=== PATIENT | female | born 1960 | race Caucasian/White ===

== ENCOUNTER 2025-05-26 08:18 | Emergency (ER) | payer OTHER, SELFPAY ==
--- OUTSIDE RECORDS SUMMARY | 2019-12-12 20:00 | XMS_ITS | Continuity of Care Document ---
Author Organization [facility] Address [address] [place] [address] Phone Care Team Providers Care Spray I Painter Name Role Phone Pavlock DO, Max Unavailable [...] Diagnoses Date Provider Providers Copied on Encounter [facility], [address], [place], [id number] , [place] tel: [phone] [facility] Alcohol dependence with withdrawal, uncomplicatedCocaine dependence with withdrawal 0 Pavlock DO Max. [address], [place], [id number] , [place]. tel: [phone] [facility], [address], [place], [id number] , [place] tel: [phone] [facility] Alcohol dependence with withdrawal, uncomplicatedCocaine dependence with withdrawal 0 Pavlock DO Max. [address], [place], [id number] , [place]. tel: [phone] [facility], [address], [place], [id number] , [place] tel: [phone] [facility] Alcohol dependence with withdrawal, uncomplicatedCocaine dependence with withdrawal 0 Pavlock DO Max. [address], [place], [id number] , [place]. tel: [phone] [facility], [address] [place] [address], [id number] , [place] tel: [phone] [facility] Alcohol dependence with withdrawal, uncomplicatedCocaine dependence with withdrawal 0 Pavlock DO Max. [address], [place], [id number] , [place]. tel: [phone] [facility], [address], [place], [id number] , [place] tel: [phone] [facility] alcohol and cocaine dependence (chief complaint) Alcohol dependence with withdrawal, uncomplicatedCocaine dependence with withdrawal 0 Lawrence Lopez. [address], [place], [id number] , [place]. tel: [phone] [facility], [address], [place], [id number] , [place] tel: [phone] [facility] Alcohol dependence with withdrawal, uncomplicatedCocaine dependence with withdrawalEncounter for test, result negative 0 Pavlock DO Max. [address], [place], [id number] , [place]. tel: [phone] [facility], [address], [place], [id number] , [place] tel: [phone] [facility] Alcohol dependence with withdrawal, uncomplicatedCocaine dependence with withdrawalEncounter for test, result negative 0 Pavlock DO Max. [address], [place], [id number] , [place]. tel: [phone] [facility], [address], [place], [address] , [place] tel: [phone] [facility] Alcohol dependence with withdrawal, uncomplicated 0 Pavlock DO Max. [address], [place], [id number] , [place]. tel: [phone] [facility], [address], [place], [address] , [place] tel: [phone] [facility] Alcohol dependence with withdrawal, uncomplicated 0 Pavlock DO Max. [address], [place], [address] , [place]. tel: [phone] [facility], [address], [place], [address] , [place] tel: [phone] [facility] alcohol and cocaine dependence (chief complaint) Alcohol dependence with withdrawal, uncomplicatedCocaine dependence with withdrawal 0 Lawrence Lopez. [address], [place], [id number] , . tel: [phone] [facility], [address], [place], [id number] , [place] tel: [phone] [facility] Alcohol dependence with withdrawal, uncomplicated 0 Pavlock DO Max. [address], [place], [id number] , [place]. tel: [phone] [facility], [address] [place] [address], [id number] , tel: [phone] [facility] Alcohol dependence with withdrawal, uncomplicatedCocaine dependence with withdrawal 0 Pavlock DO Max. [address], [place], [address] , [place]. tel: [phone] Family History Family Member Type Diagnosis Age At Onset Father Problem (finding) malignant neoplasm of l alan Sister Problem (finding) seizure disorder Mother Problem (finding) malignant neoplasm of t hyroid Mother Problem (finding) malignant neoplasm of u terus Payers Payer name Insurance type Covered republican ID Authorkylaha tidavid(s) [employer] Medicaid [place] [id number] Social History Type Description Quantity Date Captured [...]
--- OUTSIDE RECORDS SUMMARY | 2025-04-14 06:00 | XMS_ITS ---
Author Organization [facility] Address [address] [place] [address] Care Team Providers Care [place] Redevelopment Site Manager Name Role Phone Reginaldo Hanley Primary Care Provider [phone] REASON FOR VISIT 1 month f/u chronic Encounters Encounter Location Date Provider Diagnosis [facility] [address] [place] [address] 04/14/2025 Reginaldo Hanley Plan Of Treatment Next Appt Details Provider Name:Reginaldo hinton, 06/07/2025 02:30:00 PM, [address], [place], [address], Progress Notes * ALIRIO CUNHA DDOB: [birth year] (64 yo F)Acc No.[id number]:04/14/2025 Progress Notes Patient: Nessa ALIRIO FOWLER Account Number:[id number] Appointment Provider: Amee Hanley DO :1960 A ge:64 Y S ex:Female Date:04/14/2025 Address:[address] [place], [place] [id number] Subjective: * Chief Complaints: * 1 . 1 month f/u chronic. * Medical History: Objective: * Vitals: Assessment: Plan: * Treatment: * Images: * Electronic signature of Pedro Hanley DO on 05/26/2025 at 08:29 AM EDT Sign off status: Pending * Appointment Provider: Amee Hanley DO Date: 0 04/14/2025 Generated for Printi ng/Faxing/eTransmitting on: 0 05/26/2025 08:29 AM EDT
--- OUTSIDE RECORDS SUMMARY | 2025-04-14 07:15 | XMS_ITS ---
Author Organization [facility] Address [address] [place] [address] Care Team Providers Care Molder Operator Name Role Phone Reginaldo Hanley Primary Care Provider [phone] Velasquez Fidelia Jones [phone] REASON FOR VISIT [facility] @ 10 Encounters Encounter Location Date Provider Diagnosis [facility] [address] [place] [address] 04/14/2025 Fidelia Jones Plan Of Treatment Next Appt Details Provider Name:Reginaldo hinton, 06/07/2025 02:30:00 PM, [address], [place], [address], Progress Notes * ALIRIO CUNHA DDOB: [birth year] (64 yo F)Acc No.[id number]:04/14/2025 Patient: Nessa ALIRIO FOWLER Account Number:[id number] Appointment Provider: Thelma Jones :1960 A ge:64 Y S ex:Female Date:04/14/2025 Address:[address] [place], [place] [id number] Pcp:Reginaldo Hanley Subjective: * Chief Complaints: * 1 . [facility] @ 10. * Medical History: Objective: * Vitals: Assessment: Plan: * Treatment: * Images: * Electronic signature of REY Hou FNP on 05/26/2025 at 08:28 AM EDT Sign off status: Pending * Appointment Provider: Thelma Jones Date: 0 04/14/2025 Generated for Tiffany ruffin/Julio/Ramez on: 0 05/26/2025 08:28 AM EDT
--- OUTSIDE RECORDS SUMMARY | 2025-05-11 13:48 | XMS_ITS | Encounter Summary ---
Author Organization [facility] Address [address] [place] [address] Care Team Providers Care Director Of Investigations Name Role Phone Argelia Bocanegra MD Primary Care Provider [phone] Reason for Referral * Other (Routine) - Not Required - RTA Specialty Diagnoses / Procedures Referred By Contac t Referred To Contact Diagnoses COPD with acute exacerbation (HCC) Hypoxemia Procedures 6 Minute Walk Test Alf Patterson APRN - CNP [address] [place] [address] Phone: tel: fax: Referral ID Status Reason Start Date Expiration Date V isits Requested Visits Authorized [id number] Not Required - RTA 05/09/2025 05/09/2026 1 1 Reason for Visit * Other (Routine) - Not Required - RTA Specialty Diagnoses / Procedures Referred By Contac corazon Referred To Contact Diagnoses COPD with acute exacerbation (HCC) Hypoxemia Procedures 6 Minute Walk Test Alf Patterson APRN - CNP [address] [place] [address] Phone: tel: fax: Referral ID Status Reason Start Date Expiration Date V isits Requested Visits Authorized [id number] Not Required - RTA 05/09/2025 05/09/2026 1 1 Encounter Details Date Type Department Care Team (Latest Contact Info) Description 05/11/2025 1:48 PM EDT - 05/11/2025 11:59 PM EDT Hospital Encounter [facility] [address] [phone] COPD with acute exacerbation (HCC); Hypoxemia Discharge Disposition: Home or Self Care Social History Tobacco Use Types Packs/Day Years Used Date Smoking Tobacco: Every Day Cigarettes 0.3 30 Smokeless Tobacco: Never Alcohol Use Standard Drinks/Week Comments Yes 0 (1 standard drink = 0.6 oz pur e alcohol) [facility] Utilities Answer Date Recorded In the past 12 months has th e electric, gas, oil, or water [employer] threatened to shut off services in your home? No 04/28/2025 AUDIT-C Answer Date Recorded Q1: How often do you have a drink containing alcohol? Never 04/28/2025 Q2: How many drinks containi ng alcohol do you have on a typical day when you are drinking? Patient does not drink Q3: How often do you have si x or more drinks on one occasion? Never 04/28/2025 Hunger Vital Sign Answer Date Recorded Within the past 12 months, y ou worried that your food would run out before you got the money to buy more. Never true 04/28/20 25 Within the past 12 months, t he food you bought just didn't last and you didn't have money to get more. Never true 04/28/2025 PRAPARE - Transportation Answer Date Re corded In the past 12 months, has l ack of transportation kept you from medical appointments or from getting medications? No 03/2025 In the past 12 months, has l ack of transportation kept you from meetings, work, or from getting things needed for daily living? No 04/28/2025 Housing Stability Vital Sign Answer Derrek e Recorded In the last 12 months, was t here a time when you were not able to pay the mortgage or rent on time? No 04/28/2025 In the past 12 months, how m any times have you moved where you were living? 0 04/28/2025 At any time in the past 12 m [facility], were you homeless or living in a long term (including now)? No 04/28/2025 Food Insecurity Answer Date Recorded Within the past 12 months, y ou worried that your food would run out before you got the money to buy more. 1 04/28/2025 Within the past 12 months, t he food you bought just didn't last and you didn't have money to get more. 1 04/28/2025 Interpersonal Safety Domain Source: IP Abuse Scr eening Answer Date Recorded Physical abuse Denies 04/28/2025 Verbal abuse Denies 04/28/2025 Emotional abuse Denies 04/28/2025 Financial abuse Denies 04/28/2025 Sexual abuse Denies 04/28/2025 Comments Unknown Sex and Gender Information Value Date Recorded Sex Assigned at Not on file Legal Sex Female 1:45 AM EST Gender Identity Not on file Sexual Orientation Not on file documented as of this encounter Medications at Time of Discharge levalbuterol (XOPENEX) 0.63 MG/3ML nebulizationIndica tions:COPD exacerbation (HCC) Take 3 mLs by nebulization 4 times daily 120 each 1 05/02/2025 diphenoxylate-atro pine (LOMOTIL) 2.5-0.025 MG per tablet Take 1 tablet by mouth 4 times daily as needed for Diarrhea. Max Daily Amount: 4 tablets guaiFENesin (MUCINEX) 600 MG extended release tablet Take 1 tablet by mouth 2 times daily promethazine (PHENERGAN) 12.5 MG tablet Take 1 tablet by mouth every 6 hours as needed for Nausea acetaminophen (TYLENOL) 325 MG tablet Take 2 tablets by mouth every 6 hours as needed for Pain amLODIPine (NORVASC) 10 MG tablet Take 1 tablet by mouth daily gabapentin (NEURONTIN) 600 MG tablet Take 1 tablet by mouth daily. atorvastatin (LIPITOR) 80 MG tablet Take 1 tablet by mouth daily losartan (COZAAR) 50 MG tablet Take 1 tablet by mouth daily metFORMIN (GLUCOPHAGE) 500 MG tablet Take 1 tablet by mouth 2 times daily (with meals) omeprazole (PRILOSEC) 20 MG delayed release capsule Take 2 capsules by mouth daily budesonide-formote rol (SYMBICORT) 80-4.5 MCG/ACT AERO Inhale 2 puffs into the lungs 2 times daily ipratropium (ATROVENT HFA) 17 MCG/ACT inhaler Inhale 2 puffs into the lungs 4 times daily as needed for Wheezing tiZANidine (ZANAFLEX) 4 MG tablet Take 1 tablet by mouth every 6 hours as needed (muscle spasms) hydrOXYzine pamoate (VISTARIL) 50 MG capsule Take 1 capsule by mouth 3 times daily as needed for Anxiety (Sleep) melatonin 3 MG TABS tablet Take 10 mg by mouth nightly as needed (sleep aid) naloxone 4 MG/0.1ML LIQD nasal spray 1 spray by Nasal route as needed for Opioid Reversal 1 each 03/19/2021 lidocaine (LMX) 4 % creamIndications:L umbar radiculopathy Apply a half dollar sized amount to intact skin topically up to twice daily as needed for pain 1 Tube 1 02/12/2021 propranolol (INDERAL LA) 120 MG extended release capsule Take 160 mg by mouth daily documented as of this encounter Progress Notes * Claudia Brito RCP - 05/11/2025 2:00 PM EDT [facility] Cardiopulmonary Services [address] [place] [address] Name: Casie Patrick : 1960 Diagnisis: <principal problem not specified> Home Oxygen? A home oxygen evaluation has been completed. []Patient is an inpatient. It is expected that the patient will be discharged within the next 48 hours. Qualified provider to write order for home prescription if patient qualifies. If patient is active, arrange for Home Medical supplier to assess for Oxygen Conserving Device per pulse oximetry. [x]Patient is an outpatient. Results will be faxed to the ordering provider. Qualified provider to write order for home prescription if patient qualifies and arranges for home oxygen. Patient arrived on room air. SpO2 was 95 % on room air at rest. Patient was walked for 6 minutes onroom air oxygen saturation between 91-97%. Patient did not qualify for oxygen at this time. documented in this encounter Plan of Treatment Not on file documented as of this encounter Procedures Procedure Name Priority Date/Time Associated Diagnosis Comments 6 MIN WALK TEST Routine 05/11/2025 COPD with acute exacerbation (HCC) Hypoxemia documented in this encounter Results * 6 Minute Walk Test (05/11/2025) SpO2 na % Distance Walked na ft Alf Patterson [employer] - [employer]WORK [employer] PFT ORDERABLES Final R esult documented in this encounter Visit Diagnoses Diagnosis COPD with acute exacerbation (HCC) Obstructive chronic bronchitis with exacerbation Hypoxemia documented in this encounter Care Teams Director Of Investigations Relationship Specialty Start Date End Date Argelia Bocanegra MD PCP - General 01/12/21 documented as of this encounter
--- OUTSIDE RECORDS SUMMARY | 2025-05-26 08:28 | XMS_ITS | Encounter Summary ---
Author [facility] Address [address] [place] [address] Care Team Providers Care Reservationist Name Role Phone Argelia Bocanegra MD Primary Care Provider [phone] Reason for Visit * Reason Comments Medication Refill Encounter Details Date Type Department Care Team (Late st Contact Info) Description 04/12/2021 Refill [facility] [address], [address] [place], [place] [id number] Liv Leong MD [address] [place] [address] [address] [place], [place] [id number] Medication Refill Social History Tobacco Use Types Packs/Day Years Used Date Smoking Tobacco: Every Day Cigarettes 0.3 30 Smokeless Tobacco: Never Alcohol Use Standard Drinks/Week Comments Yes 0 (1 standard drink = 0.6 oz pur e alcohol) Comments Unknown Sex and Gender Information Value Date Recorded Sex Assigned at Not on file Legal Sex Female 1:45 AM EST Gender Identity Not on file Sexual Orientation Not on file documented as of this encounter Plan of Treatment Not on file documented as of this encounter Visit Diagnoses Diagnosis Lumbar radiculopathy Thoracic or lumbosacral neuritis or radiculitis, unspecified Right leg weakness Other musculoskeletal symptoms referable to limbs Encounter for monitoring opioid maintenance therapy Encounter for therapeutic drug monitoring Chronic, continuous use of opioids Opioid type dependence, continuous History of lumbar spinal fusion Spinal stenosis of lumbar region with neurogenic claudication Spinal stenosis, lumbar region, with neurogenic claudication documented in this encounter Additional Health Concerns Infection Onset Date Last Indicated Resolved Time COVID-19 (Rule Out) 04/28/2025 04/28/2025 04/28/20 6:12 PM EDT COVID-19 (Rule Out) 04/28/2025 04/28/2025 04/29/20 5:50 PM EDT Parainfluenza 04/28/2025 04/28/2025 05/08/2025 9:2 7 PM EDT documented as of this encounter Care Teams Reservationist Relationship Specialty Start Date End Date Argelia Bocanegra MD PCP - General 01/12/21 documented as of this encounter
[2025-05-26 08:29] VITALS: BP 178/110; PULSE 69; TEMP 37.2; O2SAT 93; BMI 46.9
--- OUTSIDE RECORDS SUMMARY | 2025-05-26 08:29 | XMS_ITS | Clinical Summary ---
Author Organization [facility] 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 Name Role Phone Argelia Bocanegra MD Primary Care Provider [phone] Allergies Active Allergy Reactions Criticality Noted Date Comments Bee Venom Anaphylaxis High 04/28/2025 Coconut Fatty Acid Anaphylaxis High 04/28/2025 Corticosteroids Anaphylaxis High 04/28/2025 PATIENT REPORTS ALL STEROIDS Fish Allergy Anaphylaxis High 04/28/2025 Iodides Hives High 08/14/2018 Ibuprofen Hives High 08/14/2018 Penicillins Hives High 08/14/2018 Sulfa Antibiotics Hives High 08/14/2018 Tramadol Hcl Hives High 08/14/2018 Medications propranolol (INDERAL LA) 120 MG extended release capsule Take 160 mg by mouth daily Active lidocaine (LMX) 4 % creamIndications: Lumbar radiculopathy Apply a half dollar sized amount to intact skin topically up to twice daily as needed for pain 1 Tube 1 02/13/20 Active Additional Information Patient not taking.Reported on 04/28/2025 naloxone 4 MG/0.1ML LIQD nasal spray 1 spray by Nasal route as needed for Opioid Reversal 1 each 03/19/20 Active Additional Information Patient not taking.Reported on 04/28/2025 diphenoxylate-atr opine (LOMOTIL) 2.5-0.025 MG per tablet Take 1 tablet by mouth 4 times daily as needed for Diarrhea. Max Daily Amount: 4 tablets Active guaiFENesin (MUCINEX) 600 MG extended release tablet Take 1 tablet by mouth 2 times daily Active promethazine (PHENERGAN) 12.5 MG tablet Take 1 tablet by mouth every 6 hours as needed for Nausea Active acetaminophen (TYLENOL) 325 MG tablet Take 2 tablets by mouth every 6 hours as needed for Pain Active amLODIPine (NORVASC) 10 MG tablet Take 1 tablet by mouth daily Active gabapentin (NEURONTIN) 600 MG tablet Take 1 tablet by mouth daily. Active atorvastatin (LIPITOR) 80 MG tablet Take 1 tablet by mouth daily Active losartan (COZAAR) 50 MG tablet Take 1 tablet by mouth daily Active metFORMIN (GLUCOPHAGE) 500 MG tablet Take 1 tablet by mouth 2 times daily (with meals) Active omeprazole (PRILOSEC) 20 MG delayed release capsule Take 2 capsules by mouth daily Active budesonide-formot andi (SYMBICORT) 80-4.5 MCG/ACT AERO Inhale 2 puffs into the lungs 2 times daily Active ipratropium (ATROVENT HFA) 17 MCG/ACT inhaler Inhale 2 puffs into the lungs 4 times daily as needed for Wheezing Active tiZANidine (ZANAFLEX) 4 MG tablet Take 1 tablet by mouth every 6 hours as needed (muscle spasms) Active hydrOXYzine pamoate (VISTARIL) 50 MG capsule Take 1 capsule by mouth 3 times daily as needed for Anxiety (Sleep) Active melatonin 3 MG TABS tablet Take 10 mg by mouth nightly as needed (sleep aid) Active levalbuterol (XOPENEX) 0.63 MG/3ML nebulizationIndic ations:COPD exacerbation (HCC) Take 3 mLs by nebulization 4 times daily 120 each 1 05/02/20 25 Active cyclobenzaprine (FLEXERIL) 10 MG tablet Take 10 mg by mouth 3 times daily as needed for Muscle spasms 025 Discontin ued(LIST CLEANUP) pregabalin (LYRICA) 75 MG capsuleIndication s:Lumbar radiculopathy,Spi nal stenosis of lumbar region with neurogenic claudication Take 1 capsule by mouth nightly for 30 days. 30 capsule 04/16/20 21 025 Discontin ued(LIST CLEANUP) Active Problems Problem Noted Date Diagnosed Date COPD exacerbation 04/28/2025 Diabetes mellitus without complication Opioid dependence 04/28/2025 Post-laminectomy syndrome 04/28/2025 Primary hypertension 09/30/2022 Tobacco use 09/30/2022 Encounters Date Type Department Care Team Description 05/11/2025 1:48 PM EDT - 05/11/2025 11:59 PM EDT Hospital Encounter [facility] [address] [place], [place] [id number] COPD with acute exacerbation (HCC); Hypoxemia Discharge Disposition: Home or Self Care 05/09/2025 Transcribe Orders [facility] [address] [place], [place] [id number] Alf Patterson APRN - CNP COPD with acute exacerbation (HCC) (Primary Dx); Hypoxemia 04/28/2025 4:06 PM EDT - 05/02/2025 6:44 PM EDT Hospital Encounter [facility] [address] [place] [id number] Chioma Link MD Sears, Champ Benitez MD COPD exacerbation (HCC) (Primary Dx); Hypoxemia; Atrial fibrillation, unspecified type (HCC) Discharge Disposition: Inpatient Rehab Facility 04/28/2025 Travel 03/07/2025 1:09 AM EDT - 03/07/2025 11:59 PM EDT Hospital Encounter [facility] [address] [place] [id number] Discharge Disposition: Home or Self Care from Last 3 Months Family History Medical History Relation Name Comments Arthritis Father Cancer Father Diabetes Father Heart Disease Father High Blood Pressure Father Arthritis Mother Cancer Mother Heart Disease Mother Relation Name Status Comments Father Mother Social History Tobacco Use Types Packs/Day Years Used Date Smoking Tobacco: Every Day Cigarettes 0.3 30 Smokeless Tobacco: Never Tobacco Cessation:Ready to Q uit: Yes; Counseling Given: Yes Alcohol Use Standard Drinks/Week Comments Yes 0 (1 standard drink = 0.6 oz pur e alcohol) [facility] Utilities Answer Date Recorded In the past 12 months has e [employer], gas, oil, or water [employer] threatened to shut off services in your [...] any time in the past 12 [facility], were you homeless or living in a fci (including now)? No 04/28/2025 Food Insecurity Answer [...] on file Sexual Orientation Not on file Last Filed Vital Signs Vital Sign Reading Time Taken Comments Blood Pressure 144/84 05/02/2025 12:11 PM EDT Pulse 84 05/02/2025 3:42 PM EDT Temperature 36.8 C (98.3 F) 05/02/2025 7:18 AM EDT Respiratory Rate 20 05/02/2025 3:42 PM EDT Oxygen Saturation 97% 05/02/2025 3:42 PM EDT Inhaled Oxygen Concentration - - Weight 101.2 kg (223 lb) 05/02/2025 11:58 AM EDT Height 149.9 cm (4' 11.02 ) 05/02/2025 11:58 AM EDT Body Mass Index 45.02 05/02/2025 11:58 AM EDT Plan of Treatment Health Maintenance Due Date Last Done Comments Diabetic foot exam 1972 Lipids 1972 Depression Screen 1974 HIV screen 1977 Diabetic Alb to Cr ratio (uACR) test 1980 Diabetic retinal exam 1980 Hepatitis C screen 1980 Pap smear 1983 Cervical cancer screen 1992 HPV (without or with Pap) 1992 Breast cancer screen 2002 Colonoscopy 2007 Colorectal Cancer Screen 2007 FIT/FOBT: Average risk 2007 Fecal-DNA (Cologuard): Average risk 2007 Sigmoidoscopy/CT colonography 2007 Pneumococcal 50+ years Vaccine (2 of 2 - PCV) 07/10/2019 07/10/2018 Shingles vaccine (2 of 2) 09/20/2019 07/26/2019 Respiratory Syncytial Virus (RSV) or age 60 yrs+ (1 - Risk 60-74 years 1-dose series) 2022 COVID-19 Vaccine (3 - season) 2024 04/04/2021, 03/08/2021 Flu vaccine (#1) 06/24/2025 11/06/2022, , 08/30/2021, Additional history exists A1C test (Diabetic or Prediabetic) 03/07/2026 03/07/2025 GFR test (Diabetes, CKD 3-4, OR last GFR 15-59) 05/02/2026 05/02/2025, 05/01/2025, 04/30/2025, Additional history exists DTaP/Tdap/Td vaccine (2 - Td or Tdap) 01/25/2029 01/25/2019 Pneumococcal 0-49 years Vaccine Discontinued 07/10/2018 Diabetes screen Discontinued 03/07/2025 Hepatitis A vaccine Aged Out No longe r eligible based on patient's age to complete this topic Hepatitis B vaccine Aged Out No longe r eligible based on patient's age to complete this topic Hib vaccine Aged Out No longer eligi ble based on patient's age to complete this topic Meningococcal (ACWY) vaccine Aged Out No longer eligible based on patient's age to complete this topic Meningococcal B vaccine Aged Out No l onger eligible based on patient's age to complete this topic Polio vaccine Aged Out No longer elig ible based on patient's age to complete this topic Procedures Procedure Name Priority Date/Time Associated Diagnosis Comments 6 MIN WALK TEST Routine 05/11/2025 COPD with acute exacerbation (HCC) Hypoxemia EKG RHYTHM STRIP Routine 05/02/2025 3:00 PM EDT ECHO (TTE) COMPLETE Routine 05/02/2025 1 0:30 AM EDT Atrial fibrillation, unspecified type (HCC) EKG RHYTHM STRIP Routine 05/02/2025 8:35 AM EDT EKG RHYTHM STRIP Routine 05/02/2025 6:00 AM EDT C-REACTIVE PROTEIN Routine 05/02/2025 5: 30 AM EDT PROCALCITONIN Routine 05/02/2025 5:30 AM EDT CBC WITH AUTO DIFFERENTIAL Routine 05/02/2025 5:30 AM EDT BASIC METABOLIC PANEL W/ REFLEX TO MG FOR LOW K Routine 05/02/2025 5:30 AM EDT EKG RHYTHM STRIP Routine 05/01/2025 11:5 7 PM EDT EKG RHYTHM STRIP Routine 05/01/2025 11:0 0 AM EDT C-REACTIVE PROTEIN Routine 05/01/2025 5: 14 AM EDT PROCALCITONIN Routine 05/01/2025 5:14 AM EDT CBC WITH AUTO DIFFERENTIAL Routine 05/01/2025 5:14 AM EDT BASIC METABOLIC PANEL W/ REFLEX TO MG FOR LOW K Routine 05/01/2025 5:14 AM EDT EKG RHYTHM STRIP Routine 05/01/2025 1:49 AM EDT EKG 12-LEAD Routine 04/30/2025 6:11 PM EDT EKG RHYTHM STRIP Routine 04/30/2025 6:06 PM EDT BLOOD GAS, ARTERIAL Routine 04/30/2025 1 1:37 AM EDT MICROSCOPIC URINALYSIS Routine 04/30/2025 7:50 AM EDT DRUG SCREEN, PAIN Routine 04/30/2025 7:5 0 AM EDT URINALYSIS WITH REFLEX TO CULTURE [employer] Label Print 04/30/2025 7:50 AM EDT URINE DRUG SCREEN [employer] Label Print 04/30/2025 7:50 AM EDT BLOOD GAS, VENOUS Routine 04/30/2025 6:4 0 AM EDT XR CHEST PORTABLE STAT 04/30/2025 6:2 7 AM EDT EKG RHYTHM STRIP Routine 04/30/2025 6:00 AM EDT BRAIN NATRIURETIC PEPTIDE Add-On 04/30/2025 4:55 AM EDT C-REACTIVE PROTEIN Routine 04/30/2025 4: 55 AM EDT PROCALCITONIN Routine 04/30/2025 4:55 AM EDT CBC WITH AUTO DIFFERENTIAL Routine 04/30/2025 4:55 AM EDT BASIC METABOLIC PANEL W/ REFLEX TO MG FOR LOW K Routine 04/30/2025 4:55 AM EDT BLOOD GAS, VENOUS Routine 04/30/2025 4:3 9 AM EDT EKG RHYTHM STRIP Routine 04/30/2025 12:0 0 AM EDT BLOOD GAS, ARTERIAL Routine 04/29/2025 4 :40 PM EDT EKG RHYTHM STRIP Routine 04/29/2025 3:00 PM EDT BLOOD GAS, ARTERIAL Routine 04/29/2025 1 :11 PM EDT EKG RHYTHM STRIP Routine 04/29/2025 11:3 1 AM EDT BLOOD GAS, ARTERIAL Routine 04/29/2025 9 :54 AM EDT CBC WITH AUTO DIFFERENTIAL Routine 04/29/2025 6:05 AM EDT BASIC METABOLIC PANEL W/ REFLEX TO MG FOR LOW K Routine 04/29/2025 6:05 AM EDT EKG RHYTHM STRIP Routine 04/29/2025 6:00 AM EDT EKG RHYTHM STRIP Routine 04/29/2025 12:0 0 AM EDT EKG RHYTHM STRIP Routine 04/28/2025 8:54 PM EDT BLOOD GAS, VENOUS Routine 04/28/2025 5:5 6 PM EDT RESPIRATORY PANEL, MOLECULAR, WITH COVID-19 [employer] Label Print 04/28/2025 5:35 PM EDT RAPID INFLUENZA A/B ANTIGENS STAT 04/28/2025 5:35 PM EDT COVID-19, RAPID STAT 04/28/2025 5:35 PM EDT D-DIMER, QUANTITATIVE STAT 04/28/2025 5:25 PM EDT HEPATIC FUNCTION PANEL STAT 04/28/2025 5:17 PM EDT TROPONIN STAT 04/28/2025 5:15 PM EDT CBC WITH AUTO DIFFERENTIAL STAT 04/28/2025 5:15 PM EDT BRAIN NATRIURETIC PEPTIDE STAT 04/28/2025 5:15 PM EDT BASIC METABOLIC PANEL STAT 04/28/2025 5:15 PM EDT XR CHEST PORTABLE STAT 04/28/2025 4:4 0 PM EDT EKG 12-LEAD STAT 04/28/2025 4:07 PM EDT MICROSCOPIC URINALYSIS Routine 03/07/2025 7:50 AM EDT URINALYSIS Routine 03/07/2025 7:50 AM EDT APTT Routine 03/07/2025 7:50 AM EDT PROTIME-INR Routine 03/07/2025 7:50 AM EDT HEMOGLOBIN A1C Routine 03/07/2025 7:50 AM EDT FERRITIN Routine 03/07/2025 7:50 AM EDT IRON AND TIBC Routine 03/07/2025 7:50 AM EDT COMPREHENSIVE METABOLIC PANEL Routine 03/07/2025 7:50 AM EDT CBC Routine 03/07/2025 7:50 AM EDT from Last 3 Months Results * 6 Minute Walk Test (05/11/2025) SpO2 na % Distance Walked na ft us Alf Patterson 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 05/02/2025 3:00 PM EDT Narrative [facility] - 05/02/2025 4:22 PM EDT us Unknown Provider Result ECG ORDERABLES Final Re sult [facility] [address] [phone] * (ABNORMAL) ECHO (TTE) COMPLETE (05/02/2025 10:30 AM EDT) LV EDV A2C 74 mL [facility] CV CPACS LV EDV A4C 92 mL [facility] CV [facility]ACS LV ESV A2C 32 mL [facility] CV [facility]ACS LV ESV A4C 41 mL [facility] CV CPACS IVSd 1.2(A) 0.6 - 0.9 cm [facility] CV CPACS LVIDd 4.6 3.9 - 5.3 cm [facility] LVIDs 3.2 cm [facility] LVOT Diameter 2.0 cm [facility] LVOT Mean Gradient 5 mmHg [facility] LVOT VTI 27.7 cm [facility] LVOT Peak Velocity 1.5 m/s [facility] LVOT Peak Gradient 9 mmHg [facility] LVPWd 1.1(A) 0.6 - 0.9 cm BS CV CPACS LV E' Lateral Velocity 11.00 cm/s BS [facility] LV E' Septal Velocity 7.51 cm/s [facility] LV Ejection Fraction A2C 57 % BS CV [facility]ACS LV Ejection Fraction A4C 56 % BS CV [facility]ACS EF BP 58 55 - 100 % BS [facility] LVOT Area 3.1 cm2 BS CV [facility]ACS LVOT SV 87.0 ml BS CV CPACS LA Minor Lingle 5.2 cm BS CV CPACS LA Major Lingle 6.1 cm BS CV CPACS LA Area 2C 16.7 cm2 BS CV CPACS LA Area 4C 21.6 cm2 BS CV CPACS LA Volume MOD A2C 45 22 - 52 mL BS CV CPACS LA Volume MOD A4C 61(A) 22 - 52 mL BS CV CPACS LA Volume BP 57(A) 22 - 52 mL BS CV CPACS LA Diameter 4.3 cm BS CV CPACS RA Area 4C 9.9 cm2 BS CV CPACS RA Volume 18 ml BS CV [facility]ACS AV Cusp Mmode 1.7 cm BS CV CPACS AV Mean Gradient 8 mmHg BS CV [facility] AV VTI 34.9 cm BS CV CPACS AV Mean Velocity 1.3 m/s BS CV [facility]ACS AV Peak Velocity 1.9 m/s BS CV CPACS AV Peak Gradient 14 mmHg BS CV [facility] AV Area by VTI 2.5 cm2 BS CV [facility] AV Area by Peak Velocity 2.5 cm2 BS CV CPACS Aortic Root 2.9 cm BS CV CPACS IVC Proxmal 1.3 cm BS CV CPACS MV E Wave Deceleration Time 215.0 ms BS CV [facility] MV A Velocity 1.16 m/s BS [facility] MV E Velocity 1.15 m/s BS CV [facility]ACS MV Mean Gradient 4 mmHg BS CV [facility] MV VTI 41.7 cm BS CV CPACS MV Mean Velocity 0.9 m/s BS [facility]ACS MV Max Velocity 1.3 m/s BS CV [facility]ACS MV Peak Gradient 7 mmHg BS [facility] MV Area by VTI 2.1 cm2 BS CV CPACS RV Basal Dimension 2.9 cm BS CV CPACS TAPSE 2.0 >=1.7 cm BS CV CPACS TR Max Velocity 2.72 m/s [facility] CV CPACS TR Peak Gradient 30 mmHg [facility] CV CPACS Body Surface Area 2.05 m2 BS CV CPACS Fractional Shortening 2D 30 28 - 44 % BS [facility] LV ESV Index A4C 21 mL/m2 BS CV [facility]ACS LV EDV Index A4C 48 mL/m2 BS [facility] LV ESV Index A2C 17 mL/m2 [facility] LV EDV Index A2C 38 mL/m2 [facility]ACS LVIDd Index 2.38 cm/m2 [facility] LVIDs Index 1.66 cm/m2 [facility] LV RWT Ratio 0.48 [facility] LV Mass 2D 192.9(A) 67 - 162 g BS [facility] LV Mass 2D Index 100.0(A) 43 - 95 g/m2 [facility] CV CPACS MV E/A 0.99 [facility] CV CPACS E/E' Ratio (Averaged) 12.88 [facility] CV CPACS E/E' Lateral 10.45 [facility] CV [facility]ACS E/E' Septal 15.31 [facility] CV CPACS LA Volume Index BP 30 16 - 34 ml/m2 [facility] CV [facility]ACS LVOT Stroke Volume Index 45.1 mL/m2 [facility] CV CPACS LA Volume Index MOD A2C 23 16 - 34 ml/m2 [facility] CV CPACS LA Volume Index MOD A4C 32 16 - 34 ml/m2 [facility] CV CPACS LA Size Index 2.23 cm/m2 [facility] LA/AO Root Ratio 1.48 [facility] RA Volume Index A4C 9 mL/m2 [facility] CPACS Ao Root Index 1.50 cm/m2 [facility] AV Velocity Ratio 0.79 [facility] LVOT:AV VTI Index 0.79 [facility] CV CPACS RADHA/BSA VTI 1.3 cm2/m2 [facility] CV CPACS RADHA/BSA Peak Velocity 1.3 cm2/m2 [facility] CPACS MV:LVOT VTI Index 1.51 [facility] CV CPACS Est. RA Pressure 3 mmHg [facility] CV CPACS RVSP 33 mmHg [facility] CV CPACS EF Physician 60 % BS CV CPACS Anatomical Region Laterality Modality Echocardiography Narrative 05/02/2025 1:13 PM EDT Left Ventricle: Normal left ventricular systolic function with a visually estimated EF of 55 - 60%. EF by 2D Simpsons Biplane is 58%. Left ventricle size is normal. Mildly increased wall thickness. Normal wall motion. Grade I diastolic dysfunction with normal LAP. E/E' Ratio (Averaged) is 12.88. Right Ventricle: Right ventricle size is normal. RV Basal Dimension is 2.9 cm. Normal systolic function. TAPSE is normal. TAPSE is 2.0 cm. Mitral Valve: There is mild posterior annular calcification noted. Thickened leaflets. Mild regurgitation. No stenosis noted. MV Mean Gradient is 4 mmHg. Tricuspid Valve: Mild regurgitation. Mildly elevated RVSP, consistent with mild pulmonary hypertension. RVSP is 33 mmHg. Left Atrium: Left atrium size is normal. Left atrial volume index is normal (16-34 mL/m2) mL/m2. LA Volume Index BP is 30 ml/m2. Pulmonary Arteries: Pulmonary artery was not assessed. Pericardium: The pericardium is normal. No pericardial effusion. Left Ventricle Normal left ventricular systolic function with a visually estimated EF of 55 - 60%. EF by 2D Simpsons Biplane is 58%. Left ventricle size is normal. Mildly increased wall thickness. Normal wall motion. Grade I diastolic dysfunction with normal LAP. E/E' Ratio (Averaged) is 12.88. Right Ventricle Right ventricle size is normal. RV Basal Dimension is 2.9 cm. Normal systolic function. TAPSE is normal. TAPSE is 2.0 cm. Left Atrium Left atrium size is normal. Left atrial volume index is normal (16-34 mL/m2) mL/m2. LA Volume Index BP is 30 ml/m2. Right Atrium Right atrium size is normal. IVC/SVC IVC diameter is normal or and decreases greater than 50% during inspiration; therefore the estimated right atrial pressure is normal (~3 mmHg). IVC size is normal. Mitral Valve There is mild posterior annular calcification noted. Thickened leaflets. Mild regurgitation. No stenosis noted. MV Mean Gradient is 4 mmHg. Tricuspid Valve Valve structure is normal. Mild regurgitation. No stenosis noted. Mildly elevated RVSP, consistent with mild pulmonary hypertension. RVSP is 33 mmHg. Aortic Valve Valve structure is normal. Physiologically normal regurgitation. No stenosis. Pulmonic Valve The pulmonic valve visualization is suboptimal but appears to be functioning normally. Physiologically normal regurgitation. No stenosis noted. Ascending Aorta Normal sized aortic root. Pericardium The pericardium is normal. No pericardial effusion. Septum No interatrial shunt visualized with color Doppler. Pulmonary Artery Pulmonary artery was not assessed. Study Details Image quality: adequate. The view(s) performed were parasternal, apical, subcostal and suprasternal. Heart rate was 83 bpm. The underlying ECG rhythm was sinus rhythm. Color flow Doppler was performed and pulse wave and/or continuous wave Doppler was performed. No contrast was given. Arash Barrientos MD CV ECHO ORDERABLES Final Result * Procalcitonin (05/02/2025 5:30 AM EDT) Only the most recent of3 resultswithin the time period is included. Procalcitonin 0.06 0.00 - 0.09 ng/mL 05/02/2025 5:30 AM EDT [facility] Comment: Suspected Sepsis: <0.50 ng/mL Low likelihood of sepsis. 0.50-2.00 ng/mL Increased likelihood of sepsis. Antibiotics encouraged. >2.00 ng/mL High risk of sepsis/shock. Antibiotics strongly encouraged. Suspected Lower Resp Tract Infections: <0.24 ng/mL Low likelihood of bacterial infection. >0.24 ng/mL Increased likelihood of bacterial infection. Antibiotics encouraged. With successful antibiotic therapy, PCT levels should decrease rapidly. (Half- life of 24 to 36 hours.) Procalcitonin values from samples collected within the first 6 hours of systemic infection may still be low. Retesting may be indicated. Values from day 1 and day 4 can be entered into the Change in Procalcitonin Calculator ([email or web address]) to determine the patient's Mortality Risk Prognosis In healthy neonates, plasma Procalcitonin (PCT) concentrations increase gradually after , reaching peak values at about 24 hours of age then decrease to normal values below 0.5 ng/mL by 48-72 hours of age. Blood BLOOD SPECIMEN / Unknown 05/02/2025 5:30 AM EDT 05/02/2025 6:08 AM EDT Arash Barrientos MD CHEMISTRY ORDERABLES Final Resul t [facility] [address] [place] [address], [facility] [phone] [place] [id number] [place], [place] [address] [phone] * (ABNORMAL) Basic Metabolic Panel w/ Reflex to MG (05/02/2025 5:30 AM EDT) Only the most recent of4 resultswithin the time period is included. Sodium 143 136 - 145 mmol/L 05/02/2025 5:30 AM EDT [facility] Potassium 4.2 3.7 - 5.3 mmol/L 05/02/2025 5:30 AM EDT [facility] Chloride 106 98 - 107 mmol/L 05/02/2025 5:30 AM EDT [facility] CO2 25 20 - 31 mmol/L 05/02/2025 5:30 AM EDT [facility] Anion Gap 12 9 - 16 mmol/L 05/02/2025 5:30 AM EDT [facility] Glucose 105(H) 74 - 99 mg/dL 05/02/2025 5:30 AM EDT [facility] BUN 16 8 - 23 mg/dL 05/02/2025 5:30 AM [facility] Creatinine 0.9 0.50 - 0.90 mg/dL 05/02/2025 5:30 AM [facility] Est, Glom Filt Rate 73 >60 mL/min/1.7 3m2 05/02/2025 5:30 AM EDT [facility] Comment: These results are not intended for use in patients <18 years of age. eGFR results are calculated without a race factor using the 2020 CKD-EPI equation. Careful clinical correlation is recommended, particularly when comparing to results calculated using previous equations. The CKD-EPI equation is less accurate in patients with extremes of muscle mass, extra-renal metabolism of creatine, excessive creatine ingestion, or following therapy that affects renal tubular secretion. BUN/Creatinine Ratio 18 9 - 20 05/02/2025 5:30 AM EDT [facility] Calcium 10.2 8.6 - 10.4 mg/dL 05/02/2025 5:30 AM T [facility] BLOOD SPECIMEN / Unknown 05/02/2025 5:30 AM EDT 05/02/2025 6:07 AM EDT Champ Delatorre MD CHEMISTRY ORDERABLES Alba trevino Result [facility] [address] [phone] * (ABNORMAL) CBC auto differential (05/02/2025 5:30 AM EDT) Only the most recent of5 resultswithin the time period is included. WBC 9.7 3.5 - 11.3 k/uL 05/02/2025 5:30 AM [facility] RBC 4.14 3.95 - 5.11 m/uL 05/02/2025 5:30 AM [facility] Hemoglobin 10.0(L) 11.9 - 15.1 g/dL 05/02/2025 5:30 AM [facility] Hematocrit 33.5(L) 36.3 - 47.1 % 05/02/2025 5:30 AM [facility] MCV 80.9(L) 82.6 - 102.9 fL 05/02/2025 5:30 AM [facility] MCH 24.2(L) 25.2 - 33.5 pg 05/02/2025 5:30 AM [facility] MCHC 29.9 28.4 - 34.8 g/dL 05/02/2025 5:30 AM [facility] RDW 16.0(H) 11.8 - 14.4 % 05/02/2025 5:30 AM [facility] Platelets 293 138 - 453 k/uL 05/02/2025 5:30 AM [facility] MPV 10.9 8.1 - 13.5 fL 05/02/2025 5:30 AM [facility] NRBC Automated 0.0 0.0 per 100 WBC 05/02/2025 5:30 AM [facility] Neutrophils % 49 36 - 65 % 05/02/2025 5:30 AM [facility] Lymphocytes % 41 24 - 43 % 05/02/2025 5:30 AM [facility] Monocytes % 5 3 - 12 % 05/02/2025 5:30 AM [facility] Eosinophils % 5(H) 1 - 4 % 05/02/2025 5:30 AM [facility] Immature Granulocytes % 0 0 % 05/02/2025 5:30 AM [facility] Basophils % 0 0 - 2 % 05/02/2025 5:30 AM [facility] Neutrophils Absolute 4.74 1.50 - 8.10 k/uL 05/02/2025 5:30 AM [facility] Lymphocytes Absolute 3.98(H) 1.10 - 3.70 k/uL 05/02/2025 5:30 AM [facility] Monocytes Absolute 0.49 0.10 - 1.20 k/uL 05/02/2025 5:30 AM [facility] Eosinophils Absolute 0.49(H) 0.00 - 0.44 k/uL 05/02/2025 5:30 AM [facility] Immature Granulocytes Absolute 0.00 0.00 - 0.30 k/uL 05/02/2025 5:30 AM [facility] Basophils Absolute 0.00 0.0 - 0.2 k/uL 05/02/2025 5:30 AM [facility] Morphology Normal 05/02/2025 5:30 AM [facility] 05/02/2025 5:30 AM EDT 05/02/2025 6:07 AM EDT us Champ Delatorre MD HEMATOLOGY ORDERABLES Fin al Result Performing Organization Address City/[facility]/ZIP Co de Phone Number [facility] [address] [phone] * (ABNORMAL) C-Reactive Protein (05/02/2025 5:30 AM EDT) Only the most recent of3 resultswithin the time period is included. CRP 19.2(H) 0.0 - 5.0 mg/L 05/02/2025 5:30 AM EDT [facility] BLOOD SPECIMEN / Unknown 05/02/2025 5:30 AM EDT 05/02/2025 6:07 AM EDT Arash Barrientos MD CHEMISTRY ORDERABLES Final Resul t Performing Organization Address City/[facility]/ZIP Co de Phone Number [facility] [address] [phone] * EKG 12 Lead (04/30/2025 6:11 PM EDT) Only the most recent of2 resultswithin the time period is included. Ventricular Rate 127 BPM [facility] QRS Duration 78 ms [facility] ID H RADIOLOGY Q-T Interval 304 ms [facility] RADIOLOGY QTc Calculation (Bazett) 441 ms [facility] R Lingle 71 degrees [facility] T Lingle 80 degrees [facility] 04/30/2025 6:11 PM EDT Narrative [facility] - 05/02/2025 12:11 AM EDT Atrial fibrillation with rapid ventricular response Nonspecific ST abnormality Abnormal ECG ECG not diagnostic for Acute Coronary Syndrome; consider clinical findings When compared with ECG of 28-Apr-2025 16:07, Atrial fibrillation has replaced Sinus rhythm Vent. rate has increased by 54 bpm T wave amplitude has decreased in Inferior leads Confirmed by John Contreras ([id number]) on 05/02/2025 12:11:10 AM Procedure Note John Contreras MD - 05/02/2025 Atrial fibrillation with rapid ventricular response Nonspecific ST abnormality Abnormal ECG ECG not diagnostic for Acute Coronary Syndrome; consider clinicalfindings When compared with ECG of 28-Apr-2025 16:07, Atrial fibrillation has replaced Sinus rhythm Vent. rate has increased by 54 bpm T wave amplitude has decreased in Inferior leads Confirmed by John Contreras ([id number]) on 05/02/2025 12:11:10 AM Arash Barrientos MD ECG ORDERABLES Final Result [facility] * (ABNORMAL) Blood Gas, Arterial (04/30/2025 11:37 AM EDT) Only the most recent of4 resultswithin the time period is included. pH, Arterial 7.326(L) 7.35 - 7.45 04/30/2025 11:37 AM [facility] pCO2, Arterial 52.7(H) 35 - 45 mmHg 04/30/2025 11:37 AM [facility] pO2, Arterial 68.8(L) 80.0 - 100.0 mmHg 04/30/2025 11:37 AM [facility] HCO3, Arterial 26.9(H) 22 - 26 mmol/L 04/30/2025 11:37 AM [facility] Positive Base Excess, Art 0.0 0.0 - 2.0 mmol/L 04/30/2025 11:37 AM [facility] O2 Sat, Arterial 92.3(L) 95 - 98 % 04/30/2025 11:37 AM [facility] Pt Temp 37.0 04/30/2025 11:37 AM [facility] pH, Art, Temp Adj 7.326(L) 7.350 - 7.450 04/30/2025 11:37 AM [facility] pCO2, Art, Temp Adj 52.7(HH) 35.0 - 45.0 04/30/2025 11:37 AM [facility] pO2, Art, Temp Adj 68.8(L) 80.0 - 100.0 mmHg 04/30/2025 11:37 AM T [facility] O2 Device/Flow/% BIPAP 04/30/2025 11:37 AM T [facility] Luis M Test YES 04/30/2025 11:37 AM [facility] Sample Site Right Brachial Artery 04/30/2025 11:37 AM T [facility] FIO2 45 04/30/2025 11:37 AM T [facility] 04/30/2025 11:3 7 AM EDT 04/30/2025 11:40 AM EDT us Champ Delatorre MD CHP ABG ORDER Final Res ult [facility] [address] [phone] * Urinalysis with Reflex to Culture (04/30/2025 7:50 AM EDT) Color, UA Yellow Yellow 04/30/2025 7:50 AM [facility] Turbidity UA Clear Clear 04/30/2025 7:50 AM [facility] Glucose, Ur NEGATIVE NEGATIVE mg/dL 04/30/2025 7:50 AM [facility] Bilirubin, Urine NEGATIVE NEGATIVE 04/30/2025 7:50 AM [facility] Ketones, Urine NEGATIVE NEGATIVE mg/dL 04/30/2025 7:50 AM [facility] Specific [place], UA 1.015 1.010 - 1.020 04/30/2025 7:50 AM [facility] Urine Hgb NEGATIVE NEGATIVE 04/30/2025 7:50 AM [facility] pH, Urine 6.0 5.0 - 9.0 04/30/2025 7:50 AM [facility] Protein, UA NEGATIVE NEGATIVE mg/dL 04/30/2025 7:50 AM [facility] Urobilinogen, Urine Normal 0.0 - 1.0 EU/dL 04/30/2025 7:50 AM T [facility] Nitrite, Urine NEGATIVE NEGATIVE 04/30/2025 7:50 AM EDT [facility] Leukocyte Esterase, Urine NEGATIVE NEGATIVE 04/30/2025 7:50 AM [facility] Urine 04/30/2025 7:50 AM EDT 04/30/2025 7:57 AM EDT us Arash Barrientos MD URINE ORDERABLES Final Result [facility] [address] [phone] * (ABNORMAL) Drug screen multi urine (04/30/2025 7:50 AM EDT) Pathologist [facility] Amphetamine Screen, Ur NEGATIVE NEGATIVE 04/30/2025 7:50 AM [facility] Comment:Cutoff: 1000 ng/mL Barbiturate Screen, Ur NEGATIVE NEGATIVE 04/30/2025 7:50 AM [facility] Comment:Cutoff: 200 ng/ml Benzodiazepine Screen, Urine NEGATIVE NEGATIVE 04/30/2025 7:50 AM [facility] Comment:Cutoff: 200 ng/ml Cocaine Metabolite, Urine NEGATIVE NEGATIVE 04/30/2025 7:50 AM [facility] Comment:Cutoff: 300 ng/ml Methadone Screen, Urine NEGATIVE NEGATIVE 04/30/2025 7:50 AM [facility] Comment:Cutoff: 300 ng/ml Opiates, Urine POSITIVE(A) NEGATIVE 7:50 AM [facility] Comment: Cutoff: 300 ng/ml Note: The Opiate screen is not intended to detect Oxycodone. Phencyclidine, Urine NEGATIVE NEGATIVE 04/30/2025 7:50 AM [facility] Comment:Cutoff: 25 ng/ml Cannabinoid Scrn, Ur NEGATIVE NEGATIVE 04/30/2025 7:50 AM [facility] Comment:Cutoff: 50 ng/ml Oxycodone Screen, Ur NEGATIVE NEGATIVE 04/30/2025 7:50 AM EDT [facility] Comment:Cutoff: 100 ng/ml Fentanyl, Ur NEGATIVE NEGATIVE 04/30/2025 7:50 AM EDT [facility] Comment:Cutoff: 5 ng/ml Test Information This method is a screening test to detect only these drug classes as part of a medical workup. Confirmatory testing by another method should be ordered if clinically indicated. 04/30/2025 7:50 AM EDT [facility] Urine (Urine) 04/30/2025 7:5 0 AM EDT 04/30/2025 7:57 AM EDT Arash Barrientos MD URINE ORDERABLES Final Result [facility] [address] [phone] * DRUG SCREEN, PAIN (04/30/2025 7:50 AM EDT) Pathologist [facility] Drug Panel Interp, Urine See Note 04/30/2025 7:50 AM EDT [facility] Comment: (NOTE) NO DRUGS PROVIDED Please call [employer] at [phone] for Director Of Partner Marketing interpretation if applicable. Alternatively, please consider the TARGETED DRUG PROF, MANUFACTURING ADVISOR/EMIT, UR ([id number]) which does not require medication information or provide compliance interpretation. INTERPRETIVE INFORMATION: Targeted drug profile Interp Interpretation depends on accuracy and completeness of patient medication information submitted by client. 6-Acetylmorphine, Ur Not Detected 04/30/2025 7:50 AM EDT [facility] Comment: (NOTE) INTERPRETIVE INFORMATION:6-acetylmorphine, U Positive Cutoff: 20 ng/mL Methodology: Mass Spectrometry 7-Aminoclonazepam, Urine Not Detected 04/30/2025 7:50 AM EDT [facility] Comment: (NOTE) INTERPRETIVE INFORMATION:7-Aminoclonazepam, U Positive Cutoff: 40 ng/mL Methodology: Mass Spectrometry Wzmcw-UB-Axsccr, Urine Not Detected 04/30/2025 7:50 AM EDT [facility] Comment: (NOTE) INTERPRETIVE INFORMATION:Frxmf-KE-Rwkuahnfbn, U Positive Cutoff: 20 ng/mL Methodology: Mass Spectrometry Alprazolam, Urine Not Detected 04/30/2025 7:50 AM EDT [facility] Comment: (NOTE) INTERPRETIVE INFORMATION:Alprazolam, U Positive Cutoff: 40 ng/mL Methodology: Mass Spectrometry Amphetamine, Urine Not Detected 04/30/2025 7:50 AM EDT [facility] Comment: (NOTE) INTERPRETIVE INFORMATION:Amphetamine, U Positive Cutoff: 50 ng/mL Methodology: Mass Spectrometry Barbiturates, Urine Negative 04/30 7:50 AM EDT [facility] Comment: (NOTE) Presumptive negative by immunoassay. Testing by mass spectrometry is available on request. INTERPRETIVE INFORMATION:Barbiturates Screen, U Positive Cutoff: 200 ng/mL Methodology: Immunoassay Benzoylecgonine, Ur Negative 04/30 7:50 AM EDT [facility] Comment: (NOTE) Presumptive negative by immunoassay. Testing by mass spectrometry is available on request. INTERPRETIVE INFORMATION:Cocaine Screen, U Positive Cutoff: 150 ng/mL Methodology: Immunoassay Buprenorphine Urine Not Detected 04/30/2025 7:50 AM EDT [facility] Comment: (NOTE) INTERPRETIVE INFORMATION:Buprenorphine, U Positive Cutoff: 5 ng/mL Methodology: Mass Spectrometry Carisoprodol, Urine Negative 04/30 7:50 AM EDT [facility] Comment: (NOTE) Presumptive negative by immunoassay. Testing by mass spectrometry is available on request. INTERPRETIVE INFORMATION: Carisoprodol Screen, U Positive Cutoff: 100 ng/mL Methodology: Immunoassay The carisoprodol immunoassay has cross-reactivity to carisoprodol and meprobamate. Clonazepam, Urine Not Detected 04/30/2025 7:50 AM EDT [facility] Comment: (NOTE) INTERPRETIVE INFORMATION:Clonazepam, U Positive Cutoff: 20 ng/mL Methodology: Mass Spectrometry Codeine, Urine Not Detected 04/30/2025 7:50 AM EDT [facility] Comment: (NOTE) INTERPRETIVE INFORMATION: Codeine, U Positive Cutoff: 40 ng/mL Methodology: Mass Spectrometry MDA, Urine Not Detected 04/30/2025 7:50 AM EDT [facility] Comment: (NOTE) INTERPRETIVE INFORMATION:MDA, U Positive Cutoff: 200 ng/mL Methodology: Mass Spectrometry Diazepam, Urine Not Detected 04/30/2025 7:50 AM EDT [facility] Comment: (NOTE) INTERPRETIVE INFORMATION:Diazepam, U Positive Cutoff: 50 ng/mL Methodology: Mass Spectrometry Ethyl Glucuronide Ur Negative 04/30/2025 7:50 AM EDT [facility] Comment: (NOTE) Presumptive negative by immunoassay. Testing by mass spectrometry is available on request. INTERPRETIVE INFORMATION:Ethyl Glucuronide Screen, U Positive Cutoff: 500 ng/mL Methodology: Immunoassay Fentanyl, Ur Not Detected 04/30/2025 7:50 AM EDT [facility] Comment: (NOTE) INTERPRETIVE INFORMATION:Fentanyl, U Positive Cutoff: 2 ng/mL Methodology: Mass Spectrometry Hydrocodone, Urine Present 2024 7:50 AM EDT [facility] Comment: (NOTE) INTERPRETIVE INFORMATION:Hydrocodone, U Positive Cutoff: 40 ng/mL Methodology: Mass Spectrometry Hydromorphone, Urine Not Detected 04/30/2025 7:50 AM EDT [facility] Comment: (NOTE) INTERPRETIVE INFORMATION:Hydromorphone, U Positive Cutoff: 20 ng/mL Methodology: Mass Spectrometry Lorazepam, Urine Present 04/30/20 7:50 AM EDT [facility] Comment: (NOTE) INTERPRETIVE INFORMATION:Lorazepam, U Positive Cutoff: 60 ng/mL Methodology: Mass Spectrometry Marijuana Metab, Ur Negative 04/30 7:50 AM EDT [facility] Comment: (NOTE) Presumptive negative by immunoassay. Testing by mass spectrometry is available on request. INTERPRETIVE INFORMATION: THC (Cannabinoids) Screen, U Positive Cutoff: 50 ng/mL Methodology: Immunoassay MDEA, [place], Ur Not Detected 04/30/2025 7:50 AM EDT [facility] Comment: (NOTE) INTERPRETIVE INFORMATION:MDEA, U Positive Cutoff: 200 ng/mL Methodology: Mass Spectrometry MDMA, Urine Not Detected 04/30/2025 7:50 AM EDT [facility] Comment: (NOTE) INTERPRETIVE INFORMATION:MDMA, U Positive Cutoff: 200 ng/mL Methodology: Mass Spectrometry Meperidine Metab, Ur Not Detected 04/30/2025 7:50 AM EDT [facility] Comment: (NOTE) INTERPRETIVE INFORMATION:Meperidine metabolite, U Positive Cutoff: 50 ng/mL Methodology: Mass Spectrometry Methadone, Urine Negative 04/30/20 7:50 AM EDT [facility] Comment: (NOTE) Presumptive negative by immunoassay. Testing by mass spectrometry is available on request. INTERPRETIVE INFORMATION: Methadone Screen, U Positive Cutoff: 150 ng/mL Methodology: Immunoassay Methamphetamine, Urine Not Detected 04/30/2025 7:50 AM EDT [facility] Comment: (NOTE) INTERPRETIVE INFORMATION:Methamphetamine, U Positive Cutoff: 200 ng/mL Methodology: Mass Spectrometry Methylphenidate Not Detected 04/30/2025 7:50 AM EDT [facility] Comment: (NOTE) INTERPRETIVE INFORMATION:Methylphenidate, U Positive Cutoff: 100 ng/mL Methodology: Mass Spectrometry Midazolam, Urine Not Detected 04/30/2025 7:50 AM EDT [facility] Comment: (NOTE) INTERPRETIVE INFORMATION:Midazolam, U Positive Cutoff: 20 ng/mL Methodology: Mass Spectrometry Morphine Urine Not Detected 04/30/2025 7:50 AM EDT [facility] Comment: (NOTE) INTERPRETIVE INFORMATION:Morphine, U Positive Cutoff: 20 ng/mL Methodology: Mass Spectrometry Norbuprenorphine, Urine Not Detected 04/30/2025 7:50 AM EDT [facility] Comment: (NOTE) INTERPRETIVE INFORMATION:Norbuprenorphine, U Positive Cutoff: 20 ng/mL Methodology: Mass Spectrometry Nordiazepam, Urine Not Detected 04/30/2025 7:50 AM EDT [facility] Comment: (NOTE) INTERPRETIVE INFORMATION:Nordiazepam, U Positive Cutoff: 50 ng/mL Methodology: Mass Spectrometry Norfentanyl, Urine Not Detected 04/30/2025 7:50 AM EDT [facility] Comment: (NOTE) INTERPRETIVE INFORMATION:Norfentanyl, U Positive Cutoff: 2 ng/mL Methodology: Mass Spectrometry Norhydrocodone, Urine Present 04/30/2025 7:50 AM EDT [facility] Comment: (NOTE) INTERPRETIVE INFORMATION:Norhydrocodone, U Positive Cutoff: 100 ng/mL Methodology: Mass Spectrometry Noroxycodone, Urine Not Detected 04/30/2025 7:50 AM EDT [facility] Comment: (NOTE) INTERPRETIVE INFORMATION:Noroxycodone, U Positive Cutoff: 100 ng/mL Methodology: Mass Spectrometry Noroxymorphone, Urine Not Detected 04/30/2025 7:50 AM EDT [facility] Comment: (NOTE) INTERPRETIVE INFORMATION:Noroxymorphone, U Positive Cutoff: 100 ng/mL Methodology: Mass Spectrometry Oxazepam, Urine Not Detected 04/30/2025 7:50 AM EDT [facility] Comment: (NOTE) INTERPRETIVE INFORMATION:Oxazepam, U Positive Cutoff: 50 ng/mL Methodology: Mass Spectrometry Oxycodone Urine Not Detected 04/30/2025 7:50 AM EDT [facility] Comment: (NOTE) INTERPRETIVE INFORMATION:Oxycodone, U Positive Cutoff: 40 ng/mL Methodology: Mass Spectrometry Oxymorphone, Urine Not Detected 04/30/2025 7:50 AM EDT [facility] Comment: (NOTE) INTERPRETIVE INFORMATION:Oxymorphone, U Positive Cutoff: 40 ng/mL Methodology: Mass Spectrometry Phencyclidine, Urine Negative 04/30/2025 7:50 AM EDT [facility] Comment: (NOTE) Presumptive negative by immunoassay. Testing by mass spectrometry is available on request. INTERPRETIVE INFORMATION:Phencyclidine Screen, U Positive Cutoff: 25 ng/mL Methodology: Immunoassay Phentermine, Ur Not Detected 04/30/2025 7:50 AM EDT [facility] Comment: (NOTE) INTERPRETIVE INFORMATION:Phentermine, U Positive Cutoff: 100 ng/mL Methodology: Mass Spectrometry Jpadyndkbe-B-Wecguo e, Urine Not Detected 04/30/2025 7:50 AM EDT [facility] Comment: (NOTE) INTERPRETIVE INFORMATION:Acnspbeyul-x-Dcur, U Positive Cutoff: 200 ng/mL Methodology: Mass Spectrometry Tapentadol, Urine Not Detected 04/30/2025 7:50 AM [facility] (NOTE) INTERPRETIVE INFORMATION:Tapentadol, U Positive Cutoff: 100 ng/mL Methodology: Mass Spectrometry Temazepam, Urine Not Detected 04/30/2025 7:50 AM [facility]: (NOTE) INTERPRETIVE INFORMATION:Temazepam, U Positive Cutoff: 50 ng/mL Methodology: Mass Spectrometry Tramadol, Urine Negative 7:50 AM [facility]: (NOTE) Presumptive negative by immunoassay. Testing by mass spectrometry is available on request. INTERPRETIVE INFORMATION:Tramadol Screen, U Positive Cutoff: 100 ng/mL Methodology: Immunoassay Zolpidem, Urine Not Detected 04/30/2025 7:50 AM [facility] Comment: (NOTE) INTERPRETIVE INFORMATION:Zolpidem, U Positive Cutoff: 20 ng/mL Methodology: Mass Spectrometry Drugs Expected, Ur .URINE 2024 7:50 AM [facility] Creatinine, Ur 62.5 20.0 - 400.0 mg/dL 04/30/2025 7:50 AM [facility] Pain Mgt Drug Panel, Hi Res, Ur See Below 04/30/2025 7:50 AM [facility] Comment: (NOTE) Methodology: Qualitative Enzyme Immunoassay and Qualitative Liquid Chromatography-Tandem Mass Spectrometry, Quantitative Spectrophotometry The absence of expected drug(s) and/or drug metabolite(s) may indicate non-compliance, inappropriate timing of specimen collection relative to drug administration, poor drug absorption, diluted/adulterated urine, or limitations of testing. The concentration must be greater than or equal to the cutoff to be reported as present. If specific drug concentrations are required, contact the laboratory within two weeks of specimen collection to request quantification by a second analytical technique. Interpretive questions should be directed to the laboratory. Results based on immunoassay detection that do not match clinical expectations should be interpreted with caution. Confirmatory testing by mass spectrometry for immunoassay-based results is available, if ordered within two weeks of specimen collection. Additional charges apply. For medical purposes only; not valid for forensic use. This test was developed and its performance characteristics determined by [facility]. It has not been cleared or approved by the [place] Food and Drug Administration. This test was performed in a CLIA certified laboratory and is intended for clinical purposes. EER Hi Res Interp Ur See Note 04/30/2025 7:50 AM EDT [facility] Comment: (NOTE) Authorized individuals can access the [employer] Enhanced Report with an [employer] Connect account using the following link. Your local lab can assist you in obtaining the patient report if you don't have a Connect account. [email or web address] Performed By: [facility] [address] [place] [id number] [employer] Cutting Machine Operator: Hans Jackson MD, PhD CLIA Number: [id number] Naloxone Urine Not Detected 04/30/2025 7:50 AM EDT [facility] Comment: (NOTE) INTERPRETIVE INFORMATION:Naloxone, U Positive Cutoff: 100 ng/mL Methodology: Mass Spectrometry Gabapentin Present 04/30/2025 7:50 AM EDT [facility] Comment: (NOTE) INTERPRETIVE INFORMATION:Gabapentin, U Positive Cutoff: 3,000 ng/mL Methodology: Mass Spectrometry Pregabalin Not Detected 04/30/2025 7:50 AM EDT [facility] Comment: (NOTE) INTERPRETIVE INFORMATION:Pregabalin, U Positive Cutoff: 3,000 ng/mL Methodology: Mass Spectrometry Iamqv-ET-Flvoyimxa, Urine Not Detected 04/30/2025 7:50 AM EDT [facility] Comment: (NOTE) INTERPRETIVE INFORMATION:Ohdve-JD-Aufqwiuzg, U Positive Cutoff: 20 ng/mL Methodology: Mass Spectrometry Zolpidem Metabolite (ZCA), Urine Not Detected 04/30/2025 7:50 AM EDT [facility] Comment: (NOTE) INTERPRETIVE INFORMATION:Zolpidem Metabolite, U Positive Cutoff: 100 ng/mL Methodology: Mass Spectrometry BLOOD SPECIMEN / Unknown 04/30/2025 7:50 AM EDT 04/30/2025 7:57 AM EDT us Arash Barrientos MD CHEMISTRY ORDERABLES Final Resul t [facility] [address] [place] [address], [facility] [phone] [facility] [address] [phone] * (ABNORMAL) Microscopic Urinalysis (04/30/2025 7:50 AM EDT) Only the most recent of2 resultswithin the time period is included. WBC, UA 0 TO 2 0 - 5 /HPF 04/30/2025 7:50 AM EDT [facility] RBC, UA 0 TO 2 0 - 2 /HPF 04/30/2025 7:50 AM EDT [facility] Epithelial Cells, UA 0 TO 2 0 - 25 /HPF 04/30/2025 7:50 AM EDT [facility] Bacteria, UA 1+(A) None 04/30/2025 7:50 AM EDT [facility] 04/30/2025 7:50 AM EDT 04/30/2025 7:57 AM EDT Arash Barrientos MD URINE ORDERABLES Final Result [facility] [address] [phone] * (ABNORMAL) Blood Gas, Venous (04/30/2025 6:40 AM EDT) Only the most recent of3 resultswithin the time period is included. pH, Vicente 7.326 7.32 - 7.42 04/30/2025 6:40 AM EDT [facility] pCO2, Vicente 52.6 39 - 55 mm Hg 04/30/2025 6:40 AM EDT [facility] PO2, Vicente 50.9(H) 30.0 - 50.0 mm Hg 04/30/2025 6:40 AM EDT [facility] HCO3, Venous 26.9 24.0 - 30.0 mmol/L 04/30/2025 6:40 AM EDT [facility] Negative Base Excess, Vicente 0.1 0.0 - 2.0 mmol/L 04/30/2025 6:40 AM EDT [facility] O2 Sat, Vicente 82.9 60.0 - 85.0 % 04/30/2025 6:40 AM EDT [facility] Pt Temp 37.0 04/30/2025 6:40 AM EDT [facility] pH, Vicente, Temp Adj 7.326 7.320 - 7.420 04/30/2025 6:40 AM EDT [facility] pCO2, Vicente, Temp Adj 52.6 39.0 - 55.0 mmHg 04/30/2025 6:40 AM EDT [facility] pO2, Vicente, Temp Adj 50.9(H) 30.0 - 50.0 mmHg 04/30/2025 6:40 AM EDT [facility] O2 Device/Flow/% BIPAP 04/30/2025 6:40 AM EDT [facility] Luis M Test NOT APPLICABLE 04/30/2025 6:40 AM EDT [facility] FIO2 45 04/30/2025 6:40 AM EDT [facility] 04/30/2025 6:40 AM EDT 04/30/2025 6:43 AM EDT us Champ Delatorre MD CHEMISTRY ORDERABLES Alba trevino Result [facility] [address] [phone] * XR CHEST PORTABLE (04/30/2025 6:27 AM EDT) Only the most recent of2 resultswithin the time period is included. Anatomical Region Laterality Modality Chest Computed Radiogr aphy 04/30/2025 8:06 AM EDT Impressions 04/30/2025 8:06 AM EDT Scattered pulmonary infiltrates. Narrative 04/30/2025 8:06 AM EDT EXAMINATION: ONE XRAY VIEW OF THE CHEST 04/30/2025 6:27 am COMPARISON: Chest radiograph performed 04/28/2025. HISTORY: ORDERING SYSTEM PROVIDED HISTORY: hypoxia TECHNOLOGIST PROVIDED HISTORY: hypoxia FINDINGS: There are scattered infiltrates. There is no pneumothorax. The mediastinal structures are unremarkable. The upper abdomen unremarkable. The extrathoracic soft tissues are unremarkable. Procedure Note Carlitos Cole MD - 04/30/2025 EXAMINATION: ONE XRAY VIEW OF THE CHEST 04/30/2025 6:27 am COMPARISON: Chest radiograph performed 04/28/2025. HISTORY: ORDERING SYSTEM PROVIDED HISTORY: hypoxia TECHNOLOGIST PROVIDED HISTORY: hypoxia FINDINGS: There are scattered infiltrates. There is no pneumothorax. Themediastinal structures are unremarkable. The upper abdomen unremarkable. The extrathoracic soft tissues are unremarkable. IMPRESSION: Scattered pulmonary infiltrates. us Arash Barrientos MD IMG DIAGNOSTIC IMAGING ORDERABLE S Final Result * (ABNORMAL) Brain Natriuretic Peptide (04/30/2025 4:55 AM EDT) Only the most recent of2 resultswithin the time period is included. NT Pro-BNP 1,192(H) 0 - 125 pg/mL 04/30/2025 4:55 AM EDT [facility] Blood BLOOD SPECIMEN / Unknown 04/30/2025 4:55 AM EDT 04/30/2025 6:42 AM EDT us Arash Barrientos MD CHEMISTRY ORDERABLES Final Resul t [facility] [address] [phone] * COVID-19, Rapid (04/28/2025 5:35 PM EDT) Specimen Description .NASOPHARYN GEAL SWAB 04/28/2025 5:35 PM EDT [facility] SARS-CoV-2, Rapid Not Detected Not Detected 04/28/2025 5:35 PM EDT [facility] Comment: Rapid NAAT: The specimen is NEGATIVE for SARS-CoV-2, the novel coronavirus associated with COVID-19. The ID NOW COVID-19 assay is designed to detect the virus that causes COVID-19 in patients with signs and symptoms of infection who are suspected of COVID-19. An individual without symptoms of COVID-19 and who is not shedding SARS-CoV-2 virus would expect to have a negative (not detected) result in this assay. Negative results should be treated as presumptive and, if inconsistent with clinical signs and symptoms or necessary for patient management, should be tested with an alternative molecular assay. Negative results do not preclude SARS-CoV-2 infection and should not be used as the sole basis for patient management decisions. Methodology: Isothermal Nucleic Acid Amplification NASOPHARYNGEAL SWAB / Unknown 04/28/2025 5:35 PM EDT 04/28/2025 5:38 PM EDT us Chioma Link MD MICROBIOLOGY - GENERAL ORDERABLE S Final Result [facility] [address] [phone] * (ABNORMAL) Respiratory Panel, Molecular, with COVID-19 (Restricted: peds pts or suitable admitted adults) (04/28/2025 5:35 PM EDT) Specimen Description .NASOPHARYN GEAL SWAB 04/28/2025 5:35 PM EDT [facility] Adenovirus PCR Not Detected Not Detected 04/28/2025 5:35 PM EDT [facility] Coronavirus 229E PCR Not Detected Not Detected 04/28/2025 5:35 PM EDT [facility] Coronavirus HKU1 PCR Not Detected Not Detected 04/28/2025 5:35 PM EDT [facility] Coronavirus NL63 PCR Not Detected Not Detected 04/28/2025 5:35 PM EDT [facility] Coronavirus OC43 PCR Not Detected Not Detected 04/28/2025 5:35 PM EDT [facility] SARS-CoV-2, PCR Not Detected Not Detected 04/28/2025 5:35 PM EDT [facility] Human Metapneumovirus PCR Not Detected Not Detected 04/28/2025 5:35 PM EDT [facility] Rhino/Enterovirus PCR Not Detected Not Detected 04/28/2025 5:35 PM EDT [facility] Influenza A by PCR Not Detected Not Detected 04/28/2025 5:35 PM EDT [facility] Influenza B by PCR Not Detected Not Detected 04/28/2025 5:35 PM EDT [facility] Parainfluenza 1 PCR Not Detected Not Detected 04/28/2025 5:35 PM EDT [facility] Parainfluenza 2 PCR Not Detected Not Detected 04/28/2025 5:35 PM EDT [facility] Parainfluenza 3 PCR DETECTED(A) Not Detected 04/28/2025 5:35 PM EDT [facility] Parainfluenza 4 PCR Not Detected Not Detected 04/28/2025 5:35 PM EDT [facility] Resp Syncytial Virus PCR Not Detected Not Detected 04/28/2025 5:35 PM EDT [facility] Bordetella parapertussis by PCR Not Detected Not Detected 04/28/2025 5:35 PM EDT [facility] B Pertussis by PCR Not Detected Not Detected 04/28/2025 5:35 PM EDT [facility] Chlamydia pneumoniae By PCR Not Detected Not Detected 04/28/2025 5:35 PM EDT [facility] Mycoplasma pneumo by PCR Not Detected Not Detected 04/28/2025 5:35 PM EDT [facility] Comment:Performed by multipl exed nucleic acid assay. Nasal swab NASOPHARYNGEAL SWAB / Unknown 04/28/2025 5:35 PM EDT 04/29/2025 4:21 AM EDT Evie Bustamante BRAND ENGINEER - FINGERPRINT TECHNICIAN MICROBIOLOGY - GENERAL ORDERABLES Final Result [facility] [address] [place] [address], [facility] [phone] [address], [facility] [phone] * Rapid influenza A/B antigens (04/28/2025 5:35 PM EDT) Flu A Antigen NEGATIVE NEGATIVE 04/28/2025 5:35 PM EDT [facility] Comment:for Influenza A Anti gen Flu B Antigen NEGATIVE NEGATIVE 04/28/2025 5:35 PM EDT [facility] Comment:for Influenza B Anti gen. NASOPHARYNGEAL SWAB / Unknown 04/28/2025 5:35 PM EDT 04/28/2025 5:37 PM EDT us Chioma Link MD MICROBIOLOGY - GENERAL ORDERABLE S Final Result Performing Organization Address City/[facility]/ZIP Co de Phone Number [facility] [address] [place] [id number], [facility] [phone] * D-Dimer, Quantitative (04/28/2025 5:25 PM EDT) D-Dimer, Quant 0.50 0.00 - 0.59 ug/mL FEU 04/28/2025 5:25 PM EDT [facility] Comment: When combined with a low clinical probability, a D dimer value of <0.50 ug/mL FEU is considered negative for DVT and PE (negative predictive value of 98%, sensitivity of 97%). If this test is not being used to help rule out DVT and PE, then the following reference range should be utilized: 0.00 - 0.59 ug/mL FEU. The D-Dimer assay is intended for use as an aid in the diagnosis of venous thromboembolism (DVT and PE) and the results should be interpreted in conjunction with the patient's medical history, clinical presentation, and other findings. Elevated levels of D-dimer activity can be seen in any state of coagulation activation and is not recommended in patients with therapeutic dose anticoagulant therapy for >24 hours, fibrinolytic therapy within the previous 7 days, trauma or surgery within the previous 4 weeks, disseminated malignancies, aortic aneurysm, sepsis, severe infections, pneumonia, severe skin infections, liver cirrhosis, advanced age, coronary disease, diabetes, and . A very low percentage of patients with DVT may yield D-dimer results below the cutoff of 0.5 ug/mL FEU. This is known to be more prevalent in patients with distal DVT. 04/28/2025 5:25 PM EDT 04/28/2025 5:36 PM EDT us Chioma Link MD HEMATOLOGY ORDERABLES Final Resu lt Performing Organization Address City/[facility]/ZIP Co de Phone Number [facility] [address] [phone] * (ABNORMAL) Hepatic Function Panel (04/28/2025 5:17 PM EDT) [facility] Albumin 4.3 3.5 - 5.2 g/dL 04/28/2025 5:17 PM EDT [facility] Alkaline Phosphatase 110(H) 35 - 104 U/L 04/28/2025 5:17 PM EDT [facility] ALT 18 10 - 35 U/L 04/28/2025 5:17 PM EDT [facility] AST 26 10 - 35 U/L 04/28/2025 5:17 PM EDT [facility] Total Bilirubin 0.3 0.00 - 1.20 mg/dL 04/28/2025 5:17 PM EDT [facility] Bilirubin, Direct <0.2 0.00 - 0.30 mg/dL 04/28/2025 5:17 PM EDT [facility] Bilirubin, Indirect Can not be calculated 0.0 - 1.0 mg/dL 04/28/2025 5:17 PM EDT [facility] Total Protein 7.5 6.6 - 8.7 g/dL 04/28/2025 5:17 PM EDT [facility] Albumin/Globuli n Ratio 1.4 1.0 - 2.5 04/28/2025 5:17 PM EDT [facility] Blood BLOOD SPECIMEN / Unknown 04/28/2025 5:17 PM EDT 04/28/2025 5:27 PM EDT us Chioma Link MD CHEMISTRY ORDERABLES Final Resul t [facility] [address] [phone] * Troponin (04/28/2025 5:15 PM EDT) [facility] Troponin, High Sensitivity 9 0 - 14 ng/L 04/28/2025 5:15 PM EDT [facility] Comment:High Sensitivity Tro ponin values cannot be compared with other Troponin methodologies. Blood BLOOD SPECIMEN / Unknown 04/28/2025 5:15 PM EDT 04/28/2025 5:25 PM EDT us Chioma Link MD CHEMISTRY ORDERABLES Final Resul t [facility] [address] [phone] * (ABNORMAL) Basic Metabolic Panel (04/28/2025 5:15 PM EDT) Sodium 141 136 - 145 mmol/L 04/28/2025 5:15 PM EDT [facility] Potassium 4.6 3.7 - 5.3 mmol/L 04/28/2025 5:15 PM T [facility] Chloride 105 98 - 107 mmol/L 04/28/2025 5:15 PM EDT [facility] CO2 26 20 - 31 mmol/L 04/28/2025 5:15 PM T [facility] Anion Gap 10 9 - 16 mmol/L 04/28/2025 5:15 PM T [facility] Glucose 84 74 - 99 mg/dL 04/28/2025 5:15 PM [facility] BUN 19 8 - 23 mg/dL 04/28/2025 5:15 PM T [facility] Creatinine 1.0(H) 0.50 - 0.90 mg/dL 04/28/2025 5:15 PM T [facility] Est, Glom Filt Rate 64 >60 mL/min/1.7 3m2 04/28/2025 5:15 PM T [facility] Comment: These results are not intended for use in patients <18 years of age. eGFR results are calculated without a race factor using the 2020 CKD-EPI equation. Careful clinical correlation is recommended, particularly when comparing to results calculated using previous equations. The CKD-EPI equation is less accurate in patients with extremes of muscle mass, extra-renal metabolism of creatine, excessive creatine ingestion, or following therapy that affects renal tubular secretion. BUN/Creatinine Ratio 19 9 - 20 04/28/2025 5:15 PM EDT [facility] Calcium 9.2 8.6 - 10.4 mg/dL 04/28/2025 5:15 PM EDT [facility] Blood BLOOD SPECIMEN / Unknown 04/28/2025 5:15 PM EDT 04/28/2025 5:25 PM EDT Chioma Link MD CHEMISTRY ORDERABLES Final Resul t Performing Organization Address [facility]/ZIP Co de Phone Number [facility] [address] [place] [address] * (ABNORMAL) Iron and TIBC (03/07/2025 7:50 AM EDT) Iron 33(L) 37 - 145 ug/dL 03/07/2025 7:50 AM EDT [facility] TIBC 423 250 - 450 ug/dL 03/07/2025 7:50 AM EDT [facility] Iron % Saturation 8(L) 20 - 55 % 03/07/2025 7:50 AM EDT [facility] UIBC 390(H) 112 - 347 ug/dL 03/07/2025 7:50 AM EDT [facility] 03/07/2025 7:50 AM EDT 03/07/2025 8:22 AM EDT Alf Patterson APRN - FINGERPRINT TECHNICIAN CHEMISTRY ORDERABLES Fi nal Result Performing Organization Address [facility]/ZIP Co de Phone Number [facility] [address] [place], [place] [id number] [place] [address] [facility] [address] [place] [address] * (ABNORMAL) Urinalysis (03/07/2025 7:50 AM EDT) Color, UA Yellow Yellow 03/07/2025 7:50 AM EDT [facility] Turbidity UA Clear Clear 03/07/2025 7:50 AM T [facility] Glucose, Ur NEGATIVE NEGATIVE mg/dL 03/07/2025 7:50 AM [facility] Bilirubin, Urine NEGATIVE NEGATIVE 03/07/2025 7:50 AM [facility] Ketones, Urine NEGATIVE NEGATIVE mg/dL 03/07/2025 7:50 AM [facility] Specific [place], UA 1.010 1.010 - 1.020 03/07/2025 7:50 AM [facility] Urine Hgb NEGATIVE NEGATIVE 03/07/2025 7:50 AM [facility] pH, Urine 6.0 5.0 - 9.0 03/07/2025 7:50 AM [facility] Protein, UA NEGATIVE NEGATIVE mg/dL 03/07/2025 7:50 AM [facility] Urobilinogen, Urine Normal 0.0 - 1.0 EU/dL 03/07/2025 7:50 AM [facility] Nitrite, Urine NEGATIVE NEGATIVE 03/07/2025 7:50 AM [facility] Leukocyte Esterase, Urine SMALL(A) NEGATIVE 03/07/2025 7:50 AM [facility] 03/07/2025 7:50 AM EDT 03/07/2025 8:22 AM EDT Alf Patterson BRAND ENGINEER - FINGERPRINT TECHNICIAN URINE ORDERABLES Final Result [facility] [address] [phone] * APTT (03/07/2025 7:50 AM EDT) APTT 27.0 26.8 - 34.8 sec 03/07/2025 7:50 AM T [facility] Comment: IV Heparin Therapy Range: 62.0-94.0 03/07/2025 7:50 AM EDT 03/07/2025 8:22 AM EDT Alf Patterson BRAND ENGINEER - FINGERPRINT TECHNICIAN HEMATOLOGY ORDERABLES F inal Result Performing Organization Address [facility] Co de Phone Number [facility] [address] [place] [address] * (ABNORMAL) Protime-INR (03/07/2025 7:50 AM EDT) Protime 11.3(L) 11.7 - 14.1 sec 03/07/2025 7:50 AM EDT [facility] INR 0.8 03/07/2025 7:50 AM EDT [facility] Comment: Therapeutic Range: Moderate Anticoagulant Intensity: INR = 2.0-3.0 High Anticoagulant Intensity: INR = 2.5-3.5 03/07/2025 7:50 AM EDT 03/07/2025 8:22 AM EDT Alf Patterson APRN - FINGERPRINT TECHNICIAN HEMATOLOGY ORDERABLES F inal Result Performing Organization Address [facility] Co de Phone Number [facility] [address] [place] [address] * (ABNORMAL) CBC (03/07/2025 7:50 AM EDT) WBC 9.9 3.5 - 11.3 k/uL 03/07/2025 7:50 AM EDT [facility] RBC 3.66(L) 3.95 - 5.11 m/uL 03/07/2025 7:50 AM EDT [facility] Hemoglobin 9.6(L) 11.9 - 15.1 g/dL 03/07/2025 7:50 AM EDT [facility] Hematocrit 30.9(L) 36.3 - 47.1 % 03/07/2025 7:50 AM EDT [facility] MCV 84.4 82.6 - 102.9 fL 03/07/2025 7:50 AM EDT [facility] MCH 26.2 25.2 - 33.5 pg 03/07/2025 7:50 AM EDT [facility] MCHC 31.1 28.4 - 34.8 g/dL 03/07/2025 7:50 AM EDT [facility] RDW 15.8(H) 11.8 - 14.4 % 03/07/2025 7:50 AM EDT [facility] Platelets 322 138 - 453 k/uL 03/07/2025 7:50 AM EDT [facility] MPV 11.1 8.1 - 13.5 fL 03/07/2025 7:50 AM EDT [facility] NRBC Automated 0.0 0.0 per 100 WBC 03/07/2025 7:50 AM EDT [facility] 03/07/2025 7:50 AM EDT 03/07/2025 8:22 AM EDT us Alf Patterson APRN - FINGERPRINT TECHNICIAN HEMATOLOGY ORDERABLES F inal Result [facility] [address] [place] [address] * (ABNORMAL) Hemoglobin A1C (03/07/2025 7:50 AM EDT) Hemoglobin A1C 6.4(H) 4.0 - 6.0 % 03/07/2025 7:50 AM EDT [facility] Estimated Avg Glucose 137 mg/dL 03/07/2025 7:50 AM EDT [facility] Comment: The ADA and AACC recommend providing the estimated average glucose result to permit better patient understanding of their HBA1c result. 03/07/2025 7:50 AM EDT 03/07/2025 8:22 AM EDT Alf Patterson BRAND ENGINEER - FINGERPRINT TECHNICIAN CHEMISTRY ORDERABLES Fi nal Result [facility] [address] [place] [address], [facility] [phone] [facility] [address] [place] [address], [facility] [phone] * Ferritin (03/07/2025 7:50 AM EDT) Pathologist [facility] Ferritin 12 ng/mL 03/07/2025 7:50 AM EDT [facility] Comment:No reference range e stablished for this age/gender. 03/07/2025 7:50 AM EDT 03/07/2025 8:22 AM EDT Alf Patterson BRAND ENGINEER - FINGERPRINT TECHNICIAN CHEMISTRY ORDERABLES Fi nal Result [facility] [address] [place] [address], [facility] [phone] [place] [address], [facility] [phone] * (ABNORMAL) Comprehensive Metabolic Panel (03/07/2025 7:50 AM EDT) [facility] Sodium 137 136 - 145 mmol/L 03/07/2025 7:50 AM T [facility] Potassium 4.6 3.7 - 5.3 mmol/L 03/07/2025 7:50 AM [facility] Chloride 103 98 - 107 mmol/L 03/07/2025 7:50 AM [facility] CO2 24 20 - 31 mmol/L 03/07/2025 7:50 AM T [facility] Anion Gap 10 9 - 16 mmol/L 03/07/2025 7:50 AM [facility] Glucose 182(H) 74 - 99 mg/dL 03/07/2025 7:50 AM [facility] BUN 24(H) 8 - 23 mg/dL 03/07/2025 7:50 AM [facility] Creatinine 1.1(H) 0.50 - 0.90 mg/dL 03/07/2025 7:50 AM [facility] Est, Glom Filt Rate 59(L) >60 mL/min/1.7 3m2 03/07/2025 7:50 AM T [facility] Comment: These results are not intended for use in patients <18 years of age. eGFR results are calculated without a race factor using the 2020 CKD-EPI equation. Careful clinical correlation is recommended, particularly when comparing to results calculated using previous equations. The CKD-EPI equation is less accurate in patients with extremes of muscle mass, extra-renal metabolism of creatine, excessive creatine ingestion, or following therapy that affects renal tubular secretion. BUN/Creatinine Ratio 22(H) 9 - 20 03/07/2025 7:50 AM T [facility] Calcium 9.7 8.6 - 10.4 mg/dL 03/07/2025 7:50 AM [facility] Total Protein 7.2 6.6 - 8.7 g/dL 03/07/2025 7:50 AM [facility] Albumin 4.2 3.5 - 5.2 g/dL 03/07/2025 7:50 AM [facility] Albumin/Globulin Ratio 1.4 1.0 - 2.5 03/07/2025 7:50 AM [facility] Total Bilirubin <0.2 0.00 - 1.20 mg/dL 03/07/2025 7:50 AM [facility] Alkaline Phosphatase 103 35 - 104 U/L 03/07/2025 7:50 AM [facility] ALT 14 10 - 35 U/L 03/07/2025 7:50 AM [facility] AST 23 10 - 35 U/L 03/07/2025 7:50 AM [facility] 03/07/2025 7:50 AM EDT 03/07/2025 8:22 AM EDT us Alf Patterson BRAND ENGINEER - FINGERPRINT TECHNICIAN CHEMISTRY ORDERABLES Fi nal Result [facility] [address] [place], [place] [address] [phone] from Last 3 Months Insurance [employer] Advance Directives Documents on File Type Date Recorded 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 DNR Form 04/29/25 ACP-Do Not Resuscitate 04/29/2025 2:44 PM D NR-CCA * DNR-CCA (Latest Code Status on File) Date Activated Date Inactivated Comments 04/29/2025 12:10 PM 05/02/2025 8:49 PM * Full Code Date Activated Date Inactivated Comments 04/28/2025 8:45 PM 04/29/2025 12:10 PM Healthcare Agents on File Name Relationship Healthcare Agent Relationshi p Communication Osvaldo Patrick Child Primary Decision Maker Care Teams Tone Artist Apprentice Relationship Specialty Start Date End Date Argelia Bocanegra MD PCP - General 01/12/21
--- OUTSIDE RECORDS SUMMARY | 2025-05-26 08:29 | XMS_ITS | Patient Health Record ---
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 Name Role Phone Talon Hair Primary Care Provider [phone] Fidelia Jones Unavailable [phone] Herminia Medeiros Unavailable [phone] Allergies Allergen (clinical drug ingredient) Drug/Non Drug Allergy documented on EMR Reaction Allergy Type Onset Date Status IV dye (uncoded) anaphylaxis Allergy A ctive rifampton (uncoded) hives Allergy Active Shellfish (FN) shellfish (uncoded) hives Allergy Active some steroids (uncoded) anaphylaxis Allergy Active isoniazid Isoniazid anaphylaxis Drug Allergy Activ e Darvocet N-100 # 30 anaphylaxis Drug Allergy Active ASA rash Drug Allergy Active Substance with sulfonamide structure and antibacterial mechanism of action (substance) Sulfa (uncoded) anaphylaxis Allergy Active PCN (uncoded) anaphylaxis Allergy Acti ve tramadol Ultram anaphylaxis Drug Allergy Activ e lisinopril Lisinopril anaphylaxis Drug Allergy Act dhara rizatriptan Rizatriptan hives Drug Allergy Act dhara Results Component Value Reference Range Notes Urine Culture Reviewed date:08/30/2024 01:17:09 PM Interpretation: Performing Lab:, [facility], [address] [place] Notes/Report: Reason for Exam Acute cystitis without hematuria Urine Urinalysis automated Reviewed date:08/27/2024 11:46:46 AM Interpretation:Normal Performing Lab: Notes/Report: Normal Urine-Color yellow Appearance clear Specific Elliott 1.010 pH 6.0 Glucose NEG Protein NEG Occult Blood NEG Bilirubin NEG Urobilinogen,Semi-Qn 3.5 (NEG) Nitrite, Urine NEG Ketones NEG WBC Esterase NEG Hemoglobin A1c Reviewed date:06/14/2024 10:11:19 AM Interpretation:6.0 Performing Lab: Notes/Report: 6.0 Hemoglobin A1c 6.0 5 - 7.9 % Hemoglobin A1c Reviewed date:01/18/2025 09:36:20 AM Interpretation: Performing Lab: Notes/Report: Hemoglobin A1c 6.3% 5 - 7.9 % Dipstick and Microscopic Reviewed date:08/28/2024 11:17:57 AM Interpretation:+ LE Performing Lab:, [facility], [address] [place] Notes/Report: Reason for Exam Acute cystitis without hematuria Name Collection Type:: Voided Color,Urine Light-Yellow Yellow Appearance,Urine Clear Clear Specificy Elliott,Urine 1.009 1.001-1.030 pH,Urine 6.5 5.0-9.0 Leukocyte Esterase,Urine 2+ Negative Nitrite,Urine Negative Negative Protein,Urine Negative Negative Glucose,Urine (UA) Normal Normal Ketones,Urine Negative Negative Urobilinogen,Urine Normal Normal Bilirubin,Urine Negative Negative Occult Blood,Urine Negative Negative RBC,Urine 1-2 0-4 WBC,Urine 3-4 0-4 Squamous Epithelial Cell,Urine 3-4 0-2 Bacteria,Urine Rare None Seen Hyaline Casts,Urine None 0-8 Urinalysis automated Reviewed date:12/20/2024 10:44:16 AM Interpretation: Performing Lab: Notes/Report: Urine-Color YELLOW Appearance CLEAR Specific Elliott 1.010 pH 6.0 Glucose NEG Protein NEG Occult Blood NEG Bilirubin NEG Urobilinogen,Semi-Qn 3.5 Nitrite, Urine NEG Ketones NEG WBC Esterase 2+ Urine Drug Screen Reviewed date:12/20/2024 10:46:00 AM Interpretation: Performing Lab: Notes/Report: pH NEG SG NEG Create NEG THC NEG TRENT NEG AMP NEG OPI NEG MAMP NEG PCP NEG BAR NEG BZO NEG MTO NEG MDMA NEG OXY NEG BUP NEG Hemoglobin A1c Reviewed date:09/14/2024 03:32:05 PM Interpretation:6.1% Performing Lab: Notes/Report: 6.1% Hemoglobin A1c 6.1% 5 - 7.9 % Reason For Referral Reason SCHEDULED 07/14 *FU 06/22 Pt needs pain specialist for chronic pain and pain from surgeries in the past. Prefers NOMS. Diagnosis 1 Other chronic postpr ocedural pain (G89.28) Referral Organization [facility] Referring Provider First Name Hair Referring Provider Last Name [facility] [place] Referring Provider [facility] ctice Referred Provider Sohan Martinez Referred Provider Specialty Pain Medicin e General Notes Sky Zunigamynor 024 06:39:26 PM >Norma/SMITA Martinez [phone] F: [phone] Referral Priority Routine Reason 09/22 CURT referra l for elective cholecystectomy. Diagnosis 1 Symptomatic cholelit hiasis (K80.20) Referral Organization [facility] Referring Provider First Name Hair Referring Provider Last Name [place] Referring Provider [facility] ctice Referred Provider DOYLE HEATH Referred Provider Specialty General Surg alysa Referral Priority Routine Reason NEW REFERRAL PLACED Pt would like a different pain management. She is displeased with her treatment at her current one. Diagnosis 1 Lumbago with sciatic a, right side (M54.41) Referral Organization [facility] Referring Provider First Name Hair Referring Provider Last Name [place] Referring Provider [facility] ctice Referred Provider EMRE PAIN, MANAG EMENT Referred Provider Specialty Pain Medicin e General Notes Kellie Nila 2024 08:06:38 AM >PT WAS D/C FROM [facility] Referral Priority Routine Reason PT N/S APPT DO NOT SEND TO DR GUTIERRES!!!! She would like to see pain management in [place]. Diagnosis 1 Neuropathic pain (M7 9.2) Referral Organization [facility] Referring Provider First Name Hair Referring Provider Last Name [facility] [place] Referring Provider [facility] ctice Referred Provider ELEUTERIO [facility] [place] Referred Provider Specialty Pain Medicin e Referral Priority Routine Medications Medication SIG (Take, Route, Frequency, Duration) Notes Start Date End Date Status Melatonin 3 MG 1 tablet at bedtime as needed Orally Once a day; Duration: 30 days 11/06/2023 Active hydrOXYzine Pamoate 50 MG 1 capsule at bedtime as needed Orally every eight hours; Duration: 90 days As needed for anxiety attacks 09/14/2024 Active DULoxetine HCl 40 MG take 1 capsule by m outh twice a day Orally Once a day; Duration: 30 days Active Gabapentin 600 MG 1 tablet Orally Once a day; Duration: 30 day(s) 03/15/2025 Active EPINEPHrine 0.3 MG/0.3ML as directed Inj ection once; Duration: 30 days PRN Active test strips Freestyle Lite as directed e xternally twice a day; Duration: 90 days 06/23/2014 10/30/2025 Active Atorvastatin Calcium 80 MG 1 tablet Oral ly Once a day; Duration: 90 days Active Glucometer - place 1 drop of bloo d externally TID 12/07/2021 Active OneTouch Delica Plus [id number] - USE 1 LANCET TO TEST BLOOD SUGAR three times a day; Duration: 33 Active OneTouch Ultra - use 1 TEST STRIP to TEST BLOOD SUGAR three times a day and if needed; Duration: 90 days Active Lancets - as directed fingerti p three times a day; Duration: 30 days E11.9 Active Fluticasone Propionate 50 MCG/ACT instill 1 spray into each nostril twice a day if needed Nasally twice a day; Duration: 90 days PRN Active Losartan Potassium 50 MG 1 tablet Orally Once a day; Duration: 90 days Active Propranolol HCl ER 160 MG take 1 capsule by mouth once daily 30 Orally Once a day; Duration: 90 days Active metFORMIN HCl ER 500 MG 1 tablet with ev ening meal Orally twice a day; Duration: 30 days Active Symbicort 80-4.5 MCG/ACT 2 puffs Inhalat ion Once a day; Duration: 30 days 11/06/2023 03/10/2026 Active Nystatin 414784 UNIT/GM 1 application Ex ternally Twice a day; Duration: 30 days Active Omeprazole 40 MG take 1 capsule by [facility] once daily; Duration: 30 Active Promethazine HCl 12.5 MG 1 tablet as nee ded Orally every 6 hrs; Duration: 30 day(s) Active amLODIPine Besylate 10 MG take 1 tablet by mouth once daily Orally Once a day; Duration: 30 days Active RA Alcohol Swabs 70 % use as directed da beverly TO CHECK SUGARS 30; Duration: 30 days Active Immunizations Vaccine Route Administration Date Status Comme nts Influenza 3+ PRIVATE IM Intramuscular 08/30/2021 Administered MODERNA IM Intramuscular 12/07/2021 Administered xxxDO NOT USExxx Influenza Adult (FLUCELVAX - SINGLE USE) IM Intramuscular 10/23/2017 Administered Encouraged maxim ent to wait x 20 min. after vaccine administration to observe pt. for s/sx of adverse reaction;declined to do so. xxxDO NOT USExxx Influenza Adult (FLUCELVAX - SINGLE USE) Unknown 07/10/2018 Administered PNEUMOVAX 23 given at [facility]. AFLURIA QUAD given at [facility]. xxxxDO NOT USE-Pneumovax 23 Unknown 07/10/2018 Administered PNEUMOVAX 23 giv en at [facility]. Social History Tobacco Use: Social History Observation Description Date Details (start date - stop date) Current Smoker NA - NA PRAPARE Question Answer Notes Date Completed/Updated: 12/20/2024 What is your current housing situation? I have h ousing Are you worried about losing your housing? No What is the highest level of school that you have finished? High school diploma or GED What is your current work situation? Oth erwise unemployed but not seeking work (ex. 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 Check all that apply I do not have problems meeting my needs Has lack of transportation k ept you from medical appointments, meetings, work or from getting things needed for daily living? Yes, it has kept me from medical appointments or from getting my medications How often do you see or talk to people that you care about and feel close to? (For example: talking to friends on the phone, visiting friends or family, going to taoism or club meetings) Less than once a week How stressed are you? Stress is when someone feels tense, nervous, anxious, or cant sleep at night because their mind is troubled Not at all In the past year have you sp ent more than 2 nights in a row in a nursing home, halfway, fdc center, or juvenile correctional facility? No Are you a refugee? No What country are you from? [place] Do you feel physically and e motionally safe where you currently live? Yes In the past year, have you b een afraid of your partner or ex-partner? No PRAPARE Score: 6 AUDIT-C (Standard) Question Answer Notes Did you have a drink contain ing alcohol in the past year? Yes How often did you have a dri nk containing alcohol in the past year? Monthly or less (1 point) How many drinks did you have on a typical day when you were drinking in the past year? 1 or 2 drinks (0 point) How often did you have six o r more drinks on one occasion in the past year? Less than monthly (1 point) Points 2 Interpretation Negative Tobacco Control (Standard) Question Answer Notes Tobacco use: Current smoker How often do you smoke cigarettes? Every day How many cigarettes a day do you smoke? 11-20 How soon after you wake up do you smoke your fir st cigarette? 31-60 minutes Are you interested in quitting? Not ready to ree t Section Notes: smokes 1/3 ppd x 10 years, n o ETOH, no street drugs. smokes 1/3 ppd x 10 years, n o ETOH, no street drugs. smokes 1/3 ppd x 10 years, n o ETOH, no street drugs. smokes 1/3 ppd x 10 years, n o ETOH, no street drugs. smokes 1/3 ppd x 10 years, n o ETOH, no street drugs. 11/30/15: Pt smokes <1/3 ppd. Drinks ETOH socially and denies IDU. 02/29/16: Smokes 2 cigarettes per days, drinks etoh socially and denies IDU. (Drug screen positive for cocaine) 11/30/15: Pt smokes <1/3 ppd. Drinks ETOH socially and denies IDU. 02/29/16: Smokes 2 cigarettes per days, drinks etoh socially and denies IDU. (Drug screen positive for cocaine) 11/30/15: Pt smokes <1/3 ppd. Drinks ETOH socially and denies IDU. smokes 1/3 ppd x 10 years, n o ETOH, no street drugs. 11/30/15: Pt smokes <1/3 ppd. Drinks ETOH socially and denies IDU. 11/30/15: Pt smokes <1/3 ppd. Drinks ETOH socially and denies IDU. 11/30/15: Pt smokes <1/3 ppd. Drinks ETOH socially and denies IDU. smokes 1/3 ppd x 10 years, n o ETOH, no street drugs. 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) Type 2 diabetes mellitus with unspecified complications (E11.8) Active confirmed Problem Morbid obesity (disorder) (679667563) Morbid (severe) obesity due to excess calories (E66.01) Active confirmed Problem Hypercalcemia (07513890) Hypercalcemia (E83.52) Active confirmed Problem Tobacco user (951059197) Nicotine dependence, unspecified, uncomplicated (F17.200) Active confirmed Problem Chronic postoperative pain (037142767479630) Other chronic postprocedural pain (G89.28) Active confirmed Problem Chronic pain (57349546) Other chronic pain (G89.29) Active confirmed Problem Essential hypertension (33476346) Essential (primary) hypertension (I10) Active confirmed Problem Sciatica (25357215) Lumbago with sciatica, right side (M54.41) Active confirmed Problem Sciatica (57628095) Lumbago with sciatica, left side (M54.42) Active confirmed Problem Low back pain (860434449) Low back pain (M54.5) Active confirmed Problem Hyperlipidemia (25438088) Hyperlipidemia (E78.5) Active confirmed Problem Anxiety (62202684) Anxiety (F41.9) Active confi rmed Problem Asthma (332065444) Asthma (J45.909) Active conf irmed Problem Neuropathy (429981361) Neuropathy (G62.9) Active confirmed Problem Urinary frequency (817647705) Urinary frequency (R35.0) Active confirmed Problem Chronic pain (45098351) Other chronic pain (G89.29) Active confirmed Problem Chronic sinusitis (26166550) Sinusitis, unspecified chronicity, unspecified location (J32.9) Active confirmed Problem Migraine (97835735) Migraine wit hout status migrainosus, not intractable, unspecified migraine type (G43.909) Active confirmed Problem Gastroesophageal reflux disease (442232420) Gastroesophageal reflux disease, esophagitis presence not specified (K21.9) Active confirmed Problem Insomnia (433774731) Insomnia, unspecified type (G47.00) Active confirmed Problem Infection of tooth (disorder) (343421194) Tooth infection (K04.7) Active confirmed Problem Xerostomia (83675863) Xerostomia (K11.7) Active confirmed Problem Difficulty walking (012163359) Difficulty walking (R26.2) Active confirmed Problem Chronic sinusitis (51337648) Chronic sinusitis, unspecified location (J32.9) Active confirmed Problem Sciatica (05420928) Sciatica of right side (M54.31) Active confirmed Problem Chronic idiopathic constipation (16840723) Chronic idiopathic constipation (K59.04) Active confirmed Problem Callous ulcer (morphologic abnormality) (082501370) Callous ulcer, limited to breakdown of skin (L98.491) Active confirmed Problem Mixed bipolar affective disorder, moderate (555598590) Bipolar 1 disorder, mixed, moderate (F31.62) Active confirmed Problem Major depression, single episode (93622789) Major depressive episode (F32.9) Active confirmed Problem Bipolar 2 disorder (22123115) Bipolar 2 disorder (F31.81) Active confirmed Problem Hypercalcemia (82459828) Serum calcium elevated (E83.52) Active confirmed Problem Stenosis of left carotid artery (533216842081081) Stenosis of left carotid artery (I65.22) Active confirmed Problem Type II diabetes mellitus without complication (895471624) Type 2 diabetes mellitus without complication, unspecified whether snf insulin use (E11.9) Active confirmed Problem Alcohol abuse (74612859) Alcohol use disorder, mild, abuse (F10.10) Active confirmed Problem Atherosclerosis of both carotid arteries (940787321717322) Atherosclerosis of both carotid arteries (I65.23) Active confirmed Problem Gait difficulty (27611431) Gait difficulty (R26.9) Active confirmed Problem Persistent depressive disorder (1147202389) Persistent depressive disorder (F34.1) Active confirmed Problem Body mass index 40+ - severely obese (418498655) Body mass index [BMI] 40.0-44.9, adult (Z68.41) Active confirmed Problem Cholelithiasis without obstruction (63651177) Symptomatic cholelithiasis (K80.20) Active confirmed Vital Signs Heart Rate 65 /min 03/15/2025 Temperature 98.1 degrees Fahrenheit 01/18/2025 Respiratory Rate 20 /min 03/15/2025 Oximetry 98 % 03/15/2025 Blood pressure diastolic 88 mm Hg 03/15/2025 Height 59 in 03/15/2025 Blood pressure systolic 154 mm Hg 03/15/2025 Weight 211 lbs 03/15/2025 BMI 42.61 kg/m2 03/15/2025 Encounters Encounter Location Date Provider Diagnosis [facility] [address] [place] [address] 06/01/2024 [facility] [address] [place] [address] 06/17/2024 Reginaldo Hanley Viral URI J06.9 ; Anxiety F41.9 ; Type 2 diabetes mellitus with unspecified complications E11.8 ; Insomnia, unspecified type G47.00 ; Chronic idiopathic constipation K59.04 and Asthma J45.909 [facility] [address] [place] [address] 06/23/2024 [place] [address] [place] [address] 06/24/2024 [facility] [address] [place] [address] 07/07/2024 [place] [address] [place] [address] 07/20/2024 [place] [address] [place] [address] 07/30/2024 Hair Talon Anxiety F41.9 [facility] [address] [place] [address] 08/03/2024 [place] [address] [place] [address] 08/17/2024 Hair Talon Intertriginous candidiasis B37.2 and Type 2 diabetes mellitus with unspecified complications E11.8 [facility] [address] [place] [address] 08/18/2024 Hair Paulajamaal Head lice B85.0 [facility] [address] [place] [address] 08/23/2024 [facility] [address] [place] [address] 08/27/2024 Reginaldo Hanley Symptomatic cholelithiasis K80.20 [facility] [address] [place] [address] 09/03/2024 Reginaldo Hanley Nausea and vomiting, unspecified vomiting type R11.2 [facility] [address] [place] [address] 09/09/2024 [facility] [address] [place] [address] 09/27/2024 [facility] Nausea and vomiting, unspecified vomiting type R11.2 [facility] [place] [address] 10/12/2024 [facility] Anxiety F41.9 [facility] [place] [address] 10/20/2024 [facility] [place] [address] 10/28/2024 [facility] [place] Nausea and vomiting, unspecified vomiting type R11.2 [facility] [place] [address] 10/29/[address] [place] [address] [place] [address] 11/04/2024 [facility] Low back pain M54.5 [facility] [address] [place] [address] 11/16/2024 [place] [address] [place] [address] 11/18/[address] [place] [address] [place] [address] 12/03/[address] [place] [address] [place] [address] 12/13/2024 [facility] [address] [place] [address] 01/03/2025 [facility] [address] [place] [address] 01/24/2025 [facility] Obesity, class [address] [place] [address] 01/24/[address] [place] [address] [place] [address] 01/27/2025 [place] [address] [place] [address] 01/31/2025 [place] [address] [place] [address] 02/01/2025 [place] [address] [place] [address] 03/15/2025 Reginaldo Hanley Insomnia, unspecifie d type G47.00 and Anxiety F41.9 [facility] [address] [place] [address] 03/15/2025 Reginaldo Hanley Anxiety F41.9 [facility] [address] [place] [address] 04/05/2025 Reginaldo Hanley Intertriginous candidiasis B37.2 [place] [address] [place] [address] 06/14/2024 Reginaldo Hanley Nicotine dependence, unspecified, uncomplicated F17.200 ; Type 2 diabetes mellitus with unspecified complications E11.8 ; Difficulty walking R26.2 ; Hyperlipidemia E78.5 ; Asthma J45.909 ; Essential (primary) hypertension I10 ; Chronic idiopathic constipation K59.04 and Other chronic postprocedural pain G89.28 [place] [address] [place] [address] 08/16/2024 Reginaldo Hanley Nausea and vomiting, unspecified vomiting type R11.2 ; Diarrhea of presumed infectious origin R19.7 ; Head lice B85.0 ; Dehydration E86.0 and Right upper quadrant abdominal pain R10.11 [facility] [address] [place] [address] 08/27/2024 Reginaldo Hanley Symptomatic cholelithiasis K80.20 ; Head lice B85.0 ; Acute cystitis without hematuria N30.00 ; Difficulty walking R26.2 and Gait difficulty R26.9 [facility] [address] 09/14/2024 Reginaldo Hanley Anxiety F41.9 ; Intertriginous candidiasis B37.2 ; Chest congestion R09.89 ; Head lice B85.0 ; Nausea and vomiting, unspecified vomiting type R11.2 ; Essential (primary) hypertension I10 and Type 2 diabetes mellitus with unspecified complications E11.8 [facility] [address] [place] [address] 11/04/2024 Reginaldo Hanley Type 2 diabetes mellitus with unspecified complications E11.8 ; Pain management contract signed Z02.89 ; Intertriginous candidiasis B37.2 ; Anxiety F41.9 ; Sciatica of right side M54.31 and Low back pain M54.5 [facility] [address] [place] [address] 12/20/2024 Reginaldo Hanley Pain management contract broken Z91.148 ; Pain in right hip M25.551 ; Pain in left hip M25.552 ; Lumbago with sciatica, right side M54.41 ; Lumbago with sciatica, left side M54.42 ; Other chronic pain G89.29 ; Essential hypertension I10 ; Right flank pain R10.9 and Increased urinary frequency R35.0 [facility] [address] [facility] [place] [address] 01/18/2025 Reginaldo Hanley Type 2 diabetes mellitus with unspecified complications E11.8 ; Lumbago with sciatica, right side M54.41 ; Screening due Z13.9 ; Screening mammogram for breast cancer Z12.31 ; Morbid (severe) obesity due to excess calories E66.01 ; Body mass index [BMI] 40.0-44.9, adult Z68.41 ; Obesity, class 3 E66.813 ; Major depressive episode F32.9 ; Persistent depressive disorder F34.1 and Essential hypertension I10 [facility] [address] [place] [address] 03/15/2025 Reginaldo Hanley Neuropathic pain M79 .2 ; Neuropathy G62.9 ; Asthma J45.909 ; Type 2 diabetes mellitus with unspecified complications E11.8 and Screening due Z13.9 [facility] [address] [place] [address] 03/15/2025 Herminia Medeiros Lack of access to transportation Z91.89 [facility] [address] [place] [place] [address] 01/18/2025 Herminia Medeiros Lack of access to transportation Z91.89 [facility] [address] [place] [address] 12/20/2024 Herminia Medeiros Lack of access to transportation Z91.89 [facility] [address] [place] [address] 08/27/2024 Herminia Medeiros Lack of access to transportation Z91.89 [facility] [address] [place] [address] 08/16/2024 Herminia Medeiros Lack of access to transportation Z91.89 [facility] [address] [place] [address] 06/14/2024 Herminia Medeiros Lack of access to transportation Z91.89 Assessments Encounter Date Diagnosis (ICD Code) Assessment Notes Treatment Notes Treatment Clinical Notes Section Notes 06/14/2024 Lack of access to transportation (ICD-10 - Z91.89) Pt transported to and from appointment 06/14/2024 Type 2 diabetes mellitus with unspecified complications (ICD-10 - E11.8) Patient is doing well as far as her high blood pressure care and diabetes care and asthma care. We will check CBC, CMP, lipid panel, TSH for basic lab coverage today. Pertaining to her pain, I have sent a referral to pain management at this time. Patient has broken a pain contract with us in the past. However, patient notes that she went to rehab and did everything that was asked of her. I fill out a prescription for a nebulizer for the patient as she needs 1. I have also refilled her albuterol and Symbicort. We will follow-up in 1 month for screening. 06/14/2024 Nicotine dependence, unspecified, uncomplicated (ICD-10 - F17.200) Quitting Tobacco: Care Instructions material was printed 07/30/2024 Anxiety (ICD-10 - F41.9) 08/16/2024 Lack of access to transportation (ICD-10 - Z91.89) Pt transported to and from appointment 06/17/2024 Viral URI (ICD-10 - J06.9) 08/16/2024 Diarrhea of presumed infectious origin (ICD-10 - R19.7) 08/16/2024 Nausea and vomiting, unspecified vomiting type (ICD-10 - R11.2) Patient notes that Zofran gives her severe headaches. I will give her a prescription for promethazine for her nausea and vomiting. For her head lice, I we will give her permethrin solution to use in her hair. Furthermore, due to her findings of history and examination, I urged the patient to go to the ER due to findings of acute gallbladder pathology. Patient agrees. We will organize her transportation to send her to the ER at this time. Patient does appear dehydrated, so she will be able to receive some IV fluids and more efficient care in the emergency room for her presentation. All questions and concerns were addressed with the patient. Follow-up in 4 weeks for chronic follow-up for blood pressure and diabetes. 08/17/2024 Intertriginous candidiasis (ICD-10 - B37.2) 08/18/2024 Head lice (ICD-10 - B85.0) 08/27/2024 Lack of access to transportation (ICD-10 - Z91.89) Pt transported to and from appointment 08/27/2024 Symptomatic cholelithiasis (ICD-10 - K80.20) For the patient symptomatic cholelithiasis, I have placed a referral to general surgery at this time. I have also given her prescription for dicyclomine and hydrocodone with ibuprofen. Patient has an allergy to acetaminophen. I instructed the patient to stay away from high fat diet due to worsening of pain due to gallstones. For her head lice, I have prescribed her permethrin cream and solution. I have sent this 2 times before, but Luis has failed to fill it. I instructed the patient to call me if she has problems with filling this prescription for the third time. Pertaining to her acute cystitis without hematuria, I have obtained a UA with culture. Patient is complaining of dysuria still, so I need to assess if her Keflex is resistant for her current UTI now. Previous culture showed that Keflex was susceptible. I instructed the patient to keep taking the Keflex until we have results. I provided the patient with a written prescription for a rollator due to her difficulty walking and gait difficulty. Follow-up in 1 month for A1c check. 08/27/2024 Symptomatic cholelithiasis (ICD-10 - K80.20) 09/03/2024 Nausea and vomiting, unspecified vomiting type (ICD-10 - R11.2) 08/27/2024 Head lice (ICD-10 - B85.0) 09/14/2024 Anxiety (ICD-10 - F41.9) I have sent the refills as listed below. I have also provided the patient with a prescription pad for blood pressure monitor to check her blood pressure at home. I instructed the patient to check her blood pressure once a day at random times. I also instructed her to write these values down and write the time that the values were taken. Patient voices understanding and agreement to the plan of care. Follow-up in 3 months. Patient will call us and inform me of her blood pressure readings at home within the next few weeks. If these values remain elevated, we can schedule the patient for sooner appointment and make medication changes at that appointment as necessary. F/u PRN in this case. 09/14/2024 Intertriginous candidiasis (ICD-10 - B37.2) 09/27/2024 Nausea and vomiting, unspecified vomiting type (ICD-10 - R11.2) 10/12/2024 Anxiety (ICD-10 - F41.9) 10/28/2024 Nausea and vomiting, unspecified vomiting type (ICD-10 - R11.2) 11/04/2024 Type 2 diabetes mellitus with unspecified complications (ICD-10 - E11.8) 11/04/2024 Pain management contract signed (ICD-10 - Z02.89) Pain management contract was extensively explained to the patient. Patient verbalized agreement understanding to the contract. Contract was signed by myself and patient. We will follow-up in 1 month to recheck her pain control and potentially perform random urinary drug screen. I have started extended release Percocet at lowest dose at this time for her chronic pain. We will maintain at this dosage. Medications were refilled at this time. Follow-up in 1 month. 11/04/2024 Low back pain (ICD-10 - M54.5) 12/20/2024 Lack of access to transportation (ICD-10 - Z91.89) Pt transported to and from appointment 12/20/2024 Pain in right hip (ICD-10 - M25.551) 12/20/2024 Pain management contract broken (ICD-10 - Z91.148) Drug screen reveals negativity for all drugs. Due to this finding along with patient admitting she takes her medication more than prescribed, we will stop the pain contract at this time. The pain contract was broken by the patient. Oxycodone will no longer be given. Secure note will be placed and the patient history. Continuing, for her chronic pain, I will refer her to pain management at this time. For her essential hypertension, we have increased amlodipine from 5 mg to 10 mg. Patient notes she will check her blood pressure at home. I have given her a prescription pad for blood pressure monitor. For the right flank pain, I have ordered a CT scan without contrast to assess for nephrolithiasis. In the meantime, I instruct the patient to drink plenty of clear fluids and water. Patient voices understanding and agreement to the plan of care. Follow-up in 1 month concerning blood pressure. 01/18/2025 Lack of access to transportation (ICD-10 - Z91.89) Pt transported to and from appointment 01/18/2025 Type 2 diabetes mellitus with unspecified complications (ICD-10 - E11.8) A1c is 6.3% today. Diet and exercise were discussed with patient. Patient notes it is difficult for her to exercise due to her pain in her low back and knees. She also finds it difficult to get out of bed due to her depression. She notes she does not really watch what she eats. Screening is due at this time for mammography. I have placed an order for this. For her low back pain, I have sent a referral to a different pain specialist at this time as patient is unsatisfied with her care with her current specialist. For her morbid obesity causing worsening of low back pain and knee pain and worsening of comorbidities, we will start Mounjaro at this time for weight loss. Patient is appreciative of this. Pertaining to her double depression, patient would like to see how she does off of duloxetine at this time and would like for me to take over for her mental health care. We will wean her off of this medication. Ergo, I have decreased her duloxetine from 60 mg to 40 mg for the next week to 2. I informed the patient to let us know how she does in 2 weeks with this decrease in dosage. Patient also verifies that she will feel the prescription for the blood pressure monitor at home as her blood pressure does wax and wane here in the office. Patient voices understanding and agreement to the plan of care. Follow-up in 1 month for chronic care needs. 01/18/2025 Lumbago with sciatica, right side (ICD-10 - M54.41) 01/24/2025 Obesity, class 3 (ICD-10 - E66.813) 03/15/2025 Insomnia, unspecified type (ICD-10 - G47.00) 03/15/2025 Anxiety (ICD-10 - F41.9) 03/15/2025 Lack of access to transportation (ICD-10 - Z91.89) Pt transported to and from appointment 03/15/2025 Neuropathy (ICD-10 - G62.9) 03/15/2025 Neuropathic pain (ICD-10 - M79.2) - Referral to pain management has been sent to [facility] to ensure appropriate management of pain symptoms.- Gabapentin prescription has been refilled. Monitoring of kidney function is necessary before further refills.- A kidney function test is required to monitor the effects of gabapentin. This is a blood test, and fasting for 8 hours prior is necessary. All other labs needed at this time are placed.- Mounjaro is prescribed for diabetes management, starting with 2.5 mg once a week for 4 weeks, then increasing to 5 mg, 7.5 mg, and 10 mg every subsequent 4 weeks. Continue current diabetes medications alongside Mounjaro.- A follow-up appointment is scheduled in one month to review lab results and assess ongoing treatment. The option for a virtual consultation is available to accommodate transportation challenges. 04/05/2025 Intertriginous candidiasis (ICD-10 - B37.2) 03/15/2025 Asthma (ICD-10 - J45.909) 03/15/2025 Anxiety (ICD-10 - F41.9) 01/18/2025 Screening due (ICD-10 - Z13.9) 12/20/2024 Pain in left hip (ICD-10 - M25.552) 11/04/2024 Intertriginous candidiasis (ICD-10 - B37.2) 09/14/2024 Chest congestion (ICD-10 - R09.89) 08/16/2024 Head lice (ICD-10 - B85.0) 08/27/2024 Acute cystitis without hematuria (ICD-10 - N30.00) 08/17/2024 Type 2 diabetes mellitus with unspecified complications (ICD-10 - E11.8) 06/14/2024 Difficulty walking (ICD-10 - R26.2) 06/17/2024 Anxiety (ICD-10 - F41.9) 06/17/2024 Type 2 diabetes mellitus with unspecified complications (ICD-10 - E11.8) 06/14/2024 Hyperlipidemia (ICD-10 - E78.5) 08/16/2024 Dehydration (ICD-10 - E86.0) 08/27/2024 Difficulty walking (ICD-10 - R26.2) 09/14/2024 Head lice (ICD-10 - B85.0) 12/20/2024 Lumbago with sciatica, right side (ICD-10 - M54.41) 11/04/2024 Anxiety (ICD-10 - F41.9) 03/15/2025 Type 2 diabetes mellitus with unspecified complications (ICD-10 - E11.8) 01/18/2025 Screening mammogram for breast cancer (ICD-10 - Z12.31) 03/15/2025 Screening due (ICD-10 - Z13.9) 11/04/2024 Sciatica of right side (ICD-10 - M54.31) 01/18/2025 Morbid (severe) obesity due to excess calories (ICD-10 - E66.01) 12/20/2024 Lumbago with sciatica, left side (ICD-10 - M54.42) 09/14/2024 Nausea and vomiting, unspecified vomiting type (ICD-10 - R11.2) 08/27/2024 Gait difficulty (ICD-10 - R26.9) 08/16/2024 Right upper quadrant abdominal pain (ICD-10 - R10.11) 06/17/2024 Insomnia, unspecified type (ICD-10 - G47.00) 06/14/2024 Asthma (ICD-10 - J45.909) 06/14/2024 Essential (primary) hypertension (ICD-10 - I10) 06/17/2024 Chronic idiopathic constipation (ICD-10 - K59.04) 09/14/2024 Essential (primary) hypertension (ICD-10 - I10) 11/04/2024 Low back pain (ICD-10 - M54.5) 12/20/2024 Other chronic pain (ICD-10 - G89.29) 01/18/2025 Body mass index [BMI] 40.0-44.9, adult (ICD-10 - Z68.41) 12/20/2024 Essential hypertension (ICD-10 - I10) 01/18/2025 Obesity, class 3 (ICD-10 - E66.813) 06/17/2024 Asthma (ICD-10 - J45.909) 06/14/2024 Chronic idiopathic constipation (ICD-10 - K59.04) 06/14/2024 Other chronic postprocedural pain (ICD-10 - G89.28) 09/14/2024 Type 2 diabetes mellitus with unspecified complications (ICD-10 - E11.8) 01/18/2025 Major depressive episode (ICD-10 - F32.9) 12/20/2024 Right flank pain (ICD-10 - R10.9) 01/18/2025 Persistent depressive disorder (ICD-10 - F34.1) 12/20/2024 Increased urinary frequency (ICD-10 - R35.0) 01/18/2025 Essential hypertension (ICD-10 - I10) 06/14/2024 Other Body Mass Index : Care Instructions material was printed 11/04/2024 Other Body Mass Index : Care Instructions material was printed, Body Mass Index: Care Instructions material was printed, Learning About Benefits of Quitting Smoking material was printed Plan Of Treatment Pending Test Test Name Order Date Comprehensive Metabolic Panel 03/15/2025 Lipid Panel 03/15/2025 Thyroid Stim Hormone w/Rflx 03/15/2025 Complete Blood Count Auto Diff CT abdomen pelvis wo con 12/20/2024 MM screening mammo BI w/CAD 01/18/2025 Next Appt Details Provider Name:Reginaldo hinton, 06/07/2025 02:30:00 PM, [address], [place], [address], Insurance Providers Payer Name Payer Address Payer Phone Subscriber Number Group Number Insured Name Patient Relationship to Insured Coverage Start Date Coverage End Date [employer] [place] Medicaid [address] [place] [address] [phone] [id number] ALIRIO CUNHA Self - patient is the insured 3 Wrap ABD [employer] [address] [place] [address] [id number] ALIRIO CUNHA Self - patient is the insured 3 [employer] -termed 22 [address] [place] [address] [id number] ALIRIO CUNHA Self - patient is the insured 9 3 zMEDICAID ABD after [employer]- termed 22 [address] [place] [address] [id number] ALIRIO CUNHA Self - patient is the insured 9 3 zBH [employer]- termed 22 [address] [place] [address] [id number] ALIRIO CUNHA Self - patient is the insured 1 zDENTAL DQ [employer]- termed 22 [address] [place] [address] [id number] ALIRIO CUNHA Self - patient is the insured 1 zDental Medicaid ABD after [employer] termed 22 [address] [place] [address] [id number] ALIRIO CUNHA Self - patient is the insured 1 MEDICAID TRANSPORTAT ION [address] [place] [address] [id number] ALIRIO CUNHA Self - patient is the insured 4 .Transport ABD [employer] wrap [address] [place] [address] [id number] ALIRIO CUNHA Self - patient is the insured 4 Medical (General) History Medical History History ICD Code LEVEL 4 HTN DM OA of spine bipolar emphysema Hernia in esophagus HTN (hypertension) I10 COPD gallstones Surgical History Surgery Date(Month/Year) back surgery 04,05,06 tonsilectomy as child appendectomy as teenager TKA R knee Aug 2014 TKA L knee 2014 total abdominal hysterectomy 2002 throat surgery [id number] gallbladder 09/2024 Hospitalization History Reason Date(Month/Year) Vaginal Lacerations 2018 ICU stay for pneumonia 2011
--- NOTE | 2025-05-26 08:36 | XR_ITS ---
The [address] [address] Patient Name: ALIRIO CUNHA MRN: [id number] date: 1960 Sex: F Assigned Patient Location: ER Current Patient Location: ER Accession/Order Number: [id number] Exam Date: 05/26/2025 09:23 Report Date: 05/26/2025 09:32 At the request of: VERNON CULLEN MD Procedure: XR hip RT min 2V CLINICAL DATA: Patient fell onto right side. Chronic right back pain radiating to the hip with increase in severity following the injury. Prior lumbar fusion. LUMBAR SPINE - 2 views COMPARISON: None AP and lateral views were obtained. There is osteopenia. The cortex at the L5 vertebra is not well seen. There is prior laminectomy and fusion with posterior rods, pedicle screws and interbody fusion devices extending from L4 through S1. The hardware appears intact and unchanged from the prior. There is wedge deformity at the superior aspect of L2 which is asymmetric toward the left. No other compression deformities are noted. There is slight anterolisthesis of L1 on L2. There is mild retrolisthesis of L3 on L4 and mild to moderate suspected anterolisthesis of L5 on S1. There is multilevel disc space narrowing above the fusion where there is also endplate sclerosis. There is vacuum phenomenon at L1-2 and L2-3. Endplate spurring is present along with facet disease. The SI joints are intact. Mild atherosclerotic disease is visualized. XR/XR hip RT min 2V IMPRESSION: OSTEOPENIA WITH POSTOPERATIVE AND DEGENERATIVE CHANGES. L1 COMPRESSION DEFORMITY AND POORLY VISUALIZED L5, UNKNOWN CHRONICITY WITHOUT PRIORS. COMPARISON TO ANY EXISTING OUTSIDE STUDIES MAY BE HELPFUL. RIGHT HIP - 2 views COMPARISON: None Evaluation is slightly limited by osteopenia and large body habitus. No obvious acute fracture or dislocation is seen. The hip joint space is maintained. There is minor SI joint sclerosis. No soft tissue abnormalities are present. IMPRESSION: NO DEFINITE ACUTE BONY INJURY. Impression dictated by: Emi Liang M.D. 05/26/2025 9:32 AM Dictation Location: [place] [address] Electronically authenticated by: [id number] Y Date: 05/26/2025 09:32
--- NOTE | 2025-05-26 08:36 | XR_ITS ---
The [address] [address] Patient Name: ALIRIO CUNHA MRN: [id number] date: 1960 Sex: F Assigned Patient Location: ER Current Patient Location: ER Accession/Order Number: [id number] Exam Date: 05/26/2025 09:23 Report Date: 05/26/2025 09:32 At the request of: VERNON CULLEN MD Procedure: XR hip RT min 2V CLINICAL DATA: Patient fell onto right side. Chronic right back pain radiating to the hip with increase in severity following the injury. Prior lumbar fusion. LUMBAR SPINE - 2 views COMPARISON: None AP and lateral views were obtained. There is osteopenia. The cortex at the L5 vertebra is not well seen. There is prior laminectomy and fusion with posterior rods, pedicle screws and interbody fusion devices extending from L4 through S1. The hardware appears intact and unchanged from the prior. There is wedge deformity at the superior aspect of L2 which is asymmetric toward the left. No other compression deformities are noted. There is slight anterolisthesis of L1 on L2. There is mild retrolisthesis of L3 on L4 and mild to moderate suspected anterolisthesis of L5 on S1. There is multilevel disc space narrowing above the fusion where there is also endplate sclerosis. There is vacuum phenomenon at L1-2 and L2-3. Endplate spurring is present along with facet disease. The SI joints are intact. Mild atherosclerotic disease is visualized. XR/XR lumbar spine 2-3V IMPRESSION: OSTEOPENIA WITH POSTOPERATIVE AND DEGENERATIVE CHANGES. L1 COMPRESSION DEFORMITY AND POORLY VISUALIZED L5, UNKNOWN CHRONICITY WITHOUT PRIORS. COMPARISON TO ANY EXISTING OUTSIDE STUDIES MAY BE HELPFUL. RIGHT HIP - 2 views COMPARISON: None Evaluation is slightly limited by osteopenia and large body habitus. No obvious acute fracture or dislocation is seen. The hip joint space is maintained. There is minor SI joint sclerosis. No soft tissue abnormalities are present. IMPRESSION: NO DEFINITE ACUTE BONY INJURY. Impression dictated by: Emi Liang M.D. 05/26/2025 9:32 AM Dictation Location: [place] [address] Electronically authenticated by: [id number] Y Date: 05/26/2025 09:32
--- NOTE | 2025-05-26 08:37 | ED.GENADUL1 ---
HPI HPI - General Adult General Chief complaint: Extremity Injury, Lower Stated complaint: LOWER EXTREMITY PAIN Time Seen by Provider: 05/26/25 08:26 Source: patient Mode of arrival: walk-in Limitations: no limitations History of Present Illness HPI narrative: 64-year-old female presents to the emergency department for pain in her right hip and right buttock area. She fell about 1:00 in the morning when she tripped on her pants leg. She has been able to walk since then. She states the pain is severe and she did not sustain any other injuries, she did not hit her head. Related Data Home Medications ?Medication ?Instructions ?Recorded ?Confirmed amlodipine 10 mg tablet 10 mg PO DAILY 05/26/25 05/26/25 atorvastatin 80 mg tablet 80 mg PO DAILY 05/26/25 05/26/25 budesonide-formoterol HFA 80 2 inh inhalation Q12H 05/26/25 05/26/25 mcg-4.5 mcg/actuation aerosol inhaler (Symbicort) fluticasone propionate 50 2 spray intranasal Q12H 05/26/25 05/26/25 mcg/actuation nasal spray,suspension gabapentin 600 mg tablet 600 mg PO DAILY 05/26/25 05/26/25 ipratropium bromide 17 2 inh inhalation Q4H PRN shortness 05/26/25 05/26/25 mcg/actuation HFA aerosol inhaler of breath or wheezing (Atrovent HFA) losartan 50 mg tablet 50 mg PO DAILY 05/26/25 05/26/25 melatonin 3 mg tablet 3 mg PO BEDTIME 05/26/25 05/26/25 metformin 500 mg tablet,extended 500 mg PO DAILY 05/26/25 05/26/25 release 24 hr omeprazole 40 mg capsule,delayed 40 mg PO DAILY 05/26/25 05/26/25 release propranolol 160 mg capsule,24 160 mg PO Q24H 05/26/25 05/26/25 hr,extended release Previous Rx's ?Medication ?Instructions ?Recorded acetaminophen 300 mg-codeine 30 mg 1 tab PO Q6H PRN pain 5 days #20 05/26/25 tablet tabs Allergies Allergy/AdvReac Type Severity Reaction Status Date / Time Penicillins Allergy Severe Unknown Verified 05/26/25 08:29 aspirin Allergy Unknown Unknown Verified 05/26/25 08:29 Iodinated Contrast Media Allergy Unknown Unknown Verified 05/26/25 08:29 lisinopril Allergy Unknown Unknown Verified 05/26/25 08:29 prednisone Allergy Unknown Unknown Verified 05/26/25 08:29 Sulfa (Sulfonamide Allergy Unknown Unknown Verified 05/26/25 08:29 Antibiotics) sumatriptan (From Imitrex) Allergy Unknown Unknown Verified 05/26/25 08:29 tramadol (From Ultram) Allergy Unknown Unknown Verified 05/26/25 08:29 Opioid HPI Opioid Management Most Recent Opioid Data: Last Pain Scale 10 Today, 08:34 Review of Systems ROS Narrative A ten point review of systems is negative except as noted above. PFSH PFSH Social History Little interest or pleasure in doing things: not at all Feeling down, depressed, or hopeless: not at all Exam Narrative Exam Narrative: Nurses note and vital signs reviewed and patient is not hypoxic. General: The is laying on her left side. Skin: Warm, dry, no pallor noted. There is no rash noted. Head: Normocephalic, atraumatic Eye: Normal conjunctiva, no drainage Ears, Nose, Mouth, and Throat: oral mucosa is moist. Nares patent. Cardiovascular: Regular Rate and Rhythm Respiratory: Patient is in no distress, no accessory muscle use, lungs are clear to auscultation, no wheezing, rales or rhonchi Back: No bruise or abrasion GI: Soft and nontender Musculoskeletal: No deformity in the right hip. No bruise or abrasion. No focal area of tenderness to palpation Neurological: A&O, normal speech Psychiatric: Cooperative, tearful at times Constitutional Vital Signs, click to edit/add: Last Vital Signs Temp 98.9 F 05/26/25 08:29 Pulse 69 05/26/25 08:29 Resp 18 05/26/25 08:29 BP 178/110 H 05/26/25 08:29 Pulse Ox 93 L 05/26/25 08:29 O2 Del Method Room Air 05/26/25 08:29 Course Vital Signs Vital signs: Vital Signs Temperature 98.9 F 05/26/25 08:29 Pulse Rate 69 05/26/25 08:29 Respiratory Rate 18 05/26/25 08:29 Blood Pressure 178/110 H 05/26/25 08:29 Pulse Oximetry 93 L 05/26/25 08:29 Oxygen Delivery Method Room Air 05/26/25 08:29 Temperature 98.9 F 05/26/25 08:29 Pulse Rate 69 05/26/25 08:29 Respiratory Rate 18 05/26/25 08:29 Blood Pressure 178/110 H 05/26/25 08:29 Pulse Oximetry 93 L 05/26/25 08:29 Oxygen Delivery Method Room Air 05/26/25 08:29 Medical Decision Making MDM Narrative Medical decision making narrative: X-ray showed no acute findings and she was prescribed Tylenol 3 and given 1 here. Treatment diagnosis and follow-up were discussed with the patient. Differential Diagnosis Differential Diagnosis: Contusion, fracture Imaging Data Lumbar, hip x-rays: Radiologist's impression: ITS Impressions Hip X-Ray 05/26/25 08:36 IMPRESSION: OSTEOPENIA WITH POSTOPERATIVE AND DEGENERATIVE CHANGES. L1 COMPRESSION DEFORMITY AND POORLY VISUALIZED L5, UNKNOWN CHRONICITY WITHOUT PRIORS. COMPARISON TO ANY EXISTING OUTSIDE STUDIES MAY BE HELPFUL. RIGHT HIP - 2 views COMPARISON: None Evaluation is slightly limited by osteopenia and large body habitus. No obvious acute fracture or dislocation is seen. The hip joint space is maintained. There is minor SI joint sclerosis. No soft tissue abnormalities are present. IMPRESSION: NO DEFINITE ACUTE BONY INJURY. Impression dictated by: Emi Liang M.D. 05/26/2025 9:32 AM Dictation Location: [email or web address] Electronically authenticated by: [id number] Y Date: 05/26/2025 09:32 Lumbar Spine X-Ray 05/26/25 08:36 IMPRESSION: OSTEOPENIA WITH POSTOPERATIVE AND DEGENERATIVE CHANGES. L1 COMPRESSION DEFORMITY AND POORLY VISUALIZED L5, UNKNOWN CHRONICITY WITHOUT PRIORS. COMPARISON TO ANY EXISTING OUTSIDE STUDIES MAY BE HELPFUL. RIGHT HIP - 2 views COMPARISON: None Evaluation is slightly limited by osteopenia and large body habitus. No obvious acute fracture or dislocation is seen. The hip joint space is maintained. There is minor SI joint sclerosis. No soft tissue abnormalities are present. IMPRESSION: NO DEFINITE ACUTE BONY INJURY. Impression dictated by: Emi Liang M.D. 05/26/2025 9:32 AM Dictation Location: [email or web address] Electronically authenticated by: [id number] Y Date: 05/26/2025 09:32 Discharge Plan Discharge Chief Complaint: Extremity Injury, Lower Clinical Impression: Contusion of right hip Patient Disposition: Home, Self-Care Time of Disposition Decision: 10:04 Condition: Good Mode of Transportation: Private Vehicle Prescriptions / Home Meds: New acetaminophen-codeine 300-30 mg tablet 1 tab PO Q6H PRN (Reason: pain) 5 Days Qty: 20 0RF No Action amlodipine 10 mg tablet 10 mg PO DAILY atorvastatin 80 mg tablet 80 mg PO DAILY budesonide-formoterol [Symbicort] 80-4.5 mcg/actuation HFA aerosol inhaler 2 inh INHALATION Q12H fluticasone propionate 50 mcg/actuation spray,suspension 2 spray INTRANASAL Q12H gabapentin 600 mg tablet 600 mg PO DAILY Atrovent HFA 17 mcg/actuation HFA aerosol inhaler 2 inh INHALATION Q4H PRN (Reason: shortness of breath or wheezing) metformin 500 mg tablet extended release 24 hr 500 mg PO DAILY melatonin 3 mg tablet 3 mg PO BEDTIME losartan 50 mg tablet 50 mg PO DAILY omeprazole 40 mg capsule,delayed release(DR/EC) 40 mg PO DAILY propranolol 160 mg capsule,extended release 24 hr 160 mg PO Q24H Print Language: Georgian Instructions: Hip Contusion (ED) Referrals: [facility] [Primary Care Provider] - 1 week
[2025-05-26] MEDS: ACETAMINOPHEN 300 MG/ 30 MG CODEINE TABLET 1 TAB PO (10:08)
[2025-05-26 10:21] VITALS: BP 158/90
== END 2025-05-26 10:24 | disposition home or self-care (01) ==
PROVIDERS: Emergency Provider Emergency Medicine
DX: S70.01XA Contusion of right hip, initial encounter (principal); W01.0XXA Fall on same level from slipping, tripping and stumbling without subsequent striking against object, initial encounter; Z98.1 Arthrodesis status; M85.88 Other specified disorders of bone density and structure, other site
CPT/HCPCS: 72100; 73502; 99284

== ENCOUNTER 2025-07-24 11:26 | Emergency (ER) | payer OTHER, SELFPAY ==
--- OUTSIDE RECORDS SUMMARY | 2025-06-23 11:30 | XMS_ITS ---
Author Organization [facility] Servic es Address [address] [place] [address] Care Team Providers Care Extra Gang Supervisor Name Role Phone Reginaldo Hanley Primary Care Provider [phone] REASON FOR VISIT rollator issues/ ADLS Medications Medication SIG (Take, Route, Frequency, Duration) Notes Start Date End Date Status amLODIPine Besylate 10 MG take 1 tablet by mouth once daily Orally Once a day; Duration: 30 days Active Omeprazole 40 MG take 1 capsule by mo ut once daily; Duration: 30 Active Tirzepatide 2.5 MG/0.5ML Take 2.5 mg Subcutaneous Once a week; Duration: 28 days 06/07/2025 07/05/2025 Active Walker - as directed; Duratio n: 365 days 06/07/2025 Active RA Alcohol Swabs 70 % use as directed da beverly TO CHECK SUGARS 30; Duration: 30 days Active DULoxetine HCl 40 MG take 1 capsule by m out twice a day Orally Once a day; Duration: 30 days Not-Taking test strips Freestyle Lite as directed externally twice a day; Duration: 90 days 06/23/2014 10/30/2025 Active Gabapentin 600 MG 1 tablet Orally Once a day; Duration: 30 day(s) 03/15/2025 Active hydrOXYzine Pamoate 50 MG 1 capsule at bedtime as needed Orally every eight hours; Duration: 90 days As needed for anxiety attacks 09/14/2024 Active Lancets - as directed fingerti p three times a day; Duration: 30 days E11.9 Active Levalbuterol HCl 0.63 MG/3ML 3 mL as needed Inhalation every 6 hours; Duration: 30 days 06/07/2025 Active Alcohol Prep 70 % USE TO STERILIZE SKI N FOR TESTING BLOOD SUGAR THREE TIMES A DAY *NEW PRESCRIPTION REQUEST*; Duration: 3 Active Aspercreme Lidocaine 4 % APPLY TO AFFECTED AREA(S) TOPICALLY NEEDED *NEW PRESCRIPTION REQUEST*; Duration: 76 Active True Metrix Air Glucose Meter - as directed; Duration: 365 days 06/18/2025 Active Glucometer - place 1 drop of bloo d externally TID 12/07/2021 Active Atorvastatin Calcium 80 MG TAKE 1 TABLET BY MOUTH EVERY DAY *NEW PRESCRIPTION REQUEST*; Duration: 90 Active EPINEPHrine 0.3 MG/0.3ML INJECT DIRECTED NEEDED FOR ALLERGIC REACTION *NEW PRESCRIPTION REQUEST*; Duration: 6 Active Fluticasone Propionate 50 MCG/ACT instill 1 spray into each nostril twice a day if needed Nasally twice a day; Duration: 90 days Active Melatonin 3 MG TAKE 3 TABLETS BY MO UT EVERY NIGHT AT BEDTIME NEEDED FOR SLEEP *NEW PRESCRIPTION REQUEST*; Duration: 90 Active Losartan Potassium 50 MG TAKE 1 TABLET BY MOUTH EVERY DAY *NEW PRESCRIPTION REQUEST*; Duration: 90 Active OneTouch Ultra - USE TO TEST BLOOD ROBERTS GAR 3 TIMES DAILY *NEW PRESCRIPTION REQUEST*; Duration: 100 Active Propranolol HCl ER 160 MG TAKE ONE (1) CAPSULE BY MOUTH ONCE DAILY *NEW PRESCRIPTION REQUEST*; Duration: 90 Active metFORMIN HCl ER 750 MG TAKE 1 TABLET BY MOUTH EVERY DAY WITH EVENING MEAL *NEW PRESCRIPTION REQUEST*; Duration: 90 Active Nystatin 393101 UNIT/GM APPLY TO AFFECTE D AREA(S) THREE TIMES A DAY *NEW PRESCRIPTION REQUEST*; Duration: 30 Active Symbicort 80-4.5 MCG/ACT INHALE TWO (2) PUFFS BY MOUTH TWICE DAILY *NEW PRESCRIPTION REQUEST*; Duration: 90 Active Promethazine HCl 12.5 MG 1 tablet as needed Orally every 6 hrs; Duration: 30 day(s) Active OneTouch Delica Plus [id number] - USE TO TEST BLOOD SUGAR 3 TIMES DAILY *NEW PRESCRIPTION REQUEST*; Duration: 90 Active EPINEPHrine 0.3 MG/0.3ML Inject one syringe in the outer thigh as needed for allergic reaction; Max daily dose 2 (TWO) syringes Injection Active Social History Sex Assigned At : Social History Observation Description Sex Assigned At Female Encounters Encounter Location Date Provider Diagnosis [facility] [address] [place] [address] 06/23/2025 Reginaldo Hanley Plan Of Treatment Next Appt Details Provider Name:Reginadlo hinton, 09/09/2025 01:00:00 PM, [address], [place], [address], Progress Notes * ALPHONSE ALIRIO DDOB: [birth year] (64 yo F)Acc No.[id number]:06/23/2025 Virtual Primary Care Visit Patient: ALIRIO GEIGER Account Number:[id number] Appointment Provider: Amee Hanley DO :1960 A ge:64 Y S ex:Female Date:06/23/2025 Address:[address] [place], [place] [address] Subjective: * Chief Complaints: * 1 . rollator issues/ ADLS. * Medical History: * Medications: T aking Glucometer - - place 1 drop of blood externally TID , Taking Lancets - Miscellaneous as directed fingertip three times a day , Notes to Pharmacist: E11.9, Taking test strips Freestyle Lite DIAGNOSIS: DIABETES WITH UNSPECIFIED COMPLICATION 250.90 as directed externally twice a day , stop date 10/30/2025, Taking hydrOXYzine Pamoate 50 MG Capsule 1 capsule at bedtime as needed Orally every eight hours As needed for anxiety attacks, Taking Gabapentin 600 MG Tablet 1 tablet Orally Once a day , Taking RA Alcohol Swabs 70 % Pad use as directed daily TO CHECK SUGARS 30 , Taking Omeprazole 40 MG Capsule Delayed Release take 1 capsule by mouth once daily , Taking amLODIPine Besylate 10 MG Tablet take 1 tablet by mouth once daily Orally Once a day , Taking Walker - Miscellaneous as directed , Taking Tirzepatide 2.5 MG/0.5ML Solution Auto-injector Take 2.5 mg Subcutaneous Once a week , stop date 07/05/2025, Taking EPINEPHrine 0.3 MG/0.3ML Solution Prefilled Syringe Inject one syringe in the outer thigh as needed for allergic reaction; Max daily dose 2 (TWO) syringes Injection , Taking OneTouch Delica Plus [id number] - Miscellaneous USE TO TEST BLOOD SUGAR 3 TIMES DAILY *NEW PRESCRIPTION REQUEST* , Taking Promethazine HCl 12.5 MG Tablet 1 tablet as needed Orally every 6 hrs , Taking Propranolol HCl ER 160 MG Capsule Extended Release 24 Hour TAKE ONE (1) CAPSULE BY MOUTH ONCE DAILY *NEW PRESCRIPTION REQUEST* , Taking OneTouch Ultra - Strip USE TO TEST BLOOD SUGAR 3 TIMES DAILY *NEW PRESCRIPTION REQUEST* , Taking Symbicort 80-4.5 MCG/ACT Aerosol INHALE TWO (2) PUFFS BY MOUTH TWICE DAILY *NEW PRESCRIPTION REQUEST* , Taking Nystatin 820339 UNIT/GM Powder APPLY TO AFFECTED AREA(S) THREE TIMES A DAY *NEW PRESCRIPTION REQUEST* , Taking metFORMIN HCl ER 750 MG Tablet Extended Release 24 Hour TAKE 1 TABLET BY MOUTH EVERY DAY WITH EVENING MEAL *NEW PRESCRIPTION REQUEST* , Taking Losartan Potassium 50 MG Tablet TAKE 1 TABLET BY MOUTH EVERY DAY *NEW PRESCRIPTION REQUEST* , Taking Melatonin 3 MG Tablet TAKE 3 TABLETS BY MOUTH EVERY NIGHT AT BEDTIME NEEDED FOR SLEEP *NEW PRESCRIPTION REQUEST* , Taking Fluticasone Propionate 50 MCG/ACT Suspension instill 1 spray into each nostril twice a day if needed Nasally twice a day , Taking EPINEPHrine 0.3 MG/0.3ML Solution Auto-injector INJECT DIRECTED NEEDED FOR ALLERGIC REACTION *NEW PRESCRIPTION REQUEST* , Taking Atorvastatin Calcium 80 MG Tablet TAKE 1 TABLET BY MOUTH EVERY DAY *NEW PRESCRIPTION REQUEST* , Taking Aspercreme Lidocaine 4 % Cream APPLY TO AFFECTED AREA(S) TOPICALLY NEEDED *NEW PRESCRIPTION REQUEST* , Taking Alcohol Prep 70 % Pad USE TO STERILIZE SKIN FOR TESTING BLOOD SUGAR THREE TIMES A DAY *NEW PRESCRIPTION REQUEST* , Taking Levalbuterol HCl 0.63 MG/3ML Nebulization Solution 3 mL as needed Inhalation every 6 hours , Taking True Metrix Air Glucose Meter - Device as directed , Not- Taking/PRN DULoxetine HCl 40 MG Capsule Delayed Release Particles take 1 capsule by mouth twice a day Orally Once a day Objective: * Vitals: Assessment: Plan: * Treatment: * Images: * Electronic signature of Pedro Hanley DO on 07/24/2025 at 11:53 AM EDT Sign off status: Pending * Appointment Provider: Amee Hanley DO Date: 06/23/2025 Generated for Tiffany ruffin/Julio/Ramez on: 07/24/2025 11:53 AM EDT
--- OUTSIDE RECORDS SUMMARY | 2025-06-24 09:15 | XMS_ITS ---
Author Organization [facility] Serv[facility] Address [address] [place] [address] Care Team Providers Care Cancer Program Director Name Role Phone Reginaldo Hanley Primary Care [...] Melatonin 3 MG TAKE 3 TABLETS BY GA UT EVERY NIGHT AT BEDTIME NEEDED FOR [...] *NEW PRESCRIPTION REQUEST*; Duration: 90 Active Nystatin 854772 UNIT/GM APPLY TO AFFECTE D AREA(S) THREE TIMES A DAY *NEW PRESCRIPTION REQUEST*; Duration: 30 Active OneTouch Delica Plus Nhsxik10J - USE TO TEST BLOOD SUGAR 3 [...] Female Encounters Encounter Location Date Provider Diagnosis [facility] [address] [place] [address] 06/24/2025 Reginaldo Hanley Plan Of Treatment Next Appt Details Provider Name:Reginaldo hinton, 09/09/2025 01:00:00 PM, [address], [place], [address], Progress Notes * ALIRIO CUNHA DDOB: [birth year] (64 yo F)Acc No.[id number]:06/24/2025 Virtual Primary Care Visit Patient: ALIRIO GEIGER Account Number:[id number] Appointment Provider: Amee Hanley DO :1960 A ge:64 Y S ex:Female Date:06/24/2025 Address:[address] [place] [address] [facility] Subjective: * Chief Complaints: * 1 . [...] syringes Injection , Taking OneTouch Delica Plus [id number] - Miscellaneous USE TO TEST BLOOD SUGAR [...] DAILY *NEW PRESCRIPTION REQUEST* , Taking Nystatin 954970 UNIT/GM Powder APPLY TO AFFECTED AREA(S) THREE [...] Date: 06/24/2025 Generated for Tiffany ruffin/Julio/Ramez on: 07/24/2025 11:53 AM EDT
--- OUTSIDE RECORDS SUMMARY | 2025-06-28 11:15 | XMS_ITS ---
Author Organization [facility] Address [address] [place] [address] Care Team Providers Care Senior Piping Designer Name Role Phone Reginaldo Halney Primary Care Provider REASON FOR VISIT rollator issue Social History Sex Assigned At : Social History Observation Description Sex Assigned At Female Encounters Encounter Location Date Provider Diagnosis [facility] [address] [place] [place] [address] 06/28/2025 Reginaldo Hanley Plan Of Treatment Next Appt Details Provider Name:Reginaldo hinton, 09/09/2025 01:00:00 PM, [address], [place], [address], Progress Notes * ALIRIO CUNHA DDOB: [birth year] (64 yo F)Acc No.[id number]:06/28/2025 Progress Notes Patient: Nessa ALIRIO FOWLER Account Number:[id number] Appointment Provider: Amee Hanley DO :1960 A ge:64 Y S ex:Female Date:06/28/2025 Address:[address] [place], [place] [address] Subjective: * Chief Complaints: * 1 . Rollator issue. * Medical History: Objective: * Vitals: Assessment: Plan: * Treatment: * Images: * Electronic signature of Pedro Hanley DO on 07/24/2025 at 11:52 AM EDT Sign off status: Pending * Appointment Provider: Amee Hanley DO Date: 0 06/28/2025 Generated for Tiffany ruffin/Julio/Terriitting on: 0 07/24/2025 11:52 AM EDT
--- OUTSIDE RECORDS SUMMARY | 2025-07-14 15:00 | XMS_ITS | Encounter Summary ---
Author Organization [facility] Address [address] [place] [address] Care Team Providers Care Associate Merchandise Planner Name Role Phone Rochelle Jose MD Primary Care Provider [phone] Reason for Visit * Reason Comments Medication Follow-up Encounter Details Date Type Department Care Team (Late st Contact Info) Description 07/14/2025 3:00 PM EDT Telemedicine [facility] [address] [phone] Nichole Anton, DO [address] [id number] Alcohol use disorder, severe, dependence (Primary Dx); Cocaine use disorder; Neuropathy of right lower extremity Social History Tobacco Use Types Packs/Day Years Used Date Smoking Tobacco: Former Cigarettes Smokeless Tobacco: Never Alcohol Use Standard Drinks/Week Comments Not Currently 0 (1 standard drink = 0.6 oz pur e alcohol) Comments Unknown Sex and Gender Information Value Date Recorded Sex Assigned at Not on file Legal Sex Female 7:25 PM EST Gender Identity Female 12/16/2017 2:12 PM EST Sexual Orientation Not on file documented as of this encounter Progress Notes * Mari El - 07/14/2025 3:00 PM EDT Current concerns: No concerns This visit was completed via Zoom event patient is at home Provider is at [place] office. Patient verbally consents to the submissions of a Telehealth visit. Patient is aware of the risks, benefits, and possible coinsurance/copay cost. Current medications: Current Outpatient Medications: amLODIPine 5 MG tablet, Take 1 tablet by mouth daily., Disp: , Rfl: atorvastatin 80 MG Tab tablet, , Disp: , Rfl: budesonide-formoterol 80-4.5 mcg/puff Aerosol inhaler, Inhale 2 puffs 2 times daily., Disp: , Rfl: EPIPEN 2-TERRA 0.3 MG/0.3ML Solution Auto-injector injection, , Disp: , Rfl: fluticasone 50 MCG/ACT Suspension nasal spray, , Disp: , Rfl: gabapentin 600 MG tablet, Take 1 tablet by mouth 3 times daily for 14 days., Disp: 42 tablet, Rfl: 0 guaiFENesin 600 MG Tab SR 12 HR tablet SR, Take 1 tablet by mouth 2 times daily., Disp: 56 tablet, Rfl: 2 hydrOXYzine hcl 50 MG tablet, Take 1 tablet by mouth 3 times daily as needed for Anxiety., Disp: 84tablet, Rfl: 2 Ipratropium 17 MCG/ACT Aero Soln inhaler, Inhale 2 puffs every 4 hours as needed for Wheezing., Disp: 12.9 g, Rfl: 2 levalbuterol 0.63 MG/3ML Nebu Soln inhalation solution, Inhale 3 mL every 6 hours as needed., Disp:3 mL, Rfl: 2 metFORMIN 500 MG tablet, Take 1 tablet by mouth 2 times daily with meals., Disp: , Rfl: omeprazole [address] capsule, Take 1 capsule by mouth daily., Disp: 28 capsule, Rfl: 2 Propranolol HCl CR 160 MG Cap SR 24HR, , Disp: , Rfl: Topiramate 50 MG tablet, Take 1 tablet by mouth 2 times daily for 14 days., Disp: 28 tablet, Rfl: 0 Current Facility-Administered Medications: acetaminophen (TYLENOL) tablet 650 mg, 650 mg, Oral, Q4H PRN, Prem Ko MD Problems with medication: yes to topiramate I had a reaction to it. Any cravings ,any time of day or night: No Any withdraw all symptoms, any time of day or night: No Any night sweats: No Any Using Dreams No Any use of opioid that isn't prescribed for you and is unknown to me: No Counselor- yes - Britney smith Labs: Reviewed No * Nichole Anton, DO - 07/14/2025 3:00 PM EDT History of Present Illness: Current concerns: says had a reaction to topiramate hives and whelps Current concerns: No concerns This visit was completed via Zoom event patient is at home Provider is at [place] office. Patient verbally consents to the submissions of a Telehealth visit. Patient is aware of the risks, benefits, and possible coinsurance/copay cost. Current medications: Current Outpatient Medications: amLODIPine 5 MG tablet, Take 1 tablet by mouth daily., Disp: , Rfl: atorvastatin 80 MG Tab tablet, , Disp: , Rfl: budesonide-formoterol 80-4.5 mcg/puff Aerosol inhaler, Inhale 2 puffs 2 times daily., Disp: , Rfl: EPIPEN 2-TERRA 0.3 MG/0.3ML Solution Auto-injector injection, , Disp: , Rfl: fluticasone 50 MCG/ACT Suspension nasal spray, , Disp: , Rfl: gabapentin 600 MG tablet, Take 1 tablet by mouth 3 times daily for 14 days., Disp: 42 tablet, Rfl: 0 guaiFENesin 600 MG Tab SR 12 HR tablet SR, Take 1 tablet by mouth 2 times daily., Disp: 56 tablet, Rfl: 2 hydrOXYzine hcl 50 MG tablet, Take 1 tablet by mouth 3 times daily as needed for Anxiety., Disp: 84tablet, Rfl: 2 Ipratropium 17 MCG/ACT Aero Soln inhaler, Inhale 2 puffs every 4 hours as needed for Wheezing., Disp: 12.9 g, Rfl: 2 levalbuterol 0.63 MG/3ML Nebu Soln inhalation solution, Inhale 3 mL every 6 hours as needed., Disp:3 mL, Rfl: 2 metFORMIN 500 MG tablet, Take 1 tablet by mouth 2 times daily with meals., Disp: , Rfl: omeprazole [address] capsule, Take 1 capsule by mouth daily., Disp: 28 capsule, Rfl: 2 Propranolol HCl CR 160 MG Cap SR 24HR, , Disp: , Rfl: Topiramate 50 MG tablet, Take 1 tablet by mouth 2 times daily for 14 days., Disp: 28 tablet, Rfl: 0 Current Facility-Administered Medications: acetaminophen (TYLENOL) tablet 650 mg, 650 mg, Oral, Q4H PRN, Prem Ko MD Problems with medication: yes to topiramate I had a reaction to it. Any cravings ,any time of day or night: No Any withdraw all symptoms, any time of day or night: No Any night sweats: No Any Using Dreams No Any use of opioid that isn't prescribed for you and is unknown to me: No Counselor- yes - GPW-Aduxb-Hrjaf jo Labs: Reviewed No Current medications: Current Medications[1] Counselor- yes - Christine Smith Social- at [facility] till Oct OARRS- reviewed Smoking Status Former Physical Exam Constitutional: Appearance: Normal appearance. Eyes: Extraocular Movements: Extraocular movements intact. Pupils: Pupils are equal, round, and reactive to light. Pulmonary: Effort: Pulmonary effort is normal. Musculoskeletal: General: Normal range of motion. Neurological: General: No focal deficit present. Mental Status: She is alert and oriented to person, place, and time. Psychiatric: Mood and Affect: Mood normal. Behavior: Behavior normal. 9 minutes was spent face to face with patient. Greater than 50% was spent counseling on care management as documented. Patient questions were answered to her satisfaction. Assessment and Plan 1. Alcohol use disorder, severe, dependence (Primary) Rtc 4 weeks for honey prescribing Didn't tolerate Topamax, see above, added to her allergy list 2. Cocaine use disorder As above, will manage urges with therapy 3. Neuropathy of right lower extremity - gabapentin 600 MG tablet; Take 1 tablet by mouth 3 times daily. Dispense: 84 tablet; Refill: 0 P. Dejon Anton DO [1] Current Outpatient Medications: amLODIPine 5 MG tablet, Take 1 tablet by mouth daily., Disp: , Rfl: atorvastatin 80 MG Tab tablet, , Disp: , Rfl: budesonide-formoterol 80-4.5 mcg/puff Aerosol inhaler, Inhale 2 puffs 2 times daily., Disp: , Rfl: EPIPEN 2-TERRA 0.3 MG/0.3ML Solution Auto-injector injection, , Disp: , Rfl: fluticasone 50 MCG/ACT Suspension nasal spray, , Disp: , Rfl: gabapentin 600 MG tablet, Take 1 tablet by mouth 3 times daily for 14 days., Disp: 42 tablet, Rfl: 0 guaiFENesin 600 MG Tab SR 12 HR tablet SR, Take 1 tablet by mouth 2 times daily., Disp: 56 tablet, Rfl: 2 hydrOXYzine hcl 50 MG tablet, Take 1 tablet by mouth 3 times daily as needed for Anxiety., Disp: 84tablet, Rfl: 2 Ipratropium 17 MCG/ACT Aero Soln inhaler, Inhale 2 puffs every 4 hours as needed for Wheezing., Disp: 12.9 g, Rfl: 2 levalbuterol 0.63 MG/3ML Nebu Soln inhalation solution, Inhale 3 mL every 6 hours as needed., Disp:3 mL, Rfl: 2 metFORMIN 500 MG tablet, Take 1 tablet by mouth 2 times daily with meals., Disp: , Rfl: omeprazole [address] capsule, Take 1 capsule by mouth daily., Disp: 28 capsule, Rfl: 2 Propranolol HCl CR 160 MG Cap SR 24HR, , Disp: , Rfl: Topiramate 50 MG tablet, Take 1 tablet by mouth 2 times daily for 14 days., Disp: 28 tablet, Rfl: 0 Current Facility-Administered Medications: acetaminophen (TYLENOL) tablet 650 mg, 650 mg, Oral, Q4H PRN, Prem Ko MD documented in this encounter Plan of Treatment Upcoming Encounters Date Type Department Care Team (Late st Contact Info) Description 08/11/2025 11:45 AM EDT Telemedicine [facility] [address] [place] [address] Nichole Anton DO [address] [place] [address] documented as of this encounter Visit Diagnoses Diagnosis Alcohol use disorder, severe, dependence- Primary Cocaine use disorder Neuropathy of right lower extremity documented in this encounter Care Teams Associate Merchandise Planner Relationship Specialty Start Date End Date Rochelle Jose MD PCP - General Family Medicine 03/20/23 documented as of this encounter
[2025-07-24] VITALS (12 sets, daily range): BP systolic 137–171; BP diastolic 73–95; PULSE 68–72; TEMP 36.7; O2SAT 88–96; BMI 43.9
--- OUTSIDE RECORDS SUMMARY | 2025-07-24 11:52 | XMS_ITS | Clinical Summary ---
Author Organization [facility] Address [address], [address] [place] [address] Care Team Providers Care Ship Superintendent Name Role Phone Argelia Bocanegra MD Primary Care Provider [phone] Allergies Active Allergy Reactions Criticality Noted Date [...] daily 120 each 1 05/02/20 25 Active Active Problems Problem Noted Date Diagnosed Date COPD exacerbation 04/28/2025 Diabetes mellitus without complication Opioid dependence 04/28/2025 Post-laminectomy syndrome 04/28/2025 Primary hypertension 09/30/2022 Tobacco use 09/30/2022 Encounters Date Type Department Care Team Description 05/11/2025 1:48 PM EDT - 05/11/2025 11:59 PM EDT [facility] [address] [place], [place] [address] COPD with acute exacerbation (HCC); Hypoxemia Discharge Disposition: Home or Self Care 05/09/2025 Transcribe Orders [facility] [address] [id number] Alf Patterson APRN - MISA COPD with acute exacerbation (HCC) (Primary Dx); Hypoxemia 04/28/2025 4:06 PM EDT - 05/02/2025 6:44 PM EDT Hospital Encounter [facility] [address] [place] [address] Chioma Link MD Sears, Christopher D, MD COPD exacerbation (HCC) (Primary Dx); Hypoxemia; Atrial fibrillation, unspecified type (HCC) Discharge Disposition: Inpatient Rehab Facility 04/28/2025 Travel from Last 3 Months Family History Medical [...] drink = 0.6 oz pur e alcohol) [facility] Utilities Answer Date Recorded In the past 12 months has [employer], gas, oil, or water [employer] threatened to shut off services in your [...] time in the past 12 m [facility], were you homeless or living in a halfway (including now)? No 04/28/2025 Food Insecurity Answer [...] 1-dose series) 2022 COVID-19 Vaccine (3 - 2023- season) 2024 04/04/2021, 03/08/2021 Flu vaccine (#1) [...] EKG 12-LEAD STAT 04/28/2025 4:07 PM EDT HEMOGLOBIN A1C Routine 03/07/2025 7:50 AM EDT from Last 3 Months or Most Recently Relevant to Health Maintenance Results * 6 Minute Walk Test (05/11/2025) SpO2 na % Distance Walked na ft us Alf Patterson ZINC MINER - RESIDENCE HALL DIRECTOR PFT ORDERABLES Final R esult * EKG Rhythm Strip (05/02/2025 3:00 PM EDT) Only the most recent of14 resultswithin the time period is included. 05/02/2025 3:00 PM EDT Narrative [facility] - 05/02/2025 4:22 PM EDT us Unknown Provider Result ECG ORDERABLES Final Re sult [facility] [address] [place] [address], [facility] [phone] * (ABNORMAL) ECHO (TTE) COMPLETE (05/02/2025 10:30 AM EDT) LV EDV A2C 74 mL [facility] CV CPACS LV EDV A4C 92 mL [facility] CV [facility]ACS LV ESV A2C 32 mL [facility] CV CPACS LV ESV A4C 41 mL [facility] CV CPACS IVSd 1.2(A) 0.6 - 0.9 cm BS CV CPACS LVIDd 4.6 3.9 - 5.3 cm BS CV CPACS LVIDs 3.2 cm BS CV CPACS LVOT Diameter 2.0 cm BS CV CPACS LVOT Mean Gradient 5 mmHg BS CV CPACS LVOT VTI 27.7 cm BS CV CPACS LVOT Peak Velocity 1.5 m/s BS CV CPACS LVOT Peak Gradient 9 mmHg BS CV CPACS LVPWd 1.1(A) 0.6 - 0.9 cm [facility] LV E' Lateral Velocity 11.00 [...] 87.0 ml BS CV CPACS LA Minor Flushing 5.2 cm [facility] LA Major Flushing 6.1 cm [facility] LA Area 2C 16.7 cm2 BS CV [facility] LA Area 4C 21.6 cm2 BS CV CPACS LA Volume MOD A2C 45 22 - 52 mL [facility]ACS LA Volume MOD A4C 61(A) 22 - 52 mL [facility] CPACS LA Volume BP 57(A) 22 - 52 mL [facility] LA Diameter 4.3 cm BS [...] MV E Wave Deceleration Time 215.0 ms [facility] CPACS MV A Velocity 1.16 m/s [facility] CV CPACS MV E Velocity 1.15 m/s [facility] CV CPACS MV Mean Gradient 4 mmHg [facility] CV CP[facility] MV VTI 41.7 cm [facility] CV CPACS MV Mean Velocity 0.9 m/s [facility] CV CPACS MV Max Velocity 1.3 m/s [facility] CV CPACS MV Peak Gradient 7 mmHg [facility] CP[facility] MV Area by VTI 2.1 cm2 [facility] CV CPACS RV Basal Dimension 2.9 cm [facility] CV CPACS TAPSE 2.0 >=1.7 cm BS CV CPACS TR Max Velocity 2.72 m/s [facility] CV CPACS TR Peak Gradient 30 mmHg [facility] CV CPACS Body Surface Area 2.05 m2 [facility] CV CPACS Fractional Shortening 2D 30 28 - 44 % [facility] CPACS LV ESV Index A4C 21 mL/m2 [facility] CV CPACS LV EDV Index A4C 48 mL/m2 [facility] CV CPACS LV ESV Index A2C 17 mL/m2 [facility] CV CPACS LV EDV Index A2C 38 mL/m2 [facility] CV CPACS LVIDd Index 2.38 cm/m2 BS CV CPACS LVIDs Index 1.66 cm/m2 [facility] CPACS LV RWT Ratio 0.48 [facility] CV CPACS LV Mass 2D 192.9(A) 67 - 162 g [facility] CV CPACS LV Mass 2D Index 100.0(A) 43 - 95 g/m2 [facility] CV CPACS MV E/A 0.99 [facility] CV CPACS E/E' Ratio (Averaged) 12.88 [facility] CV CPACS E/E' Lateral 10.45 [facility] CV CPACS E/E' Septal 15.31 [facility] CV CPACS LA Volume Index BP 30 16 - 34 ml/m2 [facility] CV CPACS LVOT Stroke Volume Index 45.1 mL/m2 [facility] CV CPACS LA Volume Index MOD A2C 23 16 - 34 ml/m2 BS CV CPACS LA Volume Index MOD A4C 32 16 - 34 ml/m2 [facility] CV CPACS LA Size Index 2.23 cm/m2 [facility] CV CPACS LA/AO Root Ratio 1.48 BS CV CPACS RA Volume Index A4C 9 mL/m2 [facility] CV CPACS Ao Root Index 1.50 cm/m2 [facility] CV CPACS AV Velocity Ratio 0.79 BS CV CPACS LVOT:AV VTI Index 0.79 BS CV CPACS RADHA/BSA VTI 1.3 cm2/m2 BS CV CPACS RADHA/BSA Peak Velocity 1.3 cm2/m2 BS CV CPACS MV:LVOT VTI Index 1.51 BS CV CPACS Est. RA Pressure 3 mmHg BS CV CPACS RVSP 33 mmHg BS CV CPACS EF Physician 60 % BS [...] of3 resultswithin the time period is included. [facility] Procalcitonin 0.06 0.00 - 0.09 ng/mL 05/02/2025 5:30 AM EDT [facility] Comment: Suspected Sepsis: <0.50 ng/mL Low likelihood [...] entered into the Change in Procalcitonin Calculator ([email or web address]) to determine the patient's Mortality Risk Prognosis In healthy neonates, plasma Procalcitonin (PCT) concentrations increase gradually after , reaching peak values at about 24 hours of age then decrease to normal values below 0.5 ng/mL by 48-72 hours of age. Blood BLOOD SPECIMEN / Unknown 05/02/2025 5:30 AM EDT 05/02/2025 6:08 AM EDT us Arash Barrientos MD CHEMISTRY ORDERABLES Final Resul t [facility] [address] [place] [address], [facility] [phone] [place] [id number], [facility] [phone] * (ABNORMAL) Basic Metabolic Panel w/ Reflex to MG (05/02/2025 5:30 AM EDT) Only the most recent of4 resultswithin the time period is included. Sodium 143 136 - 145 mmol/L 05/02/2025 5:30 AM [facility] Potassium 4.2 3.7 - 5.3 mmol/L 05/02/2025 5:30 AM [facility] Chloride 106 98 - 107 mmol/L 05/02/2025 5:30 AM [facility] CO2 25 20 - 31 mmol/L 05/02/2025 5:30 AM [facility] Anion Gap 12 9 - 16 mmol/L 05/02/2025 5:30 AM [facility] Glucose 105(H) 74 - 99 mg/dL 05/02/2025 5:30 AM [facility] BUN 16 8 - 23 mg/dL 05/02/2025 5:30 AM [facility] Creatinine 0.9 0.50 - 0.90 mg/dL 05/02/2025 5:30 AM [facility] Est, Glom Filt Rate 73 >60 mL/min/1.7 3m2 05/02/2025 5:30 AM EDT [facility] Comment: These results are not intended [...] 9 - 20 05/02/2025 5:30 AM EDT [facility] Calcium 10.2 8.6 - 10.4 mg/dL 05/02/2025 5:30 AM [facility] BLOOD SPECIMEN / Unknown 05/02/2025 5:30 AM EDT 05/02/2025 6:07 AM EDT us Champ Delatorre MD CHEMISTRY ORDERABLES Alba trevino Result [facility] [address] [phone] * (ABNORMAL) CBC auto differential (05/02/2025 5:30 AM EDT) Only the most recent of5 resultswithin the time period is included. WBC 9.7 3.5 - 11.3 k/uL 05/02/2025 5:30 AM [facility] RBC 4.14 3.95 - 5.11 m/uL 05/02/2025 5:30 AM T [facility] Hemoglobin 10.0(L) 11.9 - 15.1 g/dL 05/02/2025 5:30 AM [facility] Hematocrit 33.5(L) 36.3 - 47.1 % 05/02/2025 5:30 AM [facility] MCV 80.9(L) 82.6 - 102.9 fL 05/02/2025 5:30 AM [facility] MCH 24.2(L) 25.2 - 33.5 pg 05/02/2025 5:30 AM [facility] MCHC 29.9 28.4 - 34.8 g/dL 05/02/2025 5:30 AM [facility] RDW 16.0(H) 11.8 - 14.4 % 05/02/2025 5:30 AM [facility] Platelets 293 138 - 453 k/uL 05/02/2025 5:30 AM [facility] MPV 10.9 8.1 - 13.5 fL 05/02/2025 5:30 AM [facility] NRBC Automated 0.0 0.0 per 100 WBC 05/02/2025 5:30 AM [facility] Neutrophils % 49 36 - 65 % 05/02/2025 5:30 AM [facility] Lymphocytes % 41 24 - 43 % 05/02/2025 5:30 AM [facility] Monocytes % 5 3 - 12 % 05/02/2025 5:30 AM [facility] Eosinophils % 5(H) 1 - 4 % 05/02/2025 5:30 AM [facility] Immature Granulocytes % 0 0 % 05/02/2025 5:30 AM [facility] Basophils % 0 0 - 2 % 05/02/2025 5:30 AM [facility] Neutrophils Absolute 4.74 1.50 - 8.10 k/uL 05/02/2025 5:30 AM [facility] Lymphocytes Absolute 3.98(H) 1.10 - 3.70 k/uL 05/02/2025 5:30 AM [facility] Monocytes Absolute 0.49 0.10 - 1.20 k/uL 05/02/2025 5:30 AM [facility] Eosinophils Absolute 0.49(H) 0.00 - 0.44 k/uL 05/02/2025 5:30 AM [facility] Immature Granulocytes Absolute 0.00 0.00 - 0.30 k/uL 05/02/2025 5:30 AM EDT [facility] Basophils Absolute 0.00 0.0 - 0.2 k/uL 05/02/2025 5:30 AM EDT [facility] Morphology Normal 05/02/2025 5:30 AM EDT [facility] 05/02/2025 5:30 AM EDT 05/02/2025 6:07 AM EDT Champ Delatorre MD HEMATOLOGY ORDERABLES Fin al Result Performing Organization Address City/[facility]/ZIP Co de Phone Number [facility] [address] [phone] * (ABNORMAL) C-Reactive Protein (05/02/2025 5:30 AM EDT) Only the most recent of3 resultswithin the time period is included. CRP 19.2(H) 0.0 - 5.0 mg/L 05/02/2025 5:30 AM EDT [facility] BLOOD SPECIMEN / Unknown 05/02/2025 5:30 AM EDT 05/02/2025 6:07 AM EDT Arash Barrientos MD CHEMISTRY ORDERABLES Final Resul t Performing Organization Address [facility] Co de Phone Number [facility] [address] [place] [address] * EKG 12 Lead (04/30/2025 6:11 PM EDT) Only the most recent of2 resultswithin the time period is included. Ventricular Rate 127 BPM [facility] RADIOLOGY QRS Duration 78 ms [facility] RADIOLOGY Q-T Interval 304 ms [facility] H RADIOLOGY QTc Calculation (Bazett) 441 ms [facility] RADIOLOGY R Flushing 71 degrees [facility] T Flushing 80 degrees [facility] 04/30/2025 6:11 PM EDT Narrative [facility] RADIOLOGY - 05/02/2025 12:11 AM [...] on 05/02/2025 12:11:10 AM Procedure Note John Contrears MD - 05/02/2025 Atrial fibrillation with rapid [...] 7.326(L) 7.35 - 7.45 04/30/2025 11:37 AM [facility] pCO2, Arterial 52.7(H) 35 - 45 mmHg 04/30/2025 11:37 AM [facility] pO2, Arterial 68.8(L) 80.0 - 100.0 mmHg 04/30/2025 11:37 AM [facility] HCO3, Arterial 26.9(H) 22 - 26 mmol/L 04/30/2025 11:37 AM [facility] Positive Base Excess, Art 0.0 0.0 - 2.0 mmol/L 04/30/2025 11:37 AM [facility] O2 Sat, Arterial 92.3(L) 95 - 98 % 04/30/2025 11:37 AM [facility] Pt Temp 37.0 04/30/2025 11:37 AM EDT [facility] pH, Art, Temp Adj 7.326(L) 7.350 - 7.450 04/30/2025 11:37 [facility] pCO2, Art, Temp Adj 52.7(HH) 35.0 - 45.0 04/30/2025 11:37 [facility] pO2, Art, Temp Adj 68.8(L) 80.0 - 100.0 mmHg 04/30/2025 11:37 AM T [facility] O2 Device/Flow/% BIPAP 04/30/2025 11:37 AM [facility] Luis M Test YES 04/30/2025 11:37 AM [facility] Sample Site Right Brachial Artery 04/30/2025 11:37 AM [facility] FIO2 45 04/30/2025 11:37 AM [facility] 04/30/2025 11:3 7 AM EDT 04/30/2025 11:40 AM EDT us Champ Delatorre MD CHP ABG ORDER Final Res ult [facility] [address] [phone] * Urinalysis with Reflex to Culture (04/30/2025 7:50 AM EDT) Color, UA Yellow Yellow 04/30/2025 7:50 AM [facility] Turbidity UA Clear Clear 04/30/2025 7:50 AM T [facility] Glucose, Ur NEGATIVE NEGATIVE mg/dL 04/30/2025 7:50 AM [facility] Bilirubin, Urine NEGATIVE NEGATIVE 04/30/2025 7:50 AM [facility] Ketones, Urine NEGATIVE NEGATIVE mg/dL 04/30/2025 7:50 AM [facility] Specific [place], UA 1.015 1.010 - 1.020 04/30/2025 7:50 AM EDT [facility] Urine Hgb NEGATIVE NEGATIVE 04/30/2025 7:50 AM EDT [facility] pH, Urine 6.0 5.0 - 9.0 04/30/2025 7:50 AM EDT [facility] Protein, UA NEGATIVE NEGATIVE mg/dL 04/30/2025 7:50 AM EDT [facility] Urobilinogen, Urine Normal 0.0 - 1.0 EU/dL 04/30/2025 7:50 AM EDT [facility] Nitrite, Urine NEGATIVE NEGATIVE 04/30/2025 7:50 AM EDT [facility] Leukocyte Esterase, Urine NEGATIVE NEGATIVE 04/30/2025 7:50 AM T [facility] Urine 04/30/2025 7:50 AM EDT 04/30/2025 7:57 AM EDT us Arash Barrientos MD URINE ORDERABLES Final Result [facility] [address] [place] [address] * (ABNORMAL) Drug screen multi urine (04/30/2025 7:50 AM EDT) Amphetamine Screen, Ur NEGATIVE NEGATIVE 04/30/2025 7:50 AM EDT [facility] Comment:Cutoff: 1000 ng/mL Barbiturate Screen, Ur NEGATIVE NEGATIVE 04/30/2025 7:50 AM T [facility] Comment:Cutoff: 200 ng/ml Benzodiazepine Screen, Urine NEGATIVE NEGATIVE 04/30/2025 7:50 AM T [facility] Comment:Cutoff: 200 ng/ml Cocaine Metabolite, Urine NEGATIVE NEGATIVE 04/30/2025 7:50 AM T [facility] Comment:Cutoff: 300 ng/ml Methadone Screen, Urine NEGATIVE NEGATIVE 04/30/2025 7:50 AM EDT [facility] Comment:Cutoff: 300 ng/ml Opiates, Urine POSITIVE(A) NEGATIVE 7:50 AM EDT [facility] Comment: Cutoff: 300 ng/ml Note: The Opiate screen is not intended to detect Oxycodone. Phencyclidine, Urine NEGATIVE NEGATIVE 04/30/2025 7:50 AM EDT [facility] Comment:Cutoff: 25 ng/ml Cannabinoid Scrn, Ur NEGATIVE NEGATIVE 04/30/2025 7:50 AM EDT [facility] Comment:Cutoff: 50 ng/ml Oxycodone Screen, Ur NEGATIVE NEGATIVE 04/30/2025 7:50 AM EDT [facility] Comment:Cutoff: 100 ng/ml Fentanyl, Ur NEGATIVE NEGATIVE 04/30/2025 7:50 AM T [facility] Comment:Cutoff: 5 ng/ml Test Information This method is a screening test to detect only these drug classes as part of a medical workup. Confirmatory testing by another method should be ordered if clinically indicated. 04/30/2025 7:50 AM EDT [facility] Urine (Urine) 04/30/2025 7:5 0 AM EDT 04/30/2025 7:57 AM EDT Arash Barrientos MD URINE ORDERABLES Final Result [facility] [address] [phone] * DRUG SCREEN, PAIN (04/30/2025 7:50 AM EDT) [facility] Pain Management Drug Panel Interp, Urine See Note 04/30/2025 7:50 AM EDT [facility] Comment: (NOTE) NO DRUGS PROVIDED Please call [facility] [employer] Client Services at [phone] for Cut Roll Machine Offbearer interpretation if applicable. Alternatively, please consider the TARGETED DRUG PROF, OVEN STRIPPER/EMIT, UR ([id number]) which does not require medication information or provide compliance interpretation. INTERPRETIVE INFORMATION: Targeted drug profile Interp Interpretation depends on accuracy and completeness of patient medication information submitted by client. 6-Acetylmorphine, Ur Not Detected 04/30/2025 7:50 AM EDT [facility] Comment: (NOTE) INTERPRETIVE INFORMATION:6-acetylmorphine, U Positive Cutoff: 20 ng/mL Methodology: Mass Spectrometry 7-Aminoclonazepam, Urine Not Detected 04/30/2025 7:50 AM EDT [facility] Comment: (NOTE) INTERPRETIVE INFORMATION:7-Aminoclonazepam, U Positive Cutoff: 40 ng/mL Methodology: Mass Spectrometry Tidba-WM-Idkcrz, Urine Not Detected 04/30/2025 7:50 AM T [facility] Comment: (NOTE) INTERPRETIVE INFORMATION:Qjqux-LF-Byzddzfncl, U Positive Cutoff: 20 ng/mL Methodology: Mass Spectrometry Alprazolam, Urine Not Detected 04/30/2025 7:50 AM T [facility] Comment: (NOTE) INTERPRETIVE INFORMATION:Alprazolam, U Positive Cutoff: 40 ng/mL Methodology: Mass Spectrometry Amphetamine, Urine Not Detected 04/30/2025 7:50 AM EDT [facility] Comment: (NOTE) INTERPRETIVE INFORMATION:Amphetamine, U Positive Cutoff: 50 ng/mL Methodology: Mass Spectrometry Barbiturates, Urine Negative 04/30 7:50 AM T [facility] Comment: (NOTE) Presumptive negative by immunoassay. [...] Urine Not Detected 04/30/2025 7:50 AM EDT [facility] Comment: (NOTE) INTERPRETIVE INFORMATION:Buprenorphine, U Positive Cutoff: 5 ng/mL Methodology: Mass Spectrometry Carisoprodol, Urine Negative 04/30 7:50 AM EDT [facility] Comment: (NOTE) Presumptive negative by immunoassay. Testing by mass spectrometry is available on request. INTERPRETIVE INFORMATION: Carisoprodol Screen, U Positive Cutoff: 100 ng/mL Methodology: Immunoassay The carisoprodol immunoassay has cross-reactivity to carisoprodol and meprobamate. Clonazepam, Urine Not Detected 04/30/2025 7:50 AM EDT [facility] Comment: (NOTE) INTERPRETIVE INFORMATION:Clonazepam, U Positive Cutoff: 20 ng/mL Methodology: Mass Spectrometry Codeine, Urine Not Detected 04/30/2025 7:50 AM EDT [facility] Comment: (NOTE) INTERPRETIVE INFORMATION: Codeine, U Positive Cutoff: 40 ng/mL Methodology: Mass Spectrometry MDA, Urine Not Detected 04/30/2025 7:50 AM EDT [facility] Comment: (NOTE) INTERPRETIVE INFORMATION:MDA, U Positive Cutoff: 200 ng/mL Methodology: Mass Spectrometry Diazepam, Urine Not Detected 04/30/2025 7:50 AM EDT [facility] Comment: (NOTE) INTERPRETIVE INFORMATION:Diazepam, U Positive [...] Methadone, Urine Negative 04/30/20 7:50 AM EDT [facility] Comment: (NOTE) Presumptive negative by immunoassay. Testing by mass spectrometry is available on request. INTERPRETIVE INFORMATION: Methadone Screen, U Positive Cutoff: 150 ng/mL Methodology: Immunoassay Methamphetamine, Urine Not Detected 04/30/2025 7:50 AM EDT [facility] Comment: (NOTE) INTERPRETIVE INFORMATION:Methamphetamine, U Positive Cutoff: 200 ng/mL Methodology: Mass Spectrometry Methylphenidate Not Detected 04/30/2025 7:50 AM EDT [facility] Comment: (NOTE) INTERPRETIVE INFORMATION:Methylphenidate, U Positive Cutoff: 100 ng/mL Methodology: Mass Spectrometry Midazolam, Urine Not Detected 04/30/2025 7:50 AM EDT [facility] Comment: (NOTE) INTERPRETIVE INFORMATION:Midazolam, U Positive [...] AM EDT [facility] Comment: (NOTE) INTERPRETIVE INFORMATION:Nordiazepam, U Positive [...] Ur Not Detected 04/30/2025 7:50 AM EDT [facility] Comment: (NOTE) INTERPRETIVE INFORMATION:Phentermine, U Positive Cutoff: 100 ng/mL Methodology: Mass Spectrometry Nabrpbegev-S-Vazfam e, Urine Not Detected 04/30/2025 7:50 AM EDT [facility] Comment: (NOTE) INTERPRETIVE INFORMATION:Xkazgkmvch-x-Luzw, U Positive Cutoff: 200 ng/mL Methodology: Mass Spectrometry Tapentadol, Urine Not Detected 04/30/2025 7:50 AM EDT [facility] Comment: (NOTE) INTERPRETIVE INFORMATION:Tapentadol, U Positive Cutoff: 100 ng/mL Methodology: Mass Spectrometry Temazepam, Urine Not Detected 04/30/2025 7:50 AM EDT [facility] Comment: (NOTE) INTERPRETIVE INFORMATION:Temazepam, U Positive Cutoff: 50 ng/mL Methodology: Mass Spectrometry Tramadol, Urine Negative 7:50 AM EDT [facility] Comment: (NOTE) Presumptive negative by immunoassay. Testing by mass spectrometry is available on request. INTERPRETIVE INFORMATION:Tramadol Screen, U Positive Cutoff: 100 ng/mL Methodology: Immunoassay Zolpidem, Urine Not Detected 04/30/2025 7:50 AM [facility] Comment: (NOTE) INTERPRETIVE INFORMATION:Zolpidem, U Positive Cutoff: 20 ng/mL Methodology: Mass Spectrometry Drugs Expected, Ur .URINE 2024 7:50 AM [facility] Creatinine, Ur 62.5 20.0 - 400.0 mg/dL 04/30/2025 7:50 [facility], Hi Res, Ur See Below 04/30/2025 7:50 AM ED [facility] Comment: (NOTE) Methodology: Qualitative Enzyme Immunoassay [...] developed and its performance characteristics determined by [employer]. It has not been cleared or approved by the [place] Food and Drug Administration. This test was performed in a CLIA certified laboratory and is intended for clinical purposes. EER Hi Res Interp Ur See Note 04/30/2025 7:50 AM EDT [facility] Comment: (NOTE) Authorized individuals can access the [employer] Enhanced Report with an [employer] Connect account using the following link. Your local lab can assist you in obtaining the patient report if you don't have a Connect account. [email or web address] Performed By: [employer] [address] [place] [id number] [employer] [employer] Helper: Hans Jackson MD, PhD CLIA Number: [id number] Naloxone Urine Not Detected 04/30/2025 7:50 AM EDT [facility] Comment: (NOTE) INTERPRETIVE INFORMATION:Naloxone, U Positive Cutoff: 100 ng/mL Methodology: Mass Spectrometry Gabapentin Present 04/30/2025 7:50 AM EDT [facility] Comment: (NOTE) INTERPRETIVE INFORMATION:Gabapentin, U Positive Cutoff: 3,000 ng/mL Methodology: Mass Spectrometry Pregabalin Not Detected 04/30/2025 7:50 AM EDT [facility] Comment: (NOTE) INTERPRETIVE INFORMATION:Pregabalin, U Positive Cutoff: 3,000 ng/mL Methodology: Mass Spectrometry [id number], Urine Not Detected 04/30/2025 7:50 AM EDT [facility] Comment: (NOTE) INTERPRETIVE INFORMATION:Fijbo-[id number]-[id number], U Positive Cutoff: 20 ng/mL Methodology: Mass Spectrometry Zolpidem Metabolite (ZCA), Urine Not Detected 04/30/2025 7:50 AM EDT [facility] Comment: (NOTE) INTERPRETIVE INFORMATION:Zolpidem Metabolite, U Positive Cutoff: 100 ng/mL Methodology: Mass Spectrometry BLOOD SPECIMEN / Unknown 04/30/2025 7:50 AM EDT 04/30/2025 7:57 AM EDT Arash Barrientos MD CHEMISTRY ORDERABLES Final Resul t Performing Organization Address [facility]/ZIP Co de Phone Number [facility] [address] [place] [address] [facility] [address] [place], [place] [id number] [place] [address] * (ABNORMAL) Microscopic Urinalysis (04/30/2025 7:50 AM EDT) WBC, UA 0 TO 2 0 - 5 /HPF 04/30/2025 7:50 AM EDT [facility] RBC, UA 0 TO 2 0 - 2 /HPF 04/30/2025 7:50 AM EDT [facility] Epithelial Cells, UA 0 TO 2 0 - 25 /HPF 04/30/2025 7:50 AM EDT [facility] Bacteria, UA 1+(A) None 04/30/2025 7:50 AM EDT [facility] 04/30/2025 7:50 AM EDT 04/30/2025 7:57 AM EDT Arash Barrientos MD URINE ORDERABLES Final Result Performing Organization Address [facility] de Phone Number [facility] [address] [place] [address] * (ABNORMAL) Blood Gas, Venous (04/30/2025 6:40 AM EDT) Only the most recent of3 resultswithin the time period is included. pH, Vicente 7.326 7.32 - 7.42 04/30/2025 6:40 AM EDT [facility] pCO2, Vicente 52.6 39 - 55 mm Hg 04/30/2025 6:40 AM EDT [facility] PO2, Vicente 50.9(H) 30.0 - 50.0 mm Hg 04/30/2025 6:40 AM [facility] HCO3, Venous 26.9 24.0 - 30.0 mmol/L 04/30/2025 6:40 AM [facility] Negative Base Excess, Vicente 0.1 0.0 - 2.0 mmol/L 04/30/2025 6:40 AM [facility] O2 Sat, Vicente 82.9 60.0 - 85.0 % 04/30/2025 6:40 AM [facility] Pt Temp 37.0 04/30/2025 6:40 AM [facility] pH, Vicente, Temp Adj 7.326 7.320 - 7.420 04/30/2025 6:40 AM [facility] pCO2, Vicente, Temp Adj 52.6 39.0 - 55.0 mmHg 04/30/2025 6:40 AM [facility] pO2, Vicente, Temp Adj 50.9(H) 30.0 - 50.0 mmHg 04/30/2025 6:40 AM [facility] O2 Device/Flow/% BIPAP 04/30/2025 6:40 AM [facility] Luis M Test NOT APPLICABLE 04/30/2025 6:40 AM [facility] FIO2 45 04/30/2025 6:40 AM [facility] 04/30/2025 6:40 AM EDT 04/30/2025 6:43 AM EDT us Champ Delatorre MD CHEMISTRY ORDERABLES Alba trevino Result [facility] [address] [id number] [phone] * XR CHEST PORTABLE (04/30/2025 6:27 AM [...] - 125 pg/mL 04/30/2025 4:55 AM EDT [facility] Blood BLOOD SPECIMEN / Unknown 04/30/2025 4:55 AM EDT 04/30/2025 6:42 AM EDT us Arash Barrientos MD CHEMISTRY ORDERABLES Final Resul t [facility] [address] [id number] [phone] * COVID-19, Rapid (04/28/2025 5:35 PM EDT) Specimen Description .NASOPHARYN GEAL SWAB 04/28/2025 5:35 PM EDT [facility] SARS-CoV-2, Rapid Not Detected Not Detected 04/28/2025 5:35 PM EDT [facility] Comment: Rapid NAAT: The specimen is [...] MICROBIOLOGY - GENERAL ORDERABLE S Final Result [facility] [address] [place], [place] [address] [phone] * (ABNORMAL) Respiratory Panel, Molecular, with COVID-19 (Restricted: peds pts or suitable admitted adults) (04/28/2025 5:35 PM EDT) Specimen Description .NASOPHARYN GEAL SWAB 04/28/2025 5:35 PM EDT [facility] Adenovirus PCR Not Detected Not Detected 04/28/2025 5:35 PM EDT [facility] Coronavirus 229E PCR Not Detected Not Detected 04/28/2025 5:35 PM EDT [facility] [employer] Coronavirus HKU1 PCR Not Detected Not Detected 04/28/2025 5:35 PM EDT [facility] Coronavirus NL63 PCR Not Detected Not Detected 04/28/2025 5:35 PM EDT [facility] Coronavirus OC43 PCR Not Detected Not Detected 04/28/2025 5:35 PM EDT [employer] SARS-CoV-2, PCR Not Detected Not Detected 04/28/2025 5:35 PM EDT [facility] [employer] Human Metapneumovirus PCR Not Detected Not Detected 04/28/2025 5:35 PM EDT [facility] [employer] Rhino/Enterovirus PCR Not Detected Not Detected 04/28/2025 5:35 PM EDT [facility] [employer] Influenza A by PCR Not Detected Not Detected 04/28/2025 5:35 PM EDT [facility] [employer] Influenza B by PCR Not Detected Not Detected 04/28/2025 5:35 PM EDT [employer] Parainfluenza 1 PCR Not Detected Not Detected 04/28/2025 5:35 PM EDT [employer] Parainfluenza 2 PCR Not Detected Not Detected 04/28/2025 5:35 PM EDT [facility] [employer] Parainfluenza 3 PCR DETECTED(A) Not Detected 04/28/2025 5:35 PM EDT [facility] [employer] Parainfluenza 4 PCR Not Detected Not Detected 04/28/2025 5:35 PM EDT [employer] Resp Syncytial Virus PCR Not Detected Not Detected 04/28/2025 5:35 PM EDT [employer] Bordetella parapertussis by PCR Not Detected Not Detected 04/28/2025 5:35 PM EDT [facility] B Pertussis by PCR Not Detected Not Detected 04/28/2025 5:35 PM EDT [employer] Chlamydia pneumoniae By PCR Not Detected Not Detected 04/28/2025 5:35 PM EDT [employer] Mycoplasma pneumo by PCR Not Detected Not Detected 04/28/2025 5:35 PM EDT [facility] Comment:Performed by [employer] exed nucleic acid assay. Nasal swab NASOPHARYNGEAL SWAB / Unknown 04/28/2025 5:35 PM EDT 04/29/2025 4:21 AM EDT Evie Bustamante ZINC MINER - RESIDENCE HALL DIRECTOR MICROBIOLOGY - GENERAL ORDERABLES Final Result [facility] [address] [place] [address], [facility] [phone] [address], [facility] [phone] * Rapid influenza A/B antigens (04/28/2025 5:35 PM EDT) Pathologist [facility] Flu A Antigen NEGATIVE NEGATIVE 04/28/2025 5:35 PM EDT [facility] Comment:for Influenza A Anti gen Flu B Antigen NEGATIVE NEGATIVE 04/28/2025 5:35 PM EDT [facility] Comment:for Influenza B Anti gen. NASOPHARYNGEAL SWAB / Unknown 04/28/2025 5:35 PM EDT 04/28/2025 5:37 PM EDT Chioma Link MD MICROBIOLOGY - GENERAL ORDERABLE S Final Result [facility] [address] [place], [place] [address] [phone] * D-Dimer, Quantitative (04/28/2025 5:25 PM EDT) [facility] D-Dimer, Quant 0.50 0.00 - 0.59 ug/mL FEU 04/28/2025 5:25 PM EDT [facility] Comment: When combined with a low [...] Link MD HEMATOLOGY ORDERABLES Final Resu lt [facility] [address] [phone] * (ABNORMAL) Hepatic Function Panel (04/28/2025 5:17 PM EDT) Albumin 4.3 3.5 - 5.2 g/dL 04/28/2025 5:17 PM EDT [facility] Alkaline Phosphatase 110(H) 35 - 104 U/L 04/28/2025 5:17 PM T [facility] ALT 18 10 - 35 U/L 04/28/2025 5:17 PM EDT [facility] AST 26 10 - 35 U/L 04/28/2025 5:17 PM EDT [facility] Total Bilirubin 0.3 0.00 - 1.20 mg/dL 04/28/2025 5:17 PM EDT [facility] Bilirubin, Direct <0.2 0.00 - 0.30 mg/dL 04/28/2025 5:17 PM T [facility] Bilirubin, Indirect Can not be calculated 0.0 - 1.0 mg/dL 04/28/2025 5:17 PM EDT [facility] Total Protein 7.5 6.6 - 8.7 g/dL 04/28/2025 5:17 PM T [facility] Albumin/Globuli n Ratio 1.4 1.0 - 2.5 04/28/2025 5:17 PM T [facility] Blood BLOOD SPECIMEN / Unknown 04/28/2025 5:17 PM EDT 04/28/2025 5:27 PM EDT us Chioma Link MD CHEMISTRY ORDERABLES Final Resul t Performing Organization Address City/[facility]/ZIP Co de Phone Number [facility] [address] [place] [address] * Troponin (04/28/2025 5:15 PM EDT) Troponin, High Sensitivity 9 0 - 14 ng/L 04/28/2025 5:15 PM EDT [facility] Comment:High Sensitivity Tro ponin values cannot be compared with other Troponin methodologies. Blood BLOOD SPECIMEN / Unknown 04/28/2025 5:15 PM EDT 04/28/2025 5:25 PM EDT us Chioma Link MD CHEMISTRY ORDERABLES Final Resul t Performing Organization Address [facility] Co de Phone Number [facility] [address] [place] [address] * (ABNORMAL) Basic Metabolic Panel (04/28/2025 5:15 PM EDT) Pathologist [facility] Sodium 141 136 - 145 mmol/L 04/28/2025 5:15 PM EDT [facility] Potassium 4.6 3.7 - 5.3 mmol/L 04/28/2025 5:15 PM EDT [facility] Chloride 105 98 - 107 mmol/L 04/28/2025 5:15 PM EDT [facility] CO2 26 20 - 31 mmol/L 04/28/2025 5:15 PM EDT [facility] Anion Gap 10 9 - 16 mmol/L 04/28/2025 5:15 PM EDT [facility] Glucose 84 74 - 99 mg/dL 04/28/2025 5:15 PM EDT [facility] BUN 19 8 - 23 mg/dL 04/28/2025 5:15 PM EDT [facility] Creatinine 1.0(H) 0.50 - 0.90 mg/dL 04/28/2025 5:15 PM EDT [facility] Nataly Brownt Rate 64 >60 mL/min/1.7 3m2 04/28/2025 5:15 PM EDT [facility] Comment: These results are not intended [...] 9 - 20 04/28/2025 5:15 PM EDT [facility] Calcium 9.2 8.6 - 10.4 mg/dL 04/28/2025 5:15 PM EDT [facility] Blood BLOOD SPECIMEN / Unknown 04/28/2025 5:15 PM EDT 04/28/2025 5:25 PM EDT Chioma Link MD CHEMISTRY ORDERABLES Final Resul t [facility] [address] [place] [address] * (ABNORMAL) Hemoglobin A1C (03/07/2025 7:50 AM EDT) Hemoglobin A1C 6.4(H) 4.0 - 6.0 % 03/07/2025 7:50 AM EDT [facility] Estimated Avg Glucose 137 mg/dL 03/07/2025 7:50 AM EDT [facility] Comment: The ADA and AACC recommend providing the estimated average glucose result to permit better patient understanding of their HBA1c result. 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
--- OUTSIDE RECORDS SUMMARY | 2025-07-24 11:52 | XMS_ITS | Encounter Summary ---
Author Organization [facility] Address [address] [place] [address] Care Team Providers Care Fire Watcher Name Role Phone Rochelle Jose MD Primary Care Provider [phone] Reason for Visit * Reason Comments Medication Refill Encounter Details Date Type Department Care Team ([facility] Contact Info) Description 07/15/2025 Refill [facility] [address] [place] [address] Nichole Anton, [address] [place] [address] Neuropathy of right lower extremity Social History [...] as of this encounter Plan of Treatment Upcoming Encounters Date Type Department Care Team (Late Contact Info) Description 08/11/2025 11:45 AM EDT Telemedicine [facility] [address] [place] [address] Nichole Anton DO [address] [place] [address] documented as of this encounter Visit Diagnoses Diagnosis Neuropathy of right lower extremity documented in this encounter Care Teams Fire Watcher Relationship Specialty Start Date End Date Rochelle Jose MD PCP - General Family Medicine 03/20/23 documented as of this encounter
--- OUTSIDE RECORDS SUMMARY | 2025-07-24 11:53 | XMS_ITS | Encounter Summary ---
Author Organization [facility] Address [address] [place] [address] Care Team Providers Care Brine Tank Operator Name Role Phone Rochelle Jose MD Primary Care Provider [phone] Reason for Visit * Reason Comments Medication Refill Encounter Details Date Type Department Care Team ([facility] Contact Info) Description 07/04/2025 Refill [facility] [address] [place] [address] Nichole Anton DO [address] [place] [address] Cocaine use disorder Social History Tobacco Use Types Packs/Day Years [...] Upcoming Encounters Date Type Department Care Team ([facility] Contact Info) Description 08/11/2025 11:45 AM EDT Telemedicine [facility] [address] [place] [address] Nichole Anton DO [address] [place] [address] documented as of this encounter Visit Diagnoses Diagnosis Cocaine use disorder documented in this encounter Care Teams Brine Tank Operator Relationship Specialty Start Date End Date Rochelle Jose MD PCP - General Family Medicine 03/20/23 documented as of this encounter
--- OUTSIDE RECORDS SUMMARY | 2025-07-24 11:53 | XMS_ITS | Patient Health Record ---
Author Organization [facility] Servic es Address [address] [place] [address] Care Team Providers Care Finished Cigar Maker Name Role Phone Reginaldo Hanley Primary Care Provider Karen Fidelia Unavailable [phone] Herminia Gonzalez Unavailable [phone] Allergies Allergen (clinical drug ingredient) Drug/Non Drug Allergy documented on EMR Reaction Allergy Type Onset Date Status Information temporarily unavailable IV dye (uncoded) anaphylaxis Allergy Active Information temporarily unavailable rifampton (uncoded) hives Allergy Active Information temporarily unavailable shellfish (uncoded) hives Allergy Active Information temporarily unavailable some steroids (uncoded) anaphylaxis Allergy Active Information temporarily unavailable Isoniazid anaphylaxis Drug Allergy Active Information temporarily unavailable Darvocet N-100 # 30 anaphylaxis Drug Allergy Active Information temporarily unavailable ASA rash Drug Allergy Active Information temporarily unavailable Sulfa (uncoded) anaphylaxis Allergy Active Information temporarily unavailable PCN (uncoded) anaphylaxis Allergy Active Information temporarily unavailable Ultram anaphylaxis Drug Allergy Active Information temporarily unavailable Lisinopril anaphylaxis Drug Allergy Active Information temporarily unavailable Rizatriptan hives Drug Allergy Active Results Component Value Reference Range Notes Hemoglobin A1c Reviewed date:09/14/2024 03:32:05 PM Interpretation:6.1% Performing Lab: Notes/Report: 6.1% Hemoglobin A1c 6.1% 5 - 7.9 % Hemoglobin A1c Reviewed date:06/07/2025 02:41:58 PM Interpretation:6.7% Performing Lab: Notes/Report: 6.7% Hemoglobin A1c 6.7% 5 - 7.9 % Dipstick and Microscopic Reviewed date:08/28/2024 11:17:57 AM Interpretation:+ LE Performing Lab:, [facility], [address] [facility] Notes/Report: Reason for Exam Acute cystitis without hematuria Name Collection Type:: Voided Color,Urine Light-Yellow Yellow Appearance,Urine Clear Clear Specificy [place],Urine 1.009 1.001-1.030 pH,Urine 6.5 5.0-9.0 Leukocyte Esterase,Urine 2+ Negative Nitrite,Urine Negative Negative Protein,Urine Negative Negative Glucose,Urine (UA) Normal Normal Ketones,Urine Negative Negative Urobilinogen,Urine Normal Normal Bilirubin,Urine Negative Negative Occult Blood,Urine Negative Negative RBC,Urine 1-2 0-4 WBC,Urine 3-4 0-4 Squamous Epithelial Cell,Urine 3-4 0-2 Bacteria,Urine Rare None Seen Hyaline Casts,Urine None 0-8 Urinalysis automated Reviewed date:08/27/2024 11:46:46 AM Interpretation:Normal Performing Lab: Notes/Report: Normal Urine-Color yellow Appearance clear Specific [place] 1.010 pH 6.0 Glucose NEG Protein NEG Occult Blood NEG Bilirubin NEG Urobilinogen,Semi-Qn 3.5 (NEG) Nitrite, Urine NEG Ketones NEG WBC Esterase NEG Urine Culture Reviewed date:08/30/2024 01:17:09 PM Interpretation: Performing Lab:, [facility], [address] [facility] Notes/Report: Reason for Exam Acute cystitis without hematuria Urine Urinalysis automated Reviewed date:12/20/2024 10:44:16 AM Interpretation: Performing Lab: Notes/Report: Urine-Color YELLOW Appearance CLEAR Specific [place] 1.010 pH 6.0 Glucose NEG Protein NEG [...] OXY NEG BUP NEG Hemoglobin A1c Reviewed date:01/18/2025 09:36:20 AM Interpretation: Performing Lab: Notes/Report: Hemoglobin A1c 6.3% 5 - 7.9 % Reason For Referral Reason 09/22 CURT referra l for elective cholecystectomy. Diagnosis 1 Symptomatic cholelit hiasis (K80.20) Referral Organization [facility] Referring Provider First Name Reginaldo Referring Provider Last Name Talon Referring Provider [facility] Referred Provider DOYLE HEATH Referred Provider Specialty General Surg alysa Referral Priority Routine Reason NEW REFERRAL PLACED Pt would like a different pain management. She is displeased with her treatment at her current one. Diagnosis 1 Lumbago with sciatic a, right side (M54.41) Referral Organization [facility] Referring Provider First Name Reginaldo Referring Provider Last Name Talon Referring Provider [facility] Referred Provider [facility], MANAG EMENT Referred Provider Specialty Pain Medicin e General Notes Nila Hopkins 2024 08:06:38 AM >PT WAS D/C FROM [facility] Referral Priority Routine Reason PT N/S APPT DO NOT SEND TO DR GUTIERRES!!!! She would like to see pain management in [place]. Diagnosis 1 Neuropathic pain (M7 9.2) Referral Organization [facility] Referring Provider First Name Reginaldo Referring Provider Last Name Talon Referring Provider [facility] Referred Provider [facility] [place] [facility] Referred Provider Specialty Pain Medicin e Referral Priority Routine Reason [place] DECLIN[place] - LVM WITH PT 06/10; [facility] [place] [facility] [place] DUE TO N/S Pt would like one in or near [place] for her low back pain and chronic pain. Diagnosis 1 Other chronic pain ( G89.29) Referral Organization [facility] Referring Provider First Name Reginaldo Referring Provider Last Name Talon Referring Provider [facility] Referred Provider Specialty Pain Medicin e General Notes Nlia Hopkins 2024 08:30:38 AM >[facility] [phone] Referral Priority Routine Medications Medication SIG (Take, Route, Frequency, Duration) Notes Start Date End Date Status Alcohol Prep 70 % USE TO STERILIZE SKI N FOR TESTING BLOOD SUGAR THREE TIMES A DAY *NEW PRESCRIPTION REQUEST*; Duration: 3 Active Levalbuterol HCl 0.63 MG/3ML 3 mL as needed Inhalation every 6 hours; Duration: 30 days 06/07/2025 Active Promethazine HCl 12.5 MG 1 tablet as needed Orally every 6 hrs; Duration: 30 day(s) Active Propranolol HCl ER 160 MG TAKE ONE (1) CAPSULE BY MOUTH ONCE DAILY *NEW PRESCRIPTION REQUEST*; Duration: 90 Active Walker - as directed; Duratio n: 365 days 06/07/2025 Active EPINEPHrine 0.3 MG/0.3ML Inject one syringe in the outer thigh as needed for allergic reaction; Max daily dose 2 (TWO) syringes Injection Active OneTouch Delica Plus [id number] - USE TO TEST BLOOD SUGAR 3 TIMES DAILY *NEW PRESCRIPTION REQUEST*; Duration: 90 Active Gabapentin 600 MG 1 tablet Orally Once a day; Duration: 30 day(s) 03/15/2025 Active True Metrix Air Glucose Meter - as directed; Duration: 365 days 06/18/2025 Active RA Alcohol Swabs 70 % use as directed da beverly TO CHECK SUGARS 30; Duration: 30 days Active DULoxetine HCl 40 MG take 1 capsule by m outh twice a day Orally Once a day; Duration: 30 days Not-Taking Omeprazole 40 MG take 1 capsule by mo uth once daily; Duration: 30 Active amLODIPine Besylate 10 MG take 1 tablet by mouth once daily Orally Once a day; Duration: 30 days Active OneTouch Ultra - USE TO TEST BLOOD ROBERT[place] GAR 3 TIMES DAILY *NEW PRESCRIPTION REQUEST*; Duration: 100 Active Lancets - as directed fingerti p three times a day; Duration: 30 days E11.9 Active Aspercreme Lidocaine 4 % APPLY TO AFFECTED AREA(S) TOPICALLY NEEDED *NEW PRESCRIPTION REQUEST*; Duration: 76 Active test strips Freestyle Lite as directed externally twice a day; Duration: 90 days 06/23/2014 10/30/2025 Active hydrOXYzine Pamoate 50 MG 1 capsule at bedtime as needed Orally every eight hours; Duration: 90 days As needed for anxiety attacks 09/14/2024 Active Rollator Ultra-Light - as directed; Dura tion: 365 days 07/01/2025 Active Melatonin 3 MG TAKE 3 TABLETS BY MO UTH EVERY NIGHT AT BEDTIME NEEDED FOR SLEEP *NEW PRESCRIPTION REQUEST*; Duration: 90 Active Fluticasone Propionate 50 MCG/ACT instill 1 spray into each nostril twice a day if needed Nasally twice a day; Duration: 90 days Active EPINEPHrine 0.3 MG/0.3ML INJECT DIRECTED NEEDED FOR ALLERGIC REACTION *NEW PRESCRIPTION REQUEST*; Duration: 6 Active Glucometer - place 1 drop of bloo d externally TID 12/07/2021 Active Atorvastatin Calcium 80 MG TAKE 1 TABLET BY MOUTH EVERY DAY *NEW PRESCRIPTION REQUEST*; Duration: 90 Active Symbicort 80-4.5 MCG/ACT INHALE TWO (2) PUFFS BY MOUTH TWICE DAILY *NEW PRESCRIPTION REQUEST*; Duration: 90 Active Nystatin [id number] UNIT/GM APPLY TO AFFECTE D AREA(S) THREE TIMES A DAY *NEW PRESCRIPTION REQUEST*; Duration: 30 Active metFORMIN HCl ER 750 MG TAKE 1 TABLET BY MOUTH EVERY DAY WITH EVENING MEAL *NEW PRESCRIPTION REQUEST*; Duration: 90 Active Losartan Potassium 50 MG TAKE 1 TABLET BY MOUTH EVERY DAY *NEW PRESCRIPTION REQUEST*; Duration: 90 Active Immunizations Vaccine Route Administration Date Status [...] Unknown 07/10/2018 Administered PNEUMOVAX 23 given at [facility]. AFLURIA QUAD given at [facility]. xxxxDO NOT USE-Pneumovax 23 Unknown 07/10/2018 Administered PNEUMOVAX 23 giv en at [facility]. Social History Tobacco Use: Social History Observation Description Date Details (start date - stop date) Current Smoker NA - NA Sex Assigned At : Social History Observation Description Sex Assigned At Female PRAPARE Question Answer Notes Date Completed/Updated: 12/20/2024 What is your current housing situation? I have h ousing Are you worried about losing your housing? No What is the highest level of school that you have finished? High school diploma or GED What is your current work situation? Oth erwise unemployed but not seeking work (ex. 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 Stress is when someone feels tense, nervous, anxious, or cant sleep at night because their mind is troubled Not at all In the past year have you sp ent more than 2 nights in a row in a long-term, fci, residential center, or juvenile correctional facility? No Are [...] on one occasion in the past year? Never (0 point) Points 1 Interpretation Negative Tobacco Control (Standard) Question Answer [...] Problem Status W/U Status Risk Notes Problem Information temporarily unavailable Type 2 diabetes mellitus with unspecified complications (E11.8) Active confirmed Problem Information temporarily unavailable Morbid (severe) obesity due to excess calories (E66.01) Active confirmed Problem Information temporarily unavailable Hypercalcemia (E83.52) Active confirmed Problem Information temporarily unavailable Nicotine dependence, unspecified, uncomplicated (F17.200) Active confirmed Problem Information temporarily unavailable Other chronic postprocedural pain (G89.28) Active confirmed Problem Information temporarily unavailable Other chronic pain (G89.29) Active confirmed Problem Information temporarily unavailable Essential (primary) hypertension (I10) Active confirmed Problem Information temporarily unavailable Lumbago with sciatica, right side (M54.41) Active confirmed Problem Information temporarily unavailable Lumbago with sciatica, left side (M54.42) Active confirmed Problem Information temporarily unavailable Low back pain (M54.5) Active confirmed Problem Information temporarily unavailable Hyperlipidemia (E78.5) Active confirmed Problem Information temporarily unavailable Anxiety (F41.9) Active confirmed Problem Information temporarily unavailable Asthma (J45.909) Active confirmed Problem Information temporarily unavailable Neuropathy (G62.9) Active confirmed Problem Information temporarily unavailable Urinary frequency (R35.0) Active confirmed Problem Information temporarily unavailable Other chronic pain (G89.29) Active confirmed Problem Information temporarily unavailable Sinusitis, unspecified chronicity, unspecified location (J32.9) Active confirmed Problem Information temporarily unavailable Migraine without status migrainosus, not intractable, unspecified migraine type (G43.909) Active confirmed Problem Information temporarily unavailable Pulmonary emphysema, unspecified emphysema type (J43.9) Active confirmed Problem Information temporarily unavailable Gastroesophageal reflux disease, esophagitis presence not specified (K21.9) Active confirmed Problem Information temporarily unavailable Insomnia, unspecified type (G47.00) Active confirmed Problem Information temporarily unavailable Tooth infection (K04.7) Active confirmed Problem Information temporarily unavailable Xerostomia (K11.7) Active confirmed Problem Information temporarily unavailable Difficulty walking (R26.2) Active confirmed Problem Information temporarily unavailable Chronic sinusitis, unspecified location (J32.9) Active confirmed Problem Information temporarily unavailable Sciatica of right side (M54.31) Active confirmed Problem Information temporarily unavailable Chronic idiopathic constipation (K59.04) Active confirmed Problem Information temporarily unavailable Callous ulcer, limited to breakdown of skin (L98.491) Active confirmed Problem Information temporarily unavailable Bipolar 1 disorder, mixed, moderate (F31.62) Active confirmed Problem Information temporarily unavailable Major depressive episode (F32.9) Active confirmed Problem Information temporarily unavailable Bipolar 2 disorder (F31.81) Active confirmed Problem Information temporarily unavailable Serum calcium elevated (E83.52) Active confirmed Problem Information temporarily unavailable Stenosis of left carotid artery (I65.22) Active confirmed Problem Information temporarily unavailable Type 2 diabetes mellitus without complication, unspecified whether fdc insulin use (E11.9) Active confirmed Problem Information temporarily unavailable Alcohol use disorder, mild, abuse (F10.10) Active confirmed Problem Information temporarily unavailable Atherosclerosis of both carotid arteries (I65.23) Active confirmed Problem Information temporarily unavailable Gait difficulty (R26.9) Active confirmed Problem Information temporarily unavailable Persistent depressive disorder (F34.1) Active confirmed Problem Information temporarily unavailable Body mass index [BMI] 40.0-44.9, adult (Z68.41) Active confirmed Problem Information temporarily unavailable Symptomatic cholelithiasis (K80.20) Active confirmed Vital Signs Heart Rate 82 /min 07/01/2025 Temperature 98.1 degrees Fahrenheit 07/01/2025 Respiratory Rate 20 /min 07/01/2025 Blood pressure diastolic 72 mm Hg 07/01/2025 Oximetry 91 % 07/01/2025 Height 59 in 07/01/2025 Blood pressure systolic 144 mm Hg 07/01/2025 Weight 230 lbs 07/01/2025 BMI 46.45 kg/m2 07/01/2025 Encounters Encounter Location Date Provider Diagnosis [place] [place] [address] 07/30/2024 Reginaldo Hanley Anxiety F41.9 [address] [place] [address] 08/03/20[facility] [address] [place] [address] 08/17/2024 Reginaldo Hanley Intertriginous candidiasis B37.2 and Type 2 diabetes mellitus with unspecified complications E11.8 [address] [place] [address] 08/[facility] lice B85.0 [address] [place] [address] 08/23/2024 [place] [address] [place] [address] 08/27/2024 Hair Paul[facility]amaal Symptomatic cholelithiasis K80.20 [address] [place] [address] 09/03/2024 Hair Vincjamaal Nausea and vomiting, unspecified vomiting type R11.2 [place] [address] [place] [address] 09/09/2024 [place] [address] [place] [address] 09/27/2024 Hairandrew Hanley Nausea and vomiting, unspecified vomiting type R11.2 [place] [address] [place] [address] 10/12/2024 Reginaldo Hanley Anxiety F41.[address] [place] [address] [place] [address] 10/20/2024 [place] [address] [place] [address] 10/28/2024 Hair Vincent Nausea and vomiting, unspecified vomiting type R11.[address] [place] [address] [place] [address] 10/29/2024 [place] [address] [place] [address] 11/04[facility] M54.5 [facility] [address] [place] [address] 11/16/2024 [place] [address] [place] [address] 11/18/2024 [place] [address] [place] [address] 12/03/2024 [place] [address] [place] [address] 12/13/2024 [facility] [address] [place] [address] 01/03/2025 [facility] [address] [place] [address] 01/24/2025 [facility] Obesity, class [address] [place] [address] 01/24/2025 [place] [address] [place] [address] 01/27/2025 [place] [address] [place] [address] 01/31/2025 [place] [address] [place] [address] 02/01/2025 [place] [address] [place] [address] 03/15/2025 [facility], unspecifie d type G47.00 and Anxiety F41.9 [facility] [address] [place] [address] 03/15/2025 [facility] An[facility] F41.9 [facility] [address] [place] [address] 04/05/2025 [facility] Intertriginous candidiasis B37.2 [facility] [address] [place] [address] 06/14/2025 [facility] [address] [place] [address] 06/16/2025 [facility] [address] [place] [address] 06/17/2025 Reginaldo Hanley Pulmonary emphysema, unspecified emphysema type J43.9 [facility] [address] [place] [address] 06/17/2025 [facility] [address] [place] [address] 06/20/2025 [facility] [address] [place] [address] 06/22/2025 [facility] [address] [place] [address] 06/24/2025 [facility] [address] [place] [address] 06/24/2025 [facility] [address] [place] [address] 07/04/2025 [facility] [address] [place] [address] 07/04/2025 [facility] [address] [place] [address] 07/06/2025 [place] [address] [place] [address] 07/12/2025 [facility] [address] [place] [address] 08/16/2024 Reginaldo Hanley Nausea and vomiting, unspecified vomiting type R11.2 ; Diarrhea of presumed infectious origin R19.7 ; Head lice B85.0 ; Dehydration E86.0 and Right upper quadrant abdominal pain R10.11 [facility] [address] [place] [address] 08/27/2024 Reginaldo Hanley Symptomatic cholelithiasis K80.20 ; Head lice B85.0 ; Acute cystitis without hematuria N30.00 ; Difficulty walking R26.2 [address] G[address] R26.9 [facility] [address] [place] [address] 09/14/2024 Reginaldo Hanley Anxiety F41.9 ; Intertriginous candidiasis B37.2 ; Chest congestion R09.89 ; Head lice B85.0 ; Nausea and vomiting, unspecified vomiting type R11.2 ; Essential (primary) hypertension I10 and Type 2 diabetes mellitus with unspecified complications E11.8 [facility] [address] [place] [address] 11/04/2024 Reginaldo Hanley Type 2 diabetes mellitus with unspecified complications E11.8 ; Pain management contract signed Z02.89 ; Intertriginous candidiasis B37.2 ; Anxiety F41.9 ; Sciatica of right side M54.31 and Low back pain M54.5 [facility] [address] [place] [address] 12/20/2024 Reginaldo Hanley Pain management contract broken Z91.148 ; Pain in right hip M25.551 ; Pain in left hip M25.552 ; Lumbago with sciatica, right side M54.41 ; Lumbago with sciatica, left side M54.42 ; Other chronic pain G89.29 ; Essential hypertension I10 ; Right flank pain R10.9 and Increased urinary frequency R35.0 [facility] [address] [place] [address] 01/18/2025 Reginaldo Hanley Type 2 diabetes mellitus [...] depressive disorder F34.1 and Essential hypertension I10 [facility] [address] [place] [address] 03/15/2025 Herminia Gonzalez Lack of access to transportation Z91.89 [facility] [address] [facility] [place] [address] 01/18/2025 Herminia Gonzalez Lack of access to transportation Z91.89 [facility] [address] [place] [address] 12/20/2024 Herminia Gonzalez Lack of access to transportation Z91.89 [facility] [address] [place] [address] 08/27/2024 Herminia mehrdadCarlosbeckacristina Lack of access to transportation Z91.89 [facility] [address] [place] [address] 08/16/2024 Herminia Rosiecristina Lack of access to transportation Z91.89 [facility] [address] [place] [address] 03/15/2025 Reginaldo Hanley Neuropathic pain M79 .2 ; Neuropathy G62.9 ; Asthma J45.909 ; Type 2 diabetes mellitus with unspecified complications E11.8 and Screening due Z13.9 [facility] [address] [place] [address] 06/07/2025 Reginaldo Hanley Type 2 diabetes mellitus with unspecified complications E11.8 ; Low back pain M54.5 ; Sciatica of right side M54.31 ; Gait difficulty R26.9 ; Other chronic pain G89.29 ; Screening due Z13.9 ; Intertriginous candidiasis B37.2 ; Morbid (severe) obesity due to excess calories E66.01 and Pulmonary emphysema, unspecified emphysema type J43.9 [facility] [address] [place] [address] 07/01/2025 Reginaldo Hanley Lumbago with sciatic a, left side M54.42 ; Lumbago with sciatica, right side M54.41 ; Difficulty walking R26.2 ; Other chronic pain G89.29 ; Gait difficulty R26.9 ; Low back pain M54.5 and Sciatica of right side M54.31 Assessments Encounter Date Diagnosis (ICD Code) Assessment Notes Treatment Notes Treatment Clinical Notes Section Notes 07/30/2024 Anxiety (ICD-10 - F41.9) 08/16/2024 Lack of access to transportation (ICD-10 - Z91.89) Pt transported to and from appointment 08/16/2024 Diarrhea of presumed infectious origin (ICD-10 - R19.7) 08/16/2024 Nausea and vomiting, unspecified vomiting type (ICD-10 - R11.2) Patient notes that Arsh gives her severe headaches. I will give [...] have sent this 2 times before, but [facility] has failed to fill it. I instructed [...] to pain management has been sent to [place] to ensure appropriate management of pain symptoms.- [...] challenges. 04/05/2025 Intertriginous candidiasis (ICD-10 - B37.2) 06/07/2025 Type 2 diabetes mellitus with unspecified complications (ICD-10 - E11.8) Pertaining to the patient's type 2 diabetes mellitus with A1c at 6.7% today, I instruct the patient to watch her carbohydrate intake and to watch her diet. Patient voices understanding and agrees to do this. I will increase her metformin to 750 mg once a day and send Mounjaro at this time. Concerning her low back pain, sciatica of right side, gait difficulty, and other chronic pain, I will send a prescription for a walker and shower chair at this time. She would also like a pain management referral to the [facility]. I have sent this at this time. Pertaining to her hospital visit in [place], I will have the patient sign a medical release form to get more information about her hospital stay there and alter treatment accordingly. For her colonoscopy that is needed, I instruct the patient to follow-up with her gypsum calciner to schedule this. Patient voices understanding to this. Refills are placed at this time for losartan, nystatin, and epinephrine. Patient also needs a refill of her beta-rory for her nebulizer. This has been placed at this time. All questions and concerns were addressed with the patient. Follow-up in 3 months for chronic conditions. 06/07/2025 Low back pain (ICD-10 - M54.5) 06/17/2025 Pulmonary emphysema, unspecified emphysema type (ICD-10 - J43.9) 07/01/2025 Lumbago with sciatica, left side (ICD-10 - M54.42) Medical necessity as described as above. I will print off the note today and give it to the patient. I will personally sign it myself. Preceptor will also sign the note from today as well. We will send the paperwork with the fax from the rollator supply [employer]. We will await their decision. Prescription for rollator is sent at this time. All questions and concerns were addressed to the patient. Follow-up for chronic needs as scheduled. 07/01/2025 Lumbago with sciatica, right side (ICD-10 - M54.41) 06/07/2025 Sciatica of right side (ICD-10 - M54.31) 03/15/2025 Asthma (ICD-10 - J45.909) 03/15/2025 Anxiety (ICD-10 - F41.9) 01/18/2025 Screening due (ICD-10 - Z13.9) 12/20/2024 Pain in left hip (ICD-10 - M25.552) 11/04/2024 Intertriginous candidiasis (ICD-10 - B37.2) 09/14/2024 Chest congestion (ICD-10 - R09.89) 08/16/2024 Head lice (ICD-10 - B85.0) 08/27/2024 Acute cystitis without hematuria (ICD-10 - N30.00) 08/17/2024 Type 2 diabetes mellitus with unspecified complications (ICD-10 - E11.8) 08/16/2024 Dehydration (ICD-10 - E86.0) 08/27/2024 Difficulty walking (ICD-10 - R26.2) 09/14/2024 Head lice (ICD-10 - B85.0) 12/20/2024 Lumbago with sciatica, right side (ICD-10 - M54.41) 11/04/2024 Anxiety (ICD-10 - F41.9) 03/15/2025 Type 2 diabetes mellitus with unspecified complications (ICD-10 - E11.8) 01/18/2025 Screening mammogram for breast cancer (ICD-10 - Z12.31) 06/07/2025 Gait difficulty (ICD-10 - R26.9) 07/01/2025 Difficulty walking (ICD-10 - R26.2) 07/01/2025 Other chronic pain (ICD-10 - G89.29) 03/15/2025 Screening due (ICD-10 - Z13.9) 06/07/2025 Other chronic pain (ICD-10 - G89.29) 11/04/2024 Sciatica of right side (ICD-10 - M54.31) 01/18/2025 Morbid (severe) obesity due to excess calories (ICD-10 - E66.01) 12/20/2024 Lumbago with sciatica, left side (ICD-10 - M54.42) 09/14/2024 Nausea and vomiting, unspecified vomiting type (ICD-10 - R11.2) 08/27/2024 Gait difficulty (ICD-10 - R26.9) 08/16/2024 Right upper quadrant abdominal pain (ICD-10 - R10.11) 09/14/2024 Essential (primary) hypertension (ICD-10 - I10) 11/04/2024 Low back pain (ICD-10 - M54.5) 12/20/2024 Other chronic pain (ICD-10 - G89.29) 01/18/2025 Body mass index [BMI] 40.0-44.9, adult (ICD-10 - Z68.41) 07/01/2025 Gait difficulty (ICD-10 - R26.9) 06/07/2025 Screening due (ICD-10 - Z13.9) 06/07/2025 Intertriginous candidiasis (ICD-10 - B37.2) 07/01/2025 Low back pain (ICD-10 - M54.5) 01/18/2025 Obesity, class 3 (ICD-10 - E66.813) 12/20/2024 Essential hypertension (ICD-10 - I10) 09/14/2024 Type 2 diabetes mellitus with unspecified complications (ICD-10 - E11.8) 01/18/2025 Major depressive episode (ICD-10 - F32.9) 12/20/2024 Right flank pain (ICD-10 - R10.9) 06/07/2025 Morbid (severe) obesity due to excess calories (ICD-10 - E66.01) 07/01/2025 Sciatica of right side (ICD-10 - M54.31) 06/07/2025 Pulmonary emphysema, unspecified emphysema type (ICD-10 - J43.9) 01/18/2025 Persistent depressive disorder (ICD-10 - F34.1) 12/20/2024 Increased urinary frequency (ICD-10 - R35.0) 01/18/2025 Essential hypertension (ICD-10 - I10) 11/04/2024 Other Body Mass Index : Care Instructions material was printed, Body Mass Index: Care Instructions material was printed, Learning About Benefits of Quitting Smoking material was printed 06/07/2025 Other Body Mass Index : Care Instructions material was printed, Learning About Benefits of Quitting Smoking material was printed 07/01/2025 Other Body Mass Index : Care Instructions material was published, Learning About Benefits of Quitting Smoking material was published Plan Of Treatment Pending Test Test Name Order Date Comprehensive Metabolic Panel 03/15/2025 Lipid Panel 03/15/2025 Thyroid Stim Hormone w/Rflx 03/15/2025 Complete Blood Count Auto Diff CT abdomen pelvis wo con 12/20/2024 MM screening mammo BI w/CAD 01/18/2025 Next Appt Details Provider Name:Reginaldo hinton, 09/09/2025 01:00:00 PM, [address], [place], [address], Insurance Providers Payer Name Payer Address Payer Phone Subscriber Number Group Number Insured Name Patient Relationship to Insured Coverage Start Date Coverage End Date [employer] [place] Medicaid [address] [place] [phone] [id number] ALIRIO CUNHA Self - patient is the insured 3 Wrap ABD [employer] [address] [place] [address] [id number] ALIRIO CUNHA Self - patient is the insured 3 [employer] -termed 22 [address] [place] [address] [id number] ALIRIO CUNHA Self - patient is the insured 9 3 zMEDICAID ABD after [employer]- termed 22 [address] [place] [address] [id number] ALIRIO CUNHA Self - patient is the insured 9 3 zBH [employer]- termed 22 [address] [place] [address] [id number] ALIRIO CUNHA Self - patient is the insured 1 zDENTAL DQ [employer]- termed 22 [address] [place] [address] [id number] ALIRIO CUNHA Self - patient is the insured 1 zDental Medicaid ABD after [employer]- termed 22 [address] [place] [address] [id number] ALIRIO CUNHA Self - patient is the insured 1 MEDICAID TRANSPORTAT ION [address] [place] [address] [id number] ALIRIO CUNHA Self - patient is the insured 4 .Transport ABD [employer] wrap [address] [place] [address] [id number] ALIRIO CUNHA Self - patient is the insured 4 [facility] [address] [place] [address] [phone] [id number] ALIRIO CUNHA Self - patient is the insured 4 5 Medical (General) History Medical History History ICD Code LEVEL 4 HTN DM OA of spine bipolar emphysema Hernia in esophagus HTN (hypertension) I10 COPD gallstones Surgical History Surgery Date(Month/Year) back surgery 04,05,06 tonsilectomy as child appendectomy as teenager TKA R knee Aug 2014 TKA L knee 2014 total abdominal hysterectomy 2002 throat surgery [id number] gallbladder 09/2024 Hospitalization History Reason Date(Month/Year) Vaginal Lacerations 2018 ICU stay for pneumonia 2011
--- OUTSIDE RECORDS SUMMARY | 2025-07-24 11:53 | XMS_ITS | Encounter Summary ---
Author Organization [facility] Address [address], [address] [place] [address] Care Team Providers Care Court Monitor Name Role Phone Argelia Bocanegra MD Primary Care Provider [phone] Reason for Visit * Reason Comments Medication Refill Encounter Details Date Type Department Care Team (Late st Contact Info) Description 04/12/2021 Refill [facility] [address], [address] [place], [place] [id number] Liv Leong MD [address] [place] [address] [address] [place], [place] [id number] Medication Refill Social History Tobacco Use Types [...] Time COVID-19 (Rule Out) 04/28/2025 04/28/2025 04/28/20 25 6:12 PM EDT COVID-19 (Rule Out) 04/28/2025 04/28/2025 04/29/20 25 5:50 PM EDT Parainfluenza 04/28/2025 04/28/2025 05/08/2025 9:2 7 PM EDT documented as of this encounter Care Teams Court Monitor Relationship Specialty Start Date End Date Argelia Bocanegra MD PCP - General 01/12/21 documented as of this encounter
--- OUTSIDE RECORDS SUMMARY | 2025-07-24 11:53 | XMS_ITS | Encounter Summary ---
Author Organization [facility] Address [address] [place] [address] Care Team Providers Care Fudger Name Role Phone Rochelle Jose MD Primary Care Provider [phone] Reason for Visit * Reason Comments Medication Refill Encounter Details Date Type Department Care Team (Late Contact Info) Description 07/14/2025 Refill [facility] [facility] [address] [place] [address] Nichole Anotn, [address] [place] [address] Chronic cough; Chronic obstructive pulmonary disease, unspecified COPD type; KELLIE (generalized anxiety disorder); Gastroesophageal reflux disease, unspecified whether esophagitis present Social History Tobacco Use Types Packs/Day Years [...] Info) Description 08/11/2025 11:45 AM EDT Telemedicine [facility] [address] [place] [address] Nichole Anton, [address] [place] [address] documented as of this encounter Visit Diagnoses Diagnosis Chronic cough Cough Chronic obstructive pulmonary disease, unspecified COPD type KELLIE (generalized anxiety disorder) Generalized anxiety disorder Gastroesophageal reflux disease, unspecified whether esophagitis present documented in this encounter Care Teams Fudger Relationship Specialty Start Date End Date Rochelle Jose MD PCP - General Family Medicine 03/20/23 documented as of this encounter
--- OUTSIDE RECORDS SUMMARY | 2025-07-24 11:53 | XMS_ITS | Encounter Summary ---
Author Organization [facility] Address [address] [place] [address] Care Team Providers Care Acute Specialist Name Role Phone Rochelle Jose MD Primary Care Provider [phone] Reason for Visit * Reason Comments Medication Refill Encounter Details Date Type Department Care Team ([facility] Contact Info) Description 07/03/2025 Refill [facility] [address] [place] [address] Nichole Anton, [address] [place] [address] Neuropathy of right lower extremity Social History [...] Info) Description 08/11/2025 11:45 AM EDT Telemedicine [facility] [address] [place] [address] Nichole Anton DO [address] [place] [address] documented as of this encounter Visit Diagnoses Diagnosis Neuropathy of right lower extremity documented in this encounter Care Teams Acute Specialist Relationship Specialty Start Date End Date Rochelle Jose MD PCP - General Family Medicine 03/20/23 documented as of this encounter
--- NOTE | 2025-07-24 12:00 | CT_ITS ---
The [address] [address] Patient Name: ALIRIO CUNHA MRN: [id number] date: 1960 Sex: F Assigned Patient Location: ED.MAIN Current Patient Location: ED.MAIN Accession/Order Number: [id number] Exam Date: 07/24/2025 12:30 Report Date: 07/24/2025 13:01 At the request of: SHAYY HOLM MD Procedure: CT abdomen pelvis wo con CT abdomen pelvis wo con 07/24/2025 12:42 PM SIGNS AND SYMPTOMS: Right lower quadrant pain, diarrhea TECHNIQUE: Multidetector ct axial images of the abdomen and pelvis were obtained without IV contrast. Multiplanar reformats were performed and reviewed to further define anatomy and possible pathology. CT was performed with one or more of the following dose reduction techniques: Automated exposure control, adjustment of the mA and/or kV according to patient size, or use of iterative reconstruction technique. COMPARISON: None. FINDINGS: Lower Chest: Mild atherosclerotic changes are noted in the coronary arteries. There is pleural-based scarring in the right middle lobe. ABDOMEN: Liver: Within normal limits. Bile Ducts: Normal caliber. Gallbladder: Previously removed Pancreas: Within normal limits. Spleen: Within normal limits. Adrenals: Within normal limits. Kidneys: There is left-sided renal cortical atrophy. Pelvis: Reproductive Organs: No pelvic masses. Ureters: Within normal limits. Bladder: Within normal limits. Bowel: There are uncomplicated colonic diverticula. There is no evidence of bowel obstruction. No evidence of acute appendicitis. Mesenteric Lymph Nodes: No enlarged mesenteric lymph nodes. Peritoneum: No ascites or free air, no fluid collection. Vessels: Atherosclerotic changes are noted in the abdominal aorta and its branches. Retroperitoneum: Within normal limits. Abdominal Wall: Within normal limits. Bones: Posterior fusion hardware is noted in the lumbar spine. Degenerative changes are noted in the upper lumbar spine. CT/CT abdomen pelvis wo con IMPRESSION: No bowel obstruction or obstructive uropathy. No evidence of acute appendicitis. There is evidence of prior cholecystectomy. Impression dictated by: Dmitriy Velázquez M.D. 07/24/2025 1:01 PM Dictation Location: [place] [address] Electronically authenticated by: [id number] Y Date: 07/24/2025 13:01
[2025-07-24] MEDS: ORPHENADRINE 60 MG/2 ML VIAL IV (12:20)
[2025-07-24 12:30] LABS: Hematocrit 33.8 % (36.0-48.0); Hemoglobin 9.9 g/dL (12.0-16.0); Immature Granulocytes Abs Auto 0.03 10^3/uL (0.00-0.03); Immature Granulocytes Pct Auto 0.3 % (0.0-0.5); Lymphocytes Absolute Auto 3.3 10^3/uL (1.2-3.8); Mean Corpuscular HGB Conc 29.3 g/dL (29.9-35.2); Mean Corpuscular Hemoglobin 22.0 pg (26.7-34.0); Mean Corpuscular Volume 75.1 fL (81.0-99.0); Platelet Count 332 10^3/uL (150-450); Red Blood Count 4.50 10^6/uL (4.20-5.40); White Blood Count 9.5 10^3/uL (4.0-11.0)
[2025-07-24] MEDS: HYDROMORPHONE HCL 0.5 MG/0.5 ML SYRINGE IV (12:47)
[2025-07-24] MEDS: PROCHLORPERAZINE 10 MG/2 ML VIAL 5 MG IV (12:47)
--- NOTE | 2025-07-24 12:54 | PC.NURSE ---
pt and friends at bedside [facility] - before giving dilaudid this RN asked pt if she would be kicked out from there and pt states she will not. she will just need documentation saying we administered it. she states her counselor knew she was coming to ED.
[2025-07-24 12:55] LABS: Alanine Aminotransferase 20 U/L (14-59); Albumin Globulin Ratio 0.9; Albumin Level 3.8 g/dL (3.4-5.0); Alkaline Phosphatase 123 U/L (46-116); Anion Gap 14.1; Aspartate Amino Transferase 9 U/L (15-37); Blood Urea Nitrogen 16.0 mg/dL (7.0-18.0); Calcium 9.9 mg/dL (8.5-10.1); Carbon Dioxide 28.8 mmol/L (21.0-32.0); Chloride 100 mmol/L (98-107); Estimated GFR (African America >60 (>=60 mL/min/1.73m^2); Estimated GFR (Non-African Ame 60 (>=60 mL/min/1.73m^2); Globulin 4.3 g/dL; Glucose 106 mg/dL (74-106); Potassium 4.9 mmol/L (3.5-5.1); Sodium 138 mmol/L (136-145); Total Protein 8.1 g/dL (6.4-8.2)
--- NOTE | 2025-07-24 13:15 | ED.GENADUL1 ---
HPI HPI - General Adult General Chief complaint: Nausea/Vomiting/Diarrhea Stated complaint: DIARRHEA, BACK PAIN Time Seen by Provider: 07/24/25 11:44 Source: patient Mode of arrival: Wheelchair History of Present Illness HPI narrative: The patient have a history of chronic diarrhea supposed to have a colonoscopy done in the beginning of next month, and usually take antidiarrhea agent that helps her symptoms but for the last few days she noticed some abdominal pain in the lower abdomen that is crampy and she mentioned that her diarrhea seems to be worse The patient denies any blood or any mucus in stool she denies any fever or chills and she also mentioned that she had no recent intake of antibiotics The patient have a history of sciatic nerve pain on the right side that she thinks that got worse over the last few days after her diarrhea got worse No dizziness no chest pain no other concerns Related Data Home Medications ?Medication ?Instructions ?Recorded ?Confirmed amlodipine 10 mg tablet 10 mg PO DAILY 05/26/25 05/26/25 atorvastatin 80 mg tablet 80 mg PO DAILY 05/26/25 05/26/25 budesonide-formoterol HFA 80 2 inh inhalation Q12H 05/26/25 05/26/25 mcg-4.5 mcg/actuation aerosol inhaler (Symbicort) fluticasone propionate 50 2 spray intranasal Q12H 05/26/25 05/26/25 mcg/actuation nasal spray,suspension gabapentin 600 mg tablet 600 mg PO DAILY 05/26/25 05/26/25 ipratropium bromide 17 2 inh inhalation Q4H PRN shortness 05/26/25 05/26/25 mcg/actuation HFA aerosol inhaler of breath or wheezing (Atrovent HFA) losartan 50 mg tablet 50 mg PO DAILY 05/26/25 05/26/25 melatonin 3 mg tablet 3 mg PO BEDTIME 05/26/25 05/26/25 metformin 500 mg tablet,extended 500 mg PO DAILY 05/26/25 05/26/25 release 24 hr omeprazole 40 mg capsule,delayed 40 mg PO DAILY 05/26/25 05/26/25 release propranolol 160 mg capsule,24 160 mg PO Q24H 05/26/25 05/26/25 hr,extended release Previous Rx's ?Medication ?Instructions ?Recorded acetaminophen 300 mg-codeine 30 mg 1 tab PO Q6H PRN pain 5 days #20 05/26/25 tablet tabs dicyclomine 20 mg tablet 20 mg PO QID PRN abdominal pain 07/24/25 #20 tabs orphenadrine citrate 100 mg 100 mg PO DAILY PRN muscle spasm 07/24/25 tablet,extended release #10 tabs Allergies Allergy/AdvReac Type Severity Reaction Status Date / Time Penicillins Allergy Severe Unknown Verified 05/26/25 08:29 topiramate (From Topamax) Allergy Severe Hives Verified 07/24/25 11:40 aspirin Allergy Unknown Unknown Verified 05/26/25 08:29 Iodinated Contrast Media Allergy Unknown Unknown Verified 05/26/25 08:29 lisinopril Allergy Unknown Unknown Verified 05/26/25 08:29 prednisone Allergy Unknown Unknown Verified 05/26/25 08:29 Sulfa (Sulfonamide Allergy Unknown Unknown Verified 05/26/25 08:29 Antibiotics) sumatriptan (From Imitrex) Allergy Unknown Unknown Verified 05/26/25 08:29 tramadol (From Ultram) Allergy Unknown Unknown Verified 05/26/25 08:29 ondansetron AdvReac Intermediate Migraine Verified 07/24/25 12:28 Opioid HPI Opioid Management Most Recent Opioid Data: Last Pain Scale 10 05/26/25, 08:34 Review of Systems ROS Status of ROS 10 or more systems reviewed and unremarkable except as noted in history and below PFSH PFSH Social History Little interest or pleasure in doing things: not at all Feeling down, depressed, or hopeless: not at all Exam Narrative Exam Narrative: Nurses notes and vital signs reviewed and patient is not hypoxic. General: Well-appearing and in no apparent distress. Skin: Warm, dry, no pallor noted. No rash. Head: Normocephalic, atraumatic. Neck: Supple, non-tender. Eye: Pupils are equal, round and EOMI. No scleral icterus. Ears, Nose, Mouth, and Throat: TM are clear, no nasal mucosal hypertrophy. Oral mucosa is moist, no posterior oropharynx erythema, uvula is mid-line Cardiovascular: Regular Rate and Rhythm without murmur, gallop or rub. Respiratory: No accessory muscle use or respiratory distress. Lungs are clear to auscultation, no wheezing, rales or rhonchi Chest Wall: no tenderness Back: No midline thoracic or lumbar vertebral tenderness. No CVA tenderness . No spinal muscle tenderness in the right upper lumbar level there is no ecchymosis no open wound no rash Musculoskeletal: normal ROM, no calf or popliteal tenderness, no lower extremity edema/swelling GI: Abdomen is soft, non-distended. Normal bowel sounds. No masses appreciated. There is tenderness upon palpation of the suprapubic and lower abdomen and the patient have no shifting dullness Neurological: A&O x4. No cranial nerve dysfunction observed. No truncal ataxia. Moves all extremities. Sensation intact. Psychiatric: Cooperative and interactive. Normal mood and affect. Constitutional Vital Signs, click to edit/add: Last Vital Signs Temp 98.1 F 07/24/25 11:29 Pulse 68 07/24/25 13:39 Resp 18 07/24/25 13:39 BP 137/75 07/24/25 13:31 Pulse Ox 94 L 07/24/25 13:39 O2 Del Method Room Air 07/24/25 13:39 O2 Flow Rate 2 07/24/25 13:09 Course Vital Signs Vital signs: Vital Signs Temperature 98.1 F 07/24/25 11:29 Pulse Rate 72 07/24/25 11:29 Respiratory Rate 22 H 07/24/25 11:29 Blood Pressure 171/81 H 07/24/25 11:29 Pulse Oximetry 93 L 07/24/25 11:29 Oxygen Delivery Method Room Air 07/24/25 11:29 Temperature 98.1 F 07/24/25 11:29 Pulse Rate 68 07/24/25 13:39 Respiratory Rate 18 07/24/25 13:39 Blood Pressure 137/75 07/24/25 13:31 Pulse Oximetry 94 L 07/24/25 13:39 Oxygen Delivery Method Room Air 07/24/25 13:39 Oxygen Delivery Flow Rate 2 07/24/25 13:09 Medical Decision Making MDM Narrative Medical decision making narrative: CBC and chemistry showed no acute pathology The patient was treated with Dilaudid IV because she has allergy to NSAIDs The patient also had a CAT scan that showed no acute pathology Patient was discharged home with Norflex for her back pain as well as Bentyl for abdominal crampy pain Patient instructed that she to follow-up with her event lighting specialist for the colonoscopy next week The patient is to follow up with primary care physician in next 2-3 days or to return to the emergency department should any of the signs or symptoms worsen or new symptoms develop. The patient agrees with the following Diagnosis and Treatment plan and the patient will be discharged home. Lab Data Labs: Lab Results 07/24/25 Range/Units 11:45 WBC 9.5 (4.0-11.0) 10^3/uL RBC 4.50 (4.20-5.40) 10^6/uL Hgb 9.9 L (12.0-16.0) g/dL Hct 33.8 L (36.0-48.0) % MCV 75.1 L (81.0-99.0) fL MCH 22.0 L (26.7-34.0) pg MCHC 29.3 L (29.9-35.2) g/dL RDW 17.0 H (11.0-15.0) % Plt Count 332 (150-450) 10^3/uL MPV 11.1 (9.5-13.5) fL Neut % (Auto) 56.5 (43.0-75.0) % Lymph % (Auto) 34.6 (20.5-60.0) % Rush % (Auto) 7.1 (1.7-12.0) % Eos % (Auto) 1.1 (0.9-7.0) % Baso % (Auto) 0.4 (0.2-2.0) % Neut # (Auto) 5.4 (1.4-6.5) 10^3/uL Lymph # (Auto) 3.3 (1.2-3.8) 10^3/uL Rush # (Auto) 0.7 (0.3-0.8) 10^3/uL Eos # (Auto) 0.1 (0.0-0.7) 10^3/uL Baso # (Auto) 0.0 (0.0-0.1) 10^3/uL Abs Immat Gran (auto) 0.03 (0.00-0.03) 10^3/uL Imm/Tot Granulo (auto) 0.3 (0.0-0.5) % Sodium 138 (136-145) mmol/L Potassium 4.9 (3.5-5.1) mmol/L Chloride 100 (98-107) mmol/L Carbon Dioxide 28.8 (21.0-32.0) mmol/L Anion Gap 14.1 BUN 16.0 (7.0-18.0) mg/dL Creatinine 0.95 (0.55-1.02) mg/dL Est GFR ( Amer) >60 (>=60 mL/min/1.73m^2) Est GFR (Non-Af Amer) 60 (>=60 mL/min/1.73m^2) BUN/Creatinine Ratio 16.8 Glucose 106 (74-106) mg/dL Calcium 9.9 (8.5-10.1) mg/dL Total Bilirubin 0.5 (0.2-1.0) mg/dL AST 9 L (15-37) U/L ALT 20 (14-59) U/L Alkaline Phosphatase 123 H (46-116) U/L Total Protein 8.1 (6.4-8.2) g/dL Albumin 3.8 (3.4-5.0) g/dL Globulin 4.3 g/dL Albumin/Globulin Ratio 0.9 Discharge Plan Discharge Chief Complaint: Nausea/Vomiting/Diarrhea Clinical Impression: Abdominal pain Patient Disposition: Home, Self-Care Time of Disposition Decision: 13:16 Condition: Good Mode of Transportation: Private Vehicle Prescriptions / Home Meds: New dicyclomine 20 mg tablet 20 mg PO QID PRN (Reason: abdominal pain) Qty: 20 0RF orphenadrine citrate 100 mg tablet extended release 100 mg PO DAILY PRN (Reason: muscle spasm) Qty: 10 0RF No Action amlodipine 10 mg tablet 10 mg PO DAILY atorvastatin 80 mg tablet 80 mg PO DAILY budesonide-formoterol [Symbicort] 80-4.5 mcg/actuation HFA aerosol inhaler 2 inh INHALATION Q12H fluticasone propionate 50 mcg/actuation spray,suspension 2 spray INTRANASAL Q12H gabapentin 600 mg tablet 600 mg PO DAILY Atrovent HFA 17 mcg/actuation HFA aerosol inhaler 2 inh INHALATION Q4H PRN (Reason: shortness of breath or wheezing) metformin 500 mg tablet extended release 24 hr 500 mg PO DAILY melatonin 3 mg tablet 3 mg PO BEDTIME losartan 50 mg tablet 50 mg PO DAILY omeprazole 40 mg capsule,delayed release(DR/EC) 40 mg PO DAILY propranolol 160 mg capsule,extended release 24 hr 160 mg PO Q24H acetaminophen-codeine 300-30 mg tablet 1 tab PO Q6H PRN (Reason: pain) 5 Days Qty: 20 0RF Print Language: Iranian Instructions: Abdominal Pain (ED), Back Pain (ED) Referrals: [facility] [Primary Care Provider] - 1 week Discharge Date/Time: 07/24/25 13:43
== END 2025-07-24 13:43 | disposition home or self-care (01) ==
PROVIDERS: Emergency Provider Emergency Medicine
DX: R10.30 Lower abdominal pain, unspecified (principal); K52.9 Noninfective gastroenteritis and colitis, unspecified
CPT/HCPCS: 36415; 74176; 80053; 85025; 96374; 96375; 99284; J0780; J1171; J2360

== ENCOUNTER 2025-08-18 05:34 | Emergency (ER) | payer OTHER, SELFPAY ==
--- OUTSIDE RECORDS SUMMARY | 2019-12-12 20:00 | XMS_ITS | Continuity of Care Document ---
Author Organization [facility] Address [address] [place] [address] Phone Care Team Providers Care Machine Grinder Name Role Phone Pavlock DO, Max Unavailable [...] Diagnoses Date Provider Providers Copied on Encounter [facility], [address], [place], [id number] , [place] tel: [phone] [facility] Alcohol dependence with withdrawal, uncomplicatedCocaine dependence with withdrawal 0 Pavlock DO Max. [address], [place], [address] , [place]. tel: [phone] [facility], [address], [place], [id number] , [place] tel: [phone] [facility] Alcohol dependence with withdrawal, uncomplicatedCocaine dependence with withdrawal 0 Pavlock DO Max. [address], [place], [id number] , [place]. tel: [phone] [facility], [address], [place], [address] , [place] tel: [phone] [facility] Alcohol dependence with withdrawal, uncomplicatedCocaine dependence with withdrawal 0 Pavlock DO Max. [address], [place], [address] , [place]. tel: [phone] [facility], [address] [place] [address], [id number] , [place] tel: [phone] [facility] Alcohol dependence with withdrawal, uncomplicatedCocaine dependence with withdrawal 0 Pavlock DO Max. [address], [place], [address] , [place]. tel: [phone] [facility], [address], [place], [address] , [place] tel: [phone] [facility] alcohol and cocaine dependence (chief complaint) Alcohol dependence with withdrawal, uncomplicatedCocaine dependence with withdrawal 0 Lawrence Lopez. [address], [place], [id number] , [place]. tel: [phone] [facility], [address], [place], [address] , [place] tel: [phone] [facility] Alcohol dependence with withdrawal, uncomplicatedCocaine dependence with withdrawalEncounter for test, result negative 0 Pavlock DO Max. [address], [place], [address] , [place]. tel: [phone] [facility], [address], [place], [address] , [place] tel: [phone] [facility] Alcohol dependence with withdrawal, uncomplicatedCocaine dependence with withdrawalEncounter for test, result negative 0 Pavlock DO Max. [address], [place], [address] , [place]. tel: [phone] [facility], [address], [place], [address] , [place] tel: [phone] [facility] Alcohol dependence with withdrawal, uncomplicated 0 Pavlock DO Max. [address], [place], [address] , [place]. tel: [phone] [facility], [address], [place], [address] , [place] tel: [phone] [facility] Alcohol dependence with withdrawal, uncomplicated 0 Pavlock DO Max. [address], [place], [address] , [place]. tel: [phone] [facility], [address], [place], [id number] , [place] tel: [phone] [facility] alcohol and cocaine dependence (chief complaint) Alcohol dependence with withdrawal, uncomplicatedCocaine dependence with withdrawal 0 Lawrence Lopez. [address], [place], [address] , . tel: [phone] [facility], [address], [place], [address] , [place] tel: [phone] [facility] Alcohol dependence with withdrawal, uncomplicated 0 Pavlock DO Max. [address], [place], [id number] , [place]. tel: [phone] [facility], [address] [place] [address], [id number] , tel: [phone] [facility] Alcohol dependence with withdrawal, uncomplicatedCocaine dependence with withdrawal 0 Pavlock DO Max. [address], [place], [address] , [place]. tel: [phone] Family History Family Member Type Diagnosis Age At Onset Father Problem (finding) malignant neoplasm of l alan Sister Problem (finding) seizure disorder Mother Problem (finding) malignant neoplasm of t hyroid Mother Problem (finding) malignant neoplasm of u terus Payers Payer name Insurance type Covered alliance party ID [employer] tidavid(s) [employer] Medicaid [place] [id number] Social History Type Description Quantity Date Captured [...]
--- OUTSIDE RECORDS SUMMARY | 2025-06-23 11:30 | XMS_ITS ---
Author Organization [facility] Servic es Address [address] [place] [address] Care Team Providers Care Tattoo And Body Artist Name Role Phone Reginaldo Hanley Primary Care Provider REASON FOR VISIT rollator issues/ ADLS Medications [...] *NEW PRESCRIPTION REQUEST*; Duration: 90 Active Nystatin 692184 UNIT/GM APPLY TO AFFECTE D AREA(S) THREE TIMES A DAY *NEW PRESCRIPTION REQUEST*; Duration: 30 Active Symbicort 80-4.5 MCG/ACT INHALE TWO (2) PUFFS BY MOUTH TWICE DAILY *NEW PRESCRIPTION REQUEST*; Duration: 90 Active Promethazine HCl 12.5 MG 1 tablet as needed Orally every 6 hrs; Duration: 30 day(s) Active OneTouch Delica Plus [id number] - USE TO TEST BLOOD SUGAR 3 TIMES DAILY *NEW PRESCRIPTION REQUEST*; Duration: 90 Active EPINEPHrine 0.3 MG/0.3ML Inject one syringe in the outer thigh as needed for allergic reaction; Max daily dose 2 (TWO) syringes Injection Active Social History Sex Assigned At : Social History Observation Description Sex Assigned At Female Encounters Encounter Location Date Provider Diagnosis [facility] [address] [place] [address] 06/23/2025 Reginaldo Hanley Plan Of Treatment Next Appt Details Provider Name:Reginaldo hinton, 09/09/2025 01:00:00 PM, [address], [place], [address], Progress Notes * ALPHONSEALIRIO DDOB: [birth year] (65 yo F)Acc No.[id number]:06/23/2025 Virtual Primary Care Visit Patient: ALIRIO GEIGER Account Number:[id number] Appointment Provider: Amee Hanley DO :1960 A ge:64 Y S ex:Female Date:06/23/2025 Address:[address] [place] [address] [id number] Subjective: * Chief Complaints: * 1 . [...] syringes Injection , Taking OneTouch Delica Plus [id number] - Miscellaneous USE TO TEST BLOOD SUGAR [...] DAILY *NEW PRESCRIPTION REQUEST* , Taking Nystatin 413673 UNIT/GM Powder APPLY TO AFFECTED AREA(S) THREE [...] Electronic signature of Pedro Hanley DO on 08/18/2025 at 06:54 AM EDT Sign off status: Pending * Appointment Provider: Amee Hanley DO Date: 06/23/2025 Generated for Tiffany ruffin/Julio/Ramez on: 08/18/2025 06:54 AM EDT
--- OUTSIDE RECORDS SUMMARY | 2025-06-24 09:15 | XMS_ITS ---
Author Organization [facility] Servic es Address [address] [place] [address] Care Team Providers Care Orange Picking Supervisor Name Role Phone Reginaldo Hanley Primary Care Provider REASON FOR VISIT rollator issues,adl Medications Medication SIG (Take, Route, Frequency, Duration) Notes Start Date End Date Status Alcohol Prep 70 % USE TO STERILIZE SKI N FOR TESTING BLOOD SUGAR THREE TIMES A DAY *NEW PRESCRIPTION REQUEST*; Duration: 3 Active Levalbuterol HCl 0.63 MG/3ML 3 mL as needed Inhalation every 6 hours; Duration: 30 days 06/07/2025 Active Atorvastatin Calcium 80 MG TAKE 1 TABLET BY MOUTH EVERY DAY *NEW PRESCRIPTION REQUEST*; Duration: 90 Active Aspercreme Lidocaine 4 % APPLY TO AFFECTED AREA(S) TOPICALLY NEEDED *NEW PRESCRIPTION REQUEST*; Duration: 76 Active True Metrix Air Glucose Meter - as directed; Duration: 365 days 06/18/2025 Active Fluticasone Propionate 50 MCG/ACT instill 1 spray into each nostril twice a day if needed Nasally twice a day; Duration: 90 days Active EPINEPHrine 0.3 MG/0.3ML INJECT DIRECTED NEEDED FOR ALLERGIC REACTION *NEW PRESCRIPTION REQUEST*; Duration: 6 Active Losartan Potassium 50 MG TAKE 1 TABLET BY MOUTH EVERY DAY *NEW PRESCRIPTION REQUEST*; Duration: 90 Active Melatonin 3 MG TAKE 3 TABLETS BY SC UT EVERY NIGHT AT BEDTIME NEEDED FOR SLEEP *NEW PRESCRIPTION REQUEST*; Duration: 90 Active metFORMIN HCl ER 750 MG TAKE 1 TABLET BY MOUTH EVERY DAY WITH EVENING MEAL *NEW PRESCRIPTION REQUEST*; Duration: 90 Active Propranolol HCl ER 160 MG TAKE ONE (1) CAPSULE BY MOUTH ONCE DAILY *NEW PRESCRIPTION REQUEST*; Duration: 90 Active OneTouch Ultra - USE TO TEST BLOOD ROBERTS GAR 3 TIMES DAILY *NEW PRESCRIPTION REQUEST*; Duration: 100 Active Promethazine HCl 12.5 MG 1 tablet as needed Orally every 6 hrs; Duration: 30 day(s) Active Symbicort 80-4.5 MCG/ACT INHALE TWO (2) PUFFS BY MOUTH TWICE DAILY *NEW PRESCRIPTION REQUEST*; Duration: 90 Active Nystatin 228808 UNIT/GM APPLY TO AFFECTE D AREA(S) THREE TIMES A DAY *NEW PRESCRIPTION REQUEST*; Duration: 30 Active OneTouch Delica Plus [id number] - USE TO TEST BLOOD SUGAR 3 TIMES DAILY *NEW PRESCRIPTION REQUEST*; Duration: 90 Active Tirzepatide 2.5 MG/0.5ML Take 2.5 mg Subcutaneous Once a week; Duration: 28 days 06/07/2025 07/05/2025 Active EPINEPHrine 0.3 MG/0.3ML Inject one syringe in the outer thigh as needed for allergic reaction; Max daily dose 2 (TWO) syringes Injection Active amLODIPine Besylate 10 MG take 1 tablet by mouth once daily Orally Once a day; Duration: 30 days Active Walker - as directed; Duratio n: 365 days 06/07/2025 Active RA Alcohol Swabs 70 % use as directed tara paul TO CHECK SUGARS 30; Duration: 30 days Active Omeprazole 40 MG take 1 capsule by mo uth once daily; Duration: 30 Active hydrOXYzine Pamoate 50 MG 1 capsule at bedtime as needed Orally every eight hours; Duration: 90 days As needed for anxiety attacks 09/14/2024 Active Gabapentin 600 MG 1 tablet Orally Once a day; Duration: 30 day(s) 03/15/2025 Active DULoxetine HCl 40 MG take 1 capsule by m outh twice a day Orally Once a day; Duration: 30 days Not-Taking test strips Freestyle Lite as directed externally twice a day; Duration: 90 days 06/23/2014 10/30/2025 Active Glucometer - place 1 drop of bloo d externally TID 12/07/2021 Active Lancets - as directed fingerti p three times a day; Duration: 30 days E11.9 Active Social History Sex Assigned At : Social History Observation Description Sex Assigned At Female Encounters Encounter Location Date Provider Diagnosis [facility] [address] [place] [address] 06/24/2025 Reginaldo Hanley Plan Of Treatment Next Appt Details Provider Name:Reginaldo hinton, 09/09/2025 01:00:00 PM, [address], [place], [address], Progress Notes * ALIRIO CUNHA DDOB: [birth year] (65 yo F)Acc No.[id number]:06/24/2025 Virtual Primary Care Visit Patient: ALIRIO GEIGER Account Number:[id number] Appointment Provider: Amee Hanley DO :1960 A ge:64 Y S ex:Female Date:06/24/2025 Address:[address] [place] [address] [id number] Subjective: * Chief Complaints: * 1 . Rollator issues,adl. * Medical History: * Medications: T aking [...] syringes Injection , Taking OneTouch Delica Plus Mesbks35Q - Miscellaneous USE TO TEST BLOOD SUGAR [...] DAILY *NEW PRESCRIPTION REQUEST* , Taking Nystatin 163527 UNIT/GM Powder APPLY TO AFFECTED AREA(S) THREE [...] * Appointment Provider: Amee Hanley DO Date: 06/24/2025 Generated for Tiffany ruffin/Julio/Ramez on: 08/18/2025 06:54 AM EDT
--- OUTSIDE RECORDS SUMMARY | 2025-06-28 11:15 | XMS_ITS ---
Author Organization [facility] Servic es Address [address] [place] [address] Care Team Providers Care Pipe Stem Aligner Name Role Phone Reginaldo Hanley Primary Care Provider REASON FOR VISIT rollator issue Social History Sex Assigned At : Social History Observation Description Sex Assigned At Female Encounters Encounter Location Date Provider Diagnosis [facility] [address] [place] [address] 06/28/2025 Reginaldo Hanley Plan Of Treatment Next Appt Details Provider Name:Reginaldo hinton, 09/09/2025 01:00:00 PM, [address], [place], [address], Progress Notes * ALIRIO CUNHA DDOB: [birth year] (65 yo F)Acc No.[id number]:06/28/2025 Progress Notes Patient: Nessa ALIRIO FOWLER Account Number:[id number] Appointment Provider: Amee Hanley DO :1960 A ge:64 Y S ex:Female Date:06/28/2025 Address:[address] [place] [address] [id number] Subjective: * Chief Complaints: * 1 . Rollator issue. * Medical History: Objective: * Vitals: Assessment: Plan: * Treatment: * Images: * Electronic signature of Pedro Hanley DO on 08/18/2025 at 06:53 AM EDT Sign off status: Pending * Appointment Provider: Amee Hanley DO Date: 0 06/28/2025 Generated for Tiffany ruffin/Julio/Terriitting on: 0 08/18/2025 06:53 AM EDT
[2025-08-18 05:37] VITALS: BP 173/87; PULSE 89; TEMP 36.8; O2SAT 91; BMI 43.9
--- NOTE | 2025-08-18 06:10 | ED.BACK1 ---
HPI HPI - Back Pain/Injury General Chief Complaint: Back Pain/Injury Stated Complaint: R BACK PAIN Time Seen by Provider: 08/18/25 05:44 Source: patient Mode of arrival: Wheelchair History of Present Illness HPI Narrative: This 65-year-old female presents for evaluation of right back pain radiating into her buttock and down her right leg consistent with sciatica. She has had this ongoing for many years. She has had 3 back surgeries in the past. She states that starting around 1 AM she had increasing pain in the right lower back area going down into her leg. She does have nerve damage in the leg with a foot drop and decreased sensation. This is unchanged for her. She has not had any bowel or bladder dysfunction. She has not had any fever. She denies any injury. She states that she is waiting to hear from [facility] to be placed in pain management. Related Data Home Medications ?Medication ?Instructions ?Recorded ?Confirmed amlodipine 10 mg tablet 10 mg PO DAILY 05/26/25 05/26/25 atorvastatin 80 mg tablet 80 mg PO DAILY 05/26/25 05/26/25 budesonide-formoterol HFA 80 2 inh inhalation Q12H 05/26/25 05/26/25 mcg-4.5 mcg/actuation aerosol inhaler (Symbicort) fluticasone propionate 50 2 spray intranasal Q12H 05/26/25 05/26/25 mcg/actuation nasal spray,suspension gabapentin 600 mg tablet 600 mg PO DAILY 05/26/25 05/26/25 ipratropium bromide 17 2 inh inhalation Q4H PRN shortness 05/26/25 05/26/25 mcg/actuation HFA aerosol inhaler of breath or wheezing (Atrovent HFA) losartan 50 mg tablet 50 mg PO DAILY 05/26/25 05/26/25 melatonin 3 mg tablet 3 mg PO BEDTIME 05/26/25 05/26/25 metformin 500 mg tablet,extended 500 mg PO DAILY 05/26/25 05/26/25 release 24 hr omeprazole 40 mg capsule,delayed 40 mg PO DAILY 05/26/25 05/26/25 release propranolol 160 mg capsule,24 160 mg PO Q24H 05/26/25 05/26/25 hr,extended release liraglutide 0.6 mg/0.1 mL (18 mg/3 mg subcut 08/18/25 mL) subcutaneous pen injector (Victoza 2-Neeraj) Previous Rx's ?Medication ?Instructions ?Recorded acetaminophen 300 mg-codeine 30 mg 1 tab PO Q6H PRN pain 5 days #20 05/26/25 tablet tabs dicyclomine 20 mg tablet 20 mg PO QID PRN abdominal pain 07/24/25 #20 tabs orphenadrine citrate 100 mg 100 mg PO DAILY PRN muscle spasm 07/24/25 tablet,extended release #10 tabs Allergies Allergy/AdvReac Type Severity Reaction Status Date / Time Penicillins Allergy Severe Unknown Verified 05/26/25 08:29 topiramate (From Topamax) Allergy Severe Hives Verified 07/24/25 11:40 aspirin Allergy Unknown Unknown Verified 05/26/25 08:29 Iodinated Contrast Media Allergy Unknown Unknown Verified 05/26/25 08:29 lisinopril Allergy Unknown Unknown Verified 05/26/25 08:29 prednisone Allergy Unknown Unknown Verified 05/26/25 08:29 Sulfa (Sulfonamide Allergy Unknown Unknown Verified 05/26/25 08:29 Antibiotics) sumatriptan (From Imitrex) Allergy Unknown Unknown Verified 05/26/25 08:29 tramadol (From Ultram) Allergy Unknown Unknown Verified 05/26/25 08:29 ondansetron AdvReac Intermediate Migraine Verified 07/24/25 12:28 Opioid HPI Opioid Management Most Recent Opioid Data: Last Pain Scale 10 08/18/25, 05:37 Review of Systems ROS Status of ROS 10 or more systems reviewed and unremarkable except as noted in history and below PFSH PFSH Social History Little interest or pleasure in doing things: not at all Feeling down, depressed, or hopeless: not at all Exam Narrative Exam Narrative: Vital signs and Nursing Notes reviewed: Patient is afebrile with normal pulse, blood pressure is elevated at 173/87, she is hypoxic with pulse ox of 91% on room air which is her baseline General: Awake, alert, oriented, obese adult female, tearful, no respiratory distress, she is lying on her left buttock due to right sided back and buttock pain HEENT: Normocephalic atraumatic, mucous membranes are moist and pink, eyes are clear, normal conjunctiva, vision is grossly intact Chest: Lungs are diffusely diminished without wheezing rhonchi or rales, no accessory muscle use, patient is speaking in complete sentences CVS: Regular rate and rhythm S1-S2, no murmurs rubs or gallops, pulses are brisk and equal bilaterally ABD: Obese, soft, nondistended Musc: There is tenderness in the right lumbar region and right buttock. Patient is status post back surgery with healed incisions and a defect at the mid lumbar region. There is no redness, swelling or sign of skin infection Extremities: Moving all extremities, no lower extremity tenderness or swelling noted, negative Homans' sign Skin: Normal in appearance without rash,pallor, petechiae or purpura Neuro: Decreased sensation in the right inguinal area, chronic in nature and unchanged. Push and pulls of the lower extremity are normal. Constitutional Vital Signs, click to edit/add: Last Vital Signs Temp 98.2 F 08/18/25 05:37 Pulse 89 08/18/25 05:37 Resp 20 08/18/25 05:37 BP 173/87 H 08/18/25 05:37 Pulse Ox 91 L 08/18/25 05:37 O2 Del Method Room Air 08/18/25 05:37 Course Vital Signs Vital signs: Vital Signs Temperature 98.2 F 08/18/25 05:37 Pulse Rate 89 08/18/25 05:37 Respiratory Rate 20 08/18/25 05:37 Blood Pressure 173/87 H 08/18/25 05:37 Pulse Oximetry 91 L 08/18/25 05:37 Oxygen Delivery Method Room Air 08/18/25 05:37 Temperature 98.2 F 08/18/25 05:37 Pulse Rate 89 08/18/25 05:37 Respiratory Rate 20 08/18/25 05:37 Blood Pressure 173/87 H 08/18/25 05:37 Pulse Oximetry 91 L 08/18/25 05:37 Oxygen Delivery Method Room Air 08/18/25 05:37 MDM - Back Pain/Injury MDM Narrative Medical decision making narrative: This 65-year-old female with a history of chronic back pain with degenerative disc disease and bone disease presents for evaluation of right sided sciatic pain that started in the middle of the night around 1 AM. She denies any injury. She has not had any fever. She denies any bowel or bladder dysfunction. Her friends brought her to the emergency department. She has history of chronic back disease status post 3 back surgeries with a defect in her mid lumbar region. This is unchanged. She also has nerve damage and a foot drop. This is also unchanged. She was medicated with IM Dilaudid and IM Norflex and given Compazine to prevent nausea from the medications. She will be discharged home with 2 [place]. She is waiting to hear from [facility] to be enrolled in pain management. I did review her [facility] report and she gets monthly prescriptions for gabapentin which she did take earlier in the evening. Last narcotic prescription was from this emergency department on 05/26/2025. Medical Records Attestation: I reviewed the patient's medical records. Discharge Plan Discharge Chief Complaint: Back Pain/Injury Clinical Impression: Acute exacerbation of chronic low back pain, Chronic low back pain with sciatica Patient Disposition: Home, Self-Care Time of Disposition Decision: 06:17 Condition: Good Prescriptions / Home Meds: No Action amlodipine 10 mg tablet 10 mg PO DAILY atorvastatin 80 mg tablet 80 mg PO DAILY budesonide-formoterol [Symbicort] 80-4.5 mcg/actuation HFA aerosol inhaler 2 inh INHALATION Q12H fluticasone propionate 50 mcg/actuation spray,suspension 2 spray INTRANASAL Q12H gabapentin 600 mg tablet 600 mg PO DAILY Atrovent HFA 17 mcg/actuation HFA aerosol inhaler 2 inh INHALATION Q4H PRN (Reason: shortness of breath or wheezing) metformin 500 mg tablet extended release 24 hr 500 mg PO DAILY melatonin 3 mg tablet 3 mg PO BEDTIME losartan 50 mg tablet 50 mg PO DAILY omeprazole 40 mg capsule,delayed release(DR/EC) 40 mg PO DAILY propranolol 160 mg capsule,extended release 24 hr 160 mg PO Q24H acetaminophen-codeine 300-30 mg tablet 1 tab PO Q6H PRN (Reason: pain) 5 Days Qty: 20 0RF dicyclomine 20 mg tablet 20 mg PO QID PRN (Reason: abdominal pain) Qty: 20 0RF orphenadrine citrate 100 mg tablet extended release 100 mg PO DAILY PRN (Reason: muscle spasm) Qty: 10 0RF liraglutide [Victoza 2-Neeraj] 0.6 mg/0.1 mL (18 mg/3 mL) pen injector SUBCUT Print Language: Dutch Instructions: Sciatica (ED), Chronic Pain (ED), Lumbar Radiculopathy (ED) Referrals: Physician,Non-Staff, MD [Physician] - 1 week Discharge Date/Time: 08/18/25 07:05
[2025-08-18] MEDS: ORPHENADRINE 60 MG/2 ML VIAL IM (06:25)
[2025-08-18] MEDS: PROCHLORPERAZINE MALEATE 5 MG TABLET PO (06:25)
[2025-08-18] MEDS: HYDROMORPHONE HCL 1 MG/ML CARTRIDGE IM (06:25)
[2025-08-18] MEDS: HYDROCODONE/ACET 5-325 MG TABLET PO ×2 (06:43→06:53)
--- OUTSIDE RECORDS SUMMARY | 2025-08-18 06:53 | XMS_ITS | Encounter Summary ---
Author Organization [facility] Address [address], [address] [place] [address] Care Team Providers Care Seasonal Customer Service Associate Name Role Phone Argelia Bocanegra MD Primary Care Provider [phone] Reason for Visit * Reason Comments Medication Refill Encounter Details Date Type Department Care Team (Late st Contact Info) Description 04/12/2021 Refill [facility] [address], [address] [place], [place] [id number] Liv Leong MD [address] [place] [address] [address] [place], [place] [id number] Medication Refill Social History Tobacco Use Types [...] documented as of this encounter Care Teams Seasonal Customer Service Associate Relationship Specialty Start Date End Date Argelia Bocanegra MD PCP - General 01/12/21 documented as of this encounter
--- OUTSIDE RECORDS SUMMARY | 2025-08-18 06:54 | XMS_ITS | Clinical Summary ---
Author Organization [facility] Address [address], [address] [place] [address] Care Team Providers Care Mental Health Social Worker Name Role Phone Argelia Bocanegra MD Primary Care Provider [phone] Allergies Active Allergy Reactions Criticality Noted Date [...] 04/28/2025 Primary hypertension 09/30/2022 Tobacco use 09/30/2022 Family History Medical History Relation Name Comments [...] 0.6 oz pur e alcohol) [facility] Utilities Answer Date Recorded In the past 12 months has th e electric, gas, oil, or water company threatened to shut off services in your [...] any time in the past 12 m [facility], were you homeless or living in a residential (including now)? No 04/28/2025 Food Insecurity Answer [...] - Risk 60-74 years 1-dose series) 2022 Flu vaccine (#1) 06/24/2025 11/06/2022, , 08/30/2021, Additional history exists COVID-19 Vaccine (3 - 2024- season) 2025 04/04/2021, 03/08/2021 A1C test (Diabetic or Prediabetic) 03/07/2026 03/07/2025 [...] Procedure Name Priority Date/Time Associated Diagnosis Comments BASIC METABOLIC PANEL W/ REFLEX TO MG FOR LOW K Routine 05/02/2025 5:30 AM EDT HEMOGLOBIN A1C Routine 03/07/2025 7:50 AM EDT from Last 3 Months or Most Recently Relevant to Health Maintenance Results * (ABNORMAL) Basic Metabolic Panel w/ Reflex to MG (05/02/2025 5:30 AM EDT) Sodium 143 136 - 145 mmol/L 05/02/2025 5:30 AM EDT [facility] Potassium 4.2 3.7 - 5.3 mmol/L 05/02/2025 5:30 AM EDT [facility] Chloride 106 98 - 107 mmol/L 05/02/2025 5:30 AM EDT [facility] CO2 25 20 - 31 mmol/L 05/02/2025 5:30 AM EDT [facility] Anion Gap 12 9 - 16 mmol/L 05/02/2025 5:30 AM EDT [facility] Glucose 105(H) 74 - 99 mg/dL 05/02/2025 5:30 AM EDT [facility] BUN 16 8 - 23 mg/dL 05/02/2025 5:30 AM EDT [facility] Creatinine 0.9 0.50 - 0.90 mg/dL 05/02/2025 5:30 AM EDT [facility] Est, Glom Filt Rate 73 >60 mL/min/1.7 3m2 05/02/2025 5:30 AM EDT [facility] Comment: These results are not [...] 9 - 20 05/02/2025 5:30 AM EDT [facility] Calcium 10.2 8.6 - 10.4 mg/dL 05/02/2025 5:30 AM T [facility] BLOOD SPECIMEN / Unknown 05/02/2025 5:30 AM EDT 05/02/2025 6:07 AM EDT us Champ Delatorre MD CHEMISTRY ORDERABLES Alba trevino Result [facility] [address] [phone] * (ABNORMAL) Hemoglobin A1C (03/07/2025 7:50 AM EDT) Hemoglobin A1C 6.4(H) 4.0 - 6.0 % 03/07/2025 7:50 AM EDT [facility] [employer] Estimated Avg Glucose 137 mg/dL 03/07/2025 7:50 AM EDT [employer] Comment: The ADA and AACC recommend providing the estimated average glucose result to permit better patient understanding of their HBA1c result. 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 CHEMISTRY ORDERABLES Fi nal Result [facility] [address] [place], [place] [id number] [phone] [employer] [address] [place], [place] [address] [phone] from Last 3 Months or Most Recently Relevant to Health Maintenance Insurance [employer] Advance Directives Documents on File Type Date Recorded Patient Cold Patcher Expl anation ACP-Advance Directive 05/02/2025 2:11 PM [...] Patrick Child Primary Decision Maker Care Teams Mental Health Social Worker Relationship Specialty Start Date End Date Argelia Bocanegra MD PCP - General 01/12/21
--- OUTSIDE RECORDS SUMMARY | 2025-08-18 06:54 | XMS_ITS | Patient Health Record ---
Author Organization [facility] es Address [address] [place] [address] Care Team Providers Care Guidance Counselor Name Role Phone Reginaldo Hanley Primary Care Provider Fidelia Jones Unavailable [phone] LisandraHerminia eli Unavailable [phone] Allergies Allergen (clinical drug ingredient) Drug/Non Drug [...] Reviewed date:08/30/2024 01:17:09 PM Interpretation: Performing Lab:, [facility], [place] Notes/Report: Urine Reason for Exam Acute cystitis without hematuria Dipstick and Microscopic Reviewed date:08/28/2024 11:17:57 AM Interpretation:+ LE Performing Lab:, [facility], [address] Notes/Report: Name Collection Type:: Voided Reason for Exam Acute cystitis without hematuria Color,Urine Light-Yellow Yellow Appearance,Urine Clear Clear Specificy [place],Urine 1.009 1.001-1.030 pH,Urine 6.5 5.0-9.0 Leukocyte Esterase,Urine [...] Notes/Report: Normal Urine-Color yellow Appearance clear Specific [place] 1.010 pH 6.0 Glucose NEG Protein NEG Occult Blood NEG Bilirubin NEG Urobilinogen,Semi-Qn 3.5 (NEG) Nitrite, Urine NEG Ketones NEG WBC Esterase NEG Hemoglobin A1c Reviewed date:06/07/2025 02:41:58 PM Interpretation:6.7% Performing Lab: Notes/Report: 6.7% Hemoglobin A1c 6.7% 5 - 7.9 % Hemoglobin A1c Reviewed date:09/14/2024 03:32:05 PM Interpretation:6.1% Performing Lab: Notes/Report: 6.1% Hemoglobin A1c 6.1% 5 - 7.9 % Hemoglobin A1c Reviewed date:01/18/2025 09:36:20 AM Interpretation: Performing Lab: Notes/Report: Hemoglobin A1c 6.3% 5 - 7.9 % Urinalysis automated Reviewed date:12/20/2024 10:44:16 AM Interpretation: Performing Lab: Notes/Report: Urine-Color YELLOW Appearance CLEAR Specific [place] 1.010 pH 6.0 Glucose NEG Protein NEG Occult Blood NEG Bilirubin NEG Urobilinogen,Semi-Qn 3.5 Nitrite, Urine NEG Ketones NEG WBC Esterase 2+ Urine Drug Screen Reviewed date:12/20/2024 10:46:00 AM Interpretation: Performing Lab: Notes/Report: pH NEG SG NEG Create NEG THC NEG TRENT NEG AMP NEG OPI NEG MAMP NEG PCP NEG BAR NEG BZO NEG MTO NEG MDMA NEG OXY NEG BUP NEG Reason For Referral Reason 09/22 CURT referra l for elective cholecystectomy. Diagnosis 1 Symptomatic cholelit hiasis (K80.20) Referral Organization [facility] Referring Provider First Name Reginaldo Referring Provider Last Name Talon Referring Provider [facility] ctice Referred Provider DOYLE HEATH Referred Provider Specialty General Surg alysa Referral Priority Routine Reason NEW REFERRAL PLACED Pt would like a different pain management. She is displeased with her treatment at her current one. Diagnosis 1 Lumbago with sciatic a, right side (M54.41) Referral Organization [facility] Referring Provider First Name Hair [facility]erring Provider [facility] ctice Referred Provider [facility], MANAG EMENT Referred Provider Specialty Pain Medicin e General Notes Nila Hopkins 2024 08:06:38 AM >PT WAS D/C FROM [facility] Referral Priority Routine Reason PT N/S APPT DO NOT SEND TO DR GUTIERRES!!!! She would like to see pain management in [place]. Diagnosis 1 Neuropathic pain (M7 9.2) Referral Organization [facility] Referring Provider First Name Reginaldo Referring Provider Last Name Talon Referring Provider [facility] ctice Referred Provider [facility] Referred Provider Specialty Pain Medicin e Referral Priority Routine Reason [place]CLIN[place] LVM WITH PT 06/10; [facility] [place] [facility] [place] ALL [place] DUE TO N/S Pt would like one in or near [place] for her low back pain and chronic pain. Diagnosis 1 Other chronic pain ( G89.29) Referral Organization [facility] Referring Provider First Name Hair Referring Provider Last Name Talon Referring Provider [facility] ctice Referred Provider Specialty Pain Medicin e General Notes Nila Hopkins 2024 08:30:38 AM >[facility] [phone] Referral Priority Routine Medications Medication SIG (Take, [...] (TWO) syringes Injection Active OneTouch Delica Plus [id number] - USE TO TEST BLOOD SUGAR 3 TIMES DAILY *NEW PRESCRIPTION REQUEST*; Duration: 90 Active Gabapentin 600 MG 1 tablet Orally Once a day; Duration: 30 day(s) 03/15/2025 Active True Metrix Air Glucose Meter - as directed; Duration: 365 days 06/18/2025 Active RA Alcohol Swabs 70 % use as directed [facility] TO CHECK SUGARS 30; Duration: 30 days Active DULoxetine HCl 40 MG take 1 capsule by m outh twice a day Orally Once a day; Duration: 30 days Not-Cody ing Omeprazole 40 MG take 1 capsule by mo uth once daily; Duration: 30 Active Pen Broxton 31G X 8 MM as directed; Dura tion: 90 days 08/11/2025 Active amLODIPine Besylate 10 MG take 1 tablet by mouth once daily Orally Once a day; Duration: 30 days Active Victoza 18 MG/3ML INJECT 0.6MG SUBCUTANEOUSLY DAILY; Duration: 60 Active OneTouch Ultra - USE TO TEST [...] *NEW PRESCRIPTION REQUEST*; Duration: 90 Active Nystatin 899122 UNIT/GM APPLY TO AFFECTED AREA(S) THREE TIMES A [...] 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 Stress is when someone feels tense, nervous, anxious, or cant sleep at night because their mind is troubled Not at all In the past year have you sp ent more than 2 nights in a row in a usp, senior care, fpc center, or juvenile correctional facility? No Are [...] years, n o ETOH, no street drugs. 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) Type 2 diabetes mellitus with unspecified complications (E11.8) Active confirmed Problem Morbid obesity (disorder) (479688464) Morbid (severe) obesity due to excess calories (E66.01) Active confirmed Problem Hypercalcemia (62639058) Hypercalcemia (E83.52) Active confirmed Problem Tobacco user (494022812) Nicotine dependence, unspecified, uncomplicated (F17.200) Active confirmed Problem Chronic postoperative pain (306996757178074) Other chronic postprocedural pain (G89.28) Active confirmed Problem Chronic pain (62311584) Other chronic pain (G89.29) Active confirmed Problem Essential hypertension (93764190) Essential (primary) hypertension (I10) Active confirmed Problem Sciatica (01147223) Lumbago with sciatica, right side (M54.41) Active confirmed Problem Sciatica (75812115) Lumbago with sciatica, left side (M54.42) Active confirmed Problem Low back pain (264779398) Low back pain (M54.5) Active confirmed Problem Hyperlipidemia (31049313) Hyperlipidemia (E78.5) Active confirmed Problem Anxiety (39797480) Anxiety (F41.9) Active confi rmed Problem Asthma (974734920) Asthma (J45.909) Active conf irmed Problem Neuropathy (121094494) Neuropathy (G62.9) Active confirmed Problem Urinary frequency (361784032) Urinary frequency (R35.0) Active confirmed Problem Chronic pain (41913776) Other chronic pain (G89.29) Active confirmed Problem Chronic sinusitis (77187163) Sinusitis, unspecified chronicity, unspecified location (J32.9) Active confirmed Problem Migraine (84386366) Migraine wit hout status migrainosus, not intractable, unspecified migraine type (G43.909) Active confirmed Problem Pulmonary emphysema (90934044) Pulmonary emphysema, unspecified emphysema type (J43.9) Active confirmed Problem Gastroesophageal reflux disease (004442702) Gastroesophageal reflux disease, esophagitis presence not specified (K21.9) Active confirmed Problem Insomnia (121228906) Insomnia, unspecified type (G47.00) Active confirmed Problem Infection of tooth (disorder) (799869256) Tooth infection (K04.7) Active confirmed Problem Xerostomia (60636350) Xerostomia (K11.7) Active confirmed Problem Difficulty walking (709004343) Difficulty walking (R26.2) Active confirmed Problem Chronic sinusitis (99948767) Chronic sinusitis, unspecified location (J32.9) Active confirmed Problem Sciatica (76110081) Sciatica of right side (M54.31) Active confirmed Problem Chronic idiopathic constipation (28127311) Chronic idiopathic constipation (K59.04) Active confirmed Problem Callous ulcer (morphologic abnormality) (002268040) Callous ulcer, limited to breakdown of skin (L98.491) Active confirmed Problem Mixed bipolar affective disorder, moderate (014182560) Bipolar 1 disorder, mixed, moderate (F31.62) Active confirmed Problem Major depression, single episode (18276904) Major depressive episode (F32.9) Active confirmed Problem Bipolar 2 disorder (31083510) Bipolar 2 disorder (F31.81) Active confirmed Problem Hypercalcemia (95690937) Serum calcium elevated (E83.52) Active confirmed Problem Stenosis of left carotid artery (270621273896953) Stenosis of left carotid artery (I65.22) Active confirmed Problem Type II diabetes mellitus without complication (217092923) Type 2 diabetes mellitus without complication, unspecified whether fdc insulin use (E11.9) Active confirmed Problem Alcohol abuse (13418120) Alcohol use disorder, mild, abuse (F10.10) Active confirmed Problem Atherosclerosis of both carotid arteries (625445729232745) Atherosclerosis of both carotid arteries (I65.23) Active confirmed Problem Gait difficulty (27675423) Gait difficulty (R26.9) Active confirmed Problem Persistent depressive disorder (8786698115) Persistent depressive disorder (F34.1) Active confirmed Problem Body mass index 40+ - severely obese (588679112) Body mass index [BMI] 40.0-44.9, adult (Z68.41) Active confirmed Problem Cholelithiasis without obstruction (15360941) Symptomatic cholelithiasis (K80.20) Active confirmed Vital Signs Heart Rate 82 /min 07/01/2025 Temperature 98.1 degrees Fahrenheit 07/01/2025 Respiratory Rate 20 /min 07/01/2025 Oximetry 91 % 07/01/2025 Blood pressure diastolic 72 mm Hg 07/01/2025 Height 59 in 07/01/2025 Blood pressure systolic 144 mm Hg 07/01/2025 Weight 230 lbs 07/01/2025 BMI 46.45 kg/m2 07/01/2025 Encounters Encounter Location Date Provider Diagnosis [facility] [address] [place] [address] 08/15/2025 Reginaldo Hanley [place] [address] [place] [address] 08/18/2024 Reginaldo Hanley Head lice B85.0 [facility] [address] [place] [address] 08/23/2024 Reginaldo Hanley [facility] [address] [place] [address] 08/27/2024 Reginaldo Hanley Symptomatic cholelithiasis K80.20 [facility] [address] [place] [address] 09/03/2024 Reginaldo Hanley Nausea and vomiting, unspecified vomiting type R11.2 [facility] [address] [place] [address] 09/09/2024 [facility] [address] [place] [address] 09/27/2024 Hair Hana Nausea and vomiting, unspecified vomiting type R11.2 [facility] [address] [place] [address] 10/12/2024 [facility] An[facility] F41.9 [facility] [place] [address] 10/20/2024 [place] [address] [place] [address] 10/28/2024 [facility] Nausea and vomiting, unspecified vomiting type R11.2 [place] [address] [place] [address] 10/29/2024 [place] [address] [place] [address] 11/04/2024 [facility] Low back pain M54.[address] [place] [address] [place] [address] 11/16/[address] [place] [address] [place] [address] 11/18/[address] [place] [address] [place] [address] 12/03/[address] [place] [address] [place] [address] 12/13/2024 [facility] [address] [address] 01/03/2025 [facility] [address] [place] [place] [address] 01/24/2025 [facility] Obesity, class [address] [place] [address] 01/24/[address] [place] [address] [place] [address] 01/27/2025 [place] [address] [place] [address] 01/31/2025 [place] [address] [place] [address] 02/01/2025 [place] [address] [place] [address] 03/15/2025 Reginaldo Hanley Insomnia, unspecifie d type G47.00 and Anxiety F41.9 [facility] [address] [place] [address] 03/15/2025 Reginaldo Hanley Anxiety F41.9 [facility] [address] [place] [address] 04/05/2025 Hair Talon Intertriginous candidiasis B37.2 [facility] [address] [place] [address] 06/14/2025 [place] [address] [place] [address] 06/16/2025 [place] [address] [place] [address] 06/17/2025 [facility] Pulmonary emphysema, unspecified emphysema type J43.9 [facility] [address] [place] [address] 06/17/2025 [facility] [address] [place] [address] 06/20/2025 [facility] [address] [place] [address] 06/22/2025 [facility] [address] [place] [address] 06/24/2025 [place] [address] [place] [address] 06/24/2025 [facility] [address] [place] [address] 07/04/2025 [facility] [address] [place] [address] 07/04/2025 [facility] [address] [place] [address] 07/06/2025 [place] [address] [place] [address] 07/12/2025 [place] [address] [place] [address] 07/28/2025 [place] [address] [place] [address] 08/08/2025 [place] [address] [place] [address] 08/11/2025 [place] [address] [place] [address] 08/27/2024 [facility] Symptomatic cholelithiasis K80.20 ; Head lice B85.0 ; Acute cystitis without hematuria N30.00 ; Difficulty walking R26.2 and Gait difficulty R26.9 [place] [address] [place] [address] 09/14/2024 [facility] Mitchell[facility]amaal Anxiety F41.9 ; Intertriginous candidiasis B37.2 ; Chest congestion R09.89 ; Head lice B85.0 ; Nausea and vomiting, unspecified vomiting type R11.2 ; Essential (primary) hypertension I10 and Type 2 diabetes mellitus with unspecified complications E11.8 [facility] [address] [place] [address] 11/04/2024 Hairandrew Mitchelljamaal Type 2 diabetes mellitus with unspecified complications E11.8 ; Pain management contract signed Z02.89 ; Intertriginous candidiasis B37.2 ; Anxiety F41.9 ; Sciatica of right side M54.31 and Low back pain M54.5 [facility] [address] [place] [address] 12/20/2024 Reginaldo Hanley Pain management contract broken Z91.148 ; Pain in right hip M25.551 ; Pain in left hip M25.552 ; Lumbago with sciatica, right side M54.41 ; Lumbago with sciatica, left side M54.42 ; Other chronic pain G89.29 ; Essential hypertension I10 ; Right flank pain R10.9 and Increased urinary frequency R35.0 [facility] [address] [place] [address] 01/18/2025 Reginaldo Hanley Type 2 diabetes mellitus [...] depressive disorder F34.1 and Essential hypertension I10 [facility] [address] [place] [address] 03/15/2025 Herminia Gonzalez Lack of access to transportation Z91.89 [facility] [address] [place] [address] 01/18/2025 Herminia Gonzalez Lack of access to transportation Z91.89 [facility] [address] [place] [address] 12/20/2024 Herminia Gonzalez Lack of access to transportation Z91.89 [facility] [address] [place] [address] 08/27/2024 Herminia Gonzalez Lack of access to transportation Z91.89 [facility] [address] [place] [address] 03/15/2025 Reginaldo Hanley Neuropathic pain M79 .2 ; Neuropathy G62.9 ; Asthma J45.909 ; Type 2 diabetes mellitus with unspecified complications E11.8 and Screening due Z13.9 [facility] [address] [place] [address] 06/07/2025 Reginaldo Hanley Type 2 diabetes mellitus with unspecified complications E11.8 ; Low back pain M54.5 ; Sciatica of right side M54.31 ; Gait difficulty R26.9 ; Other chronic pain G89.29 ; Screening due Z13.9 ; Intertriginous candidiasis B37.2 ; Morbid (severe) obesity due to excess calories E66.01 and Pulmonary emphysema, unspecified emphysema type J43.9 [facility] [address] [place] [address] 07/01/2025 Reginaldo Hanley Lumbago with sciatic a, left side M54.42 ; Lumbago with sciatica, right side M54.41 ; Difficulty walking R26.2 ; Other chronic pain G89.29 ; Gait difficulty R26.9 ; Low back pain M54.5 and Sciatica of right side M54.31 Assessments Encounter Date Diagnosis (ICD Code) Assessment Notes Treatment Notes Treatment Clinical Notes Section Notes 08/18/2024 Head lice (ICD-10 - B85.0) 08/27/2024 Lack of access to transportation (ICD-10 - Z91.89) Pt transported to and from appointment 08/27/2024 Head lice (ICD-10 - B85.0) 08/27/2024 Symptomatic cholelithiasis (ICD-10 - K80.20) For [...] Follow-up in 1 month for A1c check. 09/14/2024 Anxiety (ICD-10 - F41.9) I have [...] at this time. Follow-up in 1 month. 01/18/2025 Lack of access to transportation (ICD-10 [...] with sciatica, right side (ICD-10 - M54.41) 06/17/2025 Pulmonary emphysema, unspecified emphysema type (ICD-10 - J43.9) 12/20/2024 Pain in right hip (ICD-10 - [...] Follow-up in 1 month concerning blood pressure. 12/20/2024 Lack of access to transportation (ICD-10 - Z91.89) Pt transported to and from appointment 09/03/2024 Nausea and vomiting, unspecified vomiting type (ICD-10 - R11.2) 08/27/2024 Symptomatic cholelithiasis (ICD-10 - K80.20) 07/01/2025 Lumbago with sciatica, left side (ICD-10 - M54.42) Medical necessity as described as above. I will print off the note today and give it to the patient. I will personally sign it myself. Preceptor will also sign the note from today as well. We will send the paperwork with the fax from the rollator supply [employer]. We will await their decision. Prescription for rollator is sent at this time. All questions and concerns were addressed to the patient. Follow-up for chronic needs as scheduled. 06/07/2025 Type 2 diabetes mellitus with unspecified [...] like a pain management referral to the [facility]. I have sent this at this time. Pertaining to her hospital visit in [place], I will have the patient sign a medical release form to get more information about her hospital stay there and alter treatment accordingly. For her colonoscopy that is needed, I instruct the patient to follow-up with her press machine feeder to schedule this. Patient voices understanding to this. Refills are placed at this time for losartan, nystatin, and epinephrine. Patient also needs a refill of her beta-rory for her nebulizer. This has been placed at this time. All questions and concerns were addressed with the patient. Follow-up in 3 months for chronic conditions. 06/07/2025 Low back pain (ICD-10 - M54.5) 04/05/2025 Intertriginous candidiasis (ICD-10 - B37.2) 03/15/2025 Neuropathy (ICD-10 - G62.9) 03/15/2025 Neuropathic pain (ICD-10 - M79.2) - Referral to pain management has been sent to [place] to ensure appropriate management of pain symptoms.- [...] consultation is available to accommodate transportation challenges. 03/15/2025 Lack of access to transportation (ICD-10 - Z91.89) Pt transported to and from appointment 03/15/2025 Anxiety (ICD-10 - F41.9) 03/15/2025 Insomnia, unspecified type (ICD-10 - G47.00) 01/24/2025 Obesity, class 3 (ICD-10 - E66.813) 11/04/2024 Low back pain (ICD-10 - M54.5) 03/15/2025 Asthma (ICD-10 - J45.909) 03/15/2025 Anxiety (ICD-10 - F41.9) 06/07/2025 Sciatica of right side (ICD-10 - M54.31) 07/01/2025 Lumbago with sciatica, right side (ICD-10 - M54.41) 12/20/2024 Pain in left hip (ICD-10 - M25.552) 01/18/2025 Screening due (ICD-10 - Z13.9) 11/04/2024 Intertriginous candidiasis (ICD-10 - B37.2) 09/14/2024 Chest congestion (ICD-10 - R09.89) 08/27/2024 Acute cystitis without hematuria (ICD-10 - N30.00) 08/27/2024 Difficulty walking (ICD-10 - R26.2) 09/14/2024 Head lice (ICD-10 - B85.0) 11/04/2024 Anxiety (ICD-10 - F41.9) 12/20/2024 Lumbago with sciatica, right side (ICD-10 - M54.41) 01/18/2025 Screening mammogram for breast cancer (ICD-10 - Z12.31) 07/01/2025 Difficulty walking (ICD-10 - R26.2) 03/15/2025 Type 2 diabetes mellitus with unspecified complications (ICD-10 - E11.8) 06/07/2025 Gait difficulty (ICD-10 - R26.9) 03/15/2025 Screening due (ICD-10 - Z13.9) 06/07/2025 Other chronic pain (ICD-10 - G89.29) 07/01/2025 Other chronic pain (ICD-10 - G89.29) 12/20/2024 Lumbago with sciatica, left side (ICD-10 - M54.42) 11/04/2024 Sciatica of right side (ICD-10 - M54.31) 01/18/2025 Morbid (severe) obesity due to excess calories (ICD-10 - E66.01) 09/14/2024 Nausea and vomiting, unspecified vomiting type (ICD-10 - R11.2) 08/27/2024 Gait difficulty (ICD-10 - R26.9) 09/14/2024 Essential (primary) hypertension (ICD-10 - I10) 11/04/2024 Low back pain (ICD-10 - M54.5) 01/18/2025 Body mass index [BMI] 40.0-44.9, adult (ICD-10 - Z68.41) 12/20/2024 Other chronic pain (ICD-10 - G89.29) 07/01/2025 Gait difficulty (ICD-10 - R26.9) 06/07/2025 Screening due (ICD-10 - Z13.9) 07/01/2025 Low back pain (ICD-10 - M54.5) 06/07/2025 Intertriginous candidiasis (ICD-10 - B37.2) 01/18/2025 Obesity, class 3 (ICD-10 - E66.813) 12/20/2024 Essential hypertension (ICD-10 - I10) 09/14/2024 Type 2 diabetes mellitus with unspecified complications (ICD-10 - E11.8) 12/20/2024 Right flank pain (ICD-10 - R10.9) 01/18/2025 Major depressive episode (ICD-10 - F32.9) 06/07/2025 Morbid (severe) obesity due to excess [...] hinton, 09/09/2025 01:00:00 PM, [address], [place], [address], Insurance Providers Payer Name Payer Address Payer Phone Subscriber Number Group Number Insured Name Patient Relationship to Insured Coverage Start Date Coverage End Date [employer] [place] [employer] [address] [place] [address] [id number] ALIRIO CUNHA Self - patient is the insured 3 Wrap ABD [facility] [address] [place] [address] [id number] ALIRIO CUNHA Self - patient is the insured 3 [employer] -termed 22 [address] [place] [address] [phone] [id number] ALIRIO CUNHA Self - patient is the insured 9 3 zMEDICAID ABD after [employer] termed 22 [address] [place] [address] [id number] ALIRIO CUNHA Self - patient is the insured 9 3 zBH [employer]- termed 22 [address] [place] [address] [id number] ALIRIO CUNHA Self - patient is the insured 1 zDENTAL DQ [employer]- termed 22 [address] [place] [address] [id number] ALIRIO CUNHA Self - patient is the insured 1 zDental Medicaid ABD after [employer] termed 22 [address] [place] [address] [id number] ALIRIO CUNHA Self - patient is the insured 1 MEDICAID TRANSPORTAT ION [address] [place] [address] [phone] [id number] ALIRIO CUNHA Self - patient is the insured 4 .Transport ABD [employer] wrap [address] [place] [address] [phone] [id number] ALIRIO CUNHA Self - patient is the insured 4 [facility] [address] [place] [address] [id number] ALIRIO CUNHA Self - patient is the insured 4 5 Medical (General) History Medical History History ICD Code LEVEL 4 HTN DM OA of spine bipolar emphysema Hernia in esophagus HTN (hypertension) I10 COPD gallstones Surgical History Surgery Date(Month/Year) back surgery 04,05,06 tonsilectomy as child appendectomy as teenager TKA R knee Aug 2014 TKA L knee 2014 total abdominal hysterectomy 2003 throat surgery [id number] gallbladder 09/2024 Hospitalization History Reason Date(Month/Year) Vaginal Lacerations 2018 ICU stay for pneumonia 2012
== END 2025-08-18 07:05 | disposition home or self-care (01) ==
LOC: ER 06:51
PROVIDERS: Emergency Provider Emergency Medicine
DX: M54.41 Lumbago with sciatica, right side (principal); G89.29 Other chronic pain
CPT/HCPCS: 96372; 99284; J1171; J2360; Q0164

== ENCOUNTER 2025-10-02 11:32 | Emergency (ER) | payer OTHER, SELFPAY ==
--- OUTSIDE RECORDS SUMMARY | 2019-12-12 19:00 | XMS_ITS | Continuity of Care Document ---
Author Organization [facility] Address [address] [place] [address] Phone Care Team Providers Care Varnish Mixer Name Role Phone Pavlock DO, Max Unavailable Unavailable Allergies, Adverse Reactions, Alerts Substance Reaction Status Criticality shellfish derived Active No Informa tion ibuprofen Active No Information TRAMADOL HCL Active No Information bee venom protein (honey bee) Active No Information DYE Active No Information Sulfa (Sulfonamide Antibiotics) Active No Information PENICILLIN Active No Information Medications Medication Instructions Dosage Effective Dates (start - stop) Status Comments Vitamin D3 1,000 unit capsule 2 tablets by mouth daily - Active propranolol ER 160 mg capsule,24 hr,extended release take 1 capsule by oral route every day 160 MG - Active Cymbalta 60 mg capsule,delayed release take 2 capsule by oral route every day 120 MG - Active hydrochlorothiazide 25 mg tablet take 1 tablet by oral route every day 25 MG - Active omeprazole 40 mg capsule,delayed release take 1 capsule by oral route every day before a meal 40 MG - Active Cozaar 50 mg tablet take 1 tablet by oral route every day 50 MG - Active Latuda 40 mg tablet take 1 tablet by oral route every day with food (at least 350 calories) 40 MG - Active Lipitor 80 mg tablet take 1 tablet by oral route every day 80 MG - Active fluticasone propionate 50 mcg/actuation nasal spray,suspension spray 1 - 2 spray by intranasal route 2 times every day in each nostril as needed 50-100 MCG - Active albuterol sulfate HFA 90 mcg/actuation aerosol inhaler inhale 2 puff by inhalation route every 4 - 6 hours as needed 180 MCG - Active cyclobenzaprine 10 mg tablet 1 tablet by mouth three times a day PRN - Active Procedures Procedure Date Alcohol and/or drug services- Acute Deto x Alcohol and/or drug services- Acute Deto x Alcohol and/or drug services- Acute Deto x Alcohol and/or drug services- Acute Deto x Alcohol and/or drug services- Acute Deto x DRUG TEST PRSMV DIR OPT OBS URINE TEST Alcohol and/or drug services- Acute Deto x Alcohol and/or drug services- Acute Deto x Alcohol and/or drug services- Acute Deto x Alcohol and/or drug services- Acute Deto x Alcohol and/or drug services- Acute Deto x Advance Directives Directive Yes / No Effective Date File Name No Information Encounters Encounter Description Practice Location Reason(s) For Visit Diagnoses Date Provider Providers Copied on Encounter [facility], [address], [place], [id number] , [place] tel: [phone] [facility] Alcohol dependence with withdrawal, uncomplicatedCocaine dependence with withdrawal 0 Pavlock DO Max. [address], [place], [id number] , [place]. tel: [phone] [facility], [address], [place], [id number] , [place] tel: [phone] [facility] Alcohol dependence with withdrawal, uncomplicatedCocaine dependence with withdrawal 0 Pavlock DO Max. [address], [place], [id number] , [place]. tel: [phone] [facility], [address], [place], [id number] , [place] tel: [phone] [facility] Alcohol dependence with withdrawal, uncomplicatedCocaine dependence with withdrawal 0 Pavlock DO Max. [address], [place], [id number] , [place]. tel: [phone] [facility], [address] [place] [address], [id number] , [place] tel: [phone] [facility] Alcohol dependence with withdrawal, uncomplicatedCocaine dependence with withdrawal 0 Pavlock DO Max. [address], [place], [id number] , [place]. tel: [phone] [facility], [address], [place], [id number] , [place] tel: [phone] [facility] alcohol and cocaine dependence (chief complaint) Alcohol dependence with withdrawal, uncomplicatedCocaine dependence with withdrawal 0 Lawrence Lopez. [address], [place], [id number] , [place]. tel: [phone] [facility], [address], [place], [id number] , [place] tel: [phone] [facility] Alcohol dependence with withdrawal, uncomplicatedCocaine dependence with withdrawalEncounter for test, result negative 0 Pavlock DO Max. [address], [place], [id number] , [place]. tel: [phone] [facility], [address], [place], [id number] , [place] tel: [phone] [facility] Alcohol dependence with withdrawal, uncomplicatedCocaine dependence with withdrawalEncounter for test, result negative 0 Pavlock DO Max. [address], [place], [id number] , [place]. tel: [phone] [facility], [address], [place], [id number] , [place] tel: [phone] [facility] Alcohol dependence with withdrawal, uncomplicated 0 Pavlock DO Max. [address], [place], [id number] , [place]. tel: [phone] [facility], [address], [place], [id number] , [place] tel: [phone] [facility] Alcohol dependence with withdrawal, uncomplicated 0 Pavlock DO Max. [address], [place], [address] , [place]. tel: [phone] [facility], [address], [place], [id number] , [place] tel: [phone] [facility] alcohol and cocaine dependence (chief complaint) Alcohol dependence with withdrawal, uncomplicatedCocaine dependence with withdrawal 0 Lawrence Lopez. [address], [place], [id number] , . tel: [phone] [facility], [address], [place], [id number] , [place] tel: [phone] [facility] Alcohol dependence with withdrawal, uncomplicated 0 Pavlock DO Max. [address], [place], [id number] , [place]. tel: [phone] [facility], [address] [place] [address], [id number] , tel: [phone] [facility] Alcohol dependence with withdrawal, uncomplicatedCocaine dependence with withdrawal 0 Pavlock DO Max. [address], [place], [id number] , [place]. tel: [phone] Family History Family Member Type Diagnosis Age At Onset Father Problem (finding) malignant neoplasm of l alan Sister Problem (finding) seizure disorder Mother Problem (finding) malignant neoplasm of t hyroid Mother Problem (finding) malignant neoplasm of u terus Payers Payer name Insurance type Covered green party ID [employer]orkyl[employer] tidavid(s) [employer] Medicaid [place] [id number] Social History Type Description Quantity Date Captured Comments Alcohol Use Details Unknown Caffeine Use Details Unknown Tobacco Use Status Smoking Status No Information Sex Female Sexual Orientation Straight or heterosexual Gender Identity Female Vital Signs Date / Time: Height Weight BMI Pulse Rate Blood Pressure Temperature Respiratory Rate Body Surface Area Head Circumference Head Circ. Percentile Wt./Sharad. Percentile BMI percentile Pulse Ox Inhaled Ox 9:07 AM 85 /min 155/92 mm[Hg] 97.50 F 99 % Chief Complaint And Reason For Visit No Information Reason For Referral Reason For Referral No Information History Of Present Illness Encounter Date Complaint History Of Prese nt Illness alcohol and cocaine dependence [age] year old female checked in to detox yesterday and reports last using crack cocaine and consuming alcohol 3 days ago. She had been drinking 6-12 talls/day and using a 1/16th oz/day of crack for last week after leaving ER following detox. She has been using crack for 20 years and drinking heavy for 44 years. She last attended detox last week.surgical hx- appendix, tonsils, 3 back surgeriesallergies- penicillin, sulfa, IVP dye, steroids, motrin, ultram, darvocetmeds- nonetobacco- 5-6/dayplans upon completing detox- AA meetings. alcohol and cocaine dependence [age] year old female checked in to detox yesterday and reports last using crack cocaine 2 days ago and consuming alcohol 5 days ago. She typically uses $40/day of crack and drinks 6-24 beers, 3-4x/week. She has been using crack for 20 years and drinking heavy for 44 years. She attended detox 3 times prior with the last being in the ssurgical hx- appendix, tonsils, 3 back surgeriesallergies- penicillin, sulfa, IVP dye, steroids, motrin, ultram, darvocetmeds- nonetobacco- 5-6/dayplans upon completing detox- AA meetings. Functional Status Date Functional Assessmen t No Information Instructions Date Instruction Additional Infor mation No Information Assessments Type Assessment Date assessment Alcohol dependence with withdraw al, uncomplicated assessment Cocaine dependence with withdraw al Patient Care Teams Name Effective Dates (start - stop) Status Members No Information
--- OUTSIDE RECORDS SUMMARY | 2025-04-14 05:00 | XMS_ITS ---
Author Organization [facility] Address [address] [place] [address] Care Team Providers Care Registered Nurse Nursery Name Role Phone Reginaldo Hanley Primary Care Provider REASON FOR VISIT 1 month f/u chronic Social History Sex Assigned At : Social History Observation Description Sex Assigned At Female Encounters Encounter Location Date Provider Diagnosis [facility] [address] [place] [address] 04/14/2025 Reginaldo Hanley Plan Of Treatment Next Appt Details Provider Name:Reginaldo hinton, 10/10/2025 01:30:00 PM, [address], [place], [address], Progress Notes * ALIRIO CUNHA DDOB: [birth year] (65 yo F)Acc No.[id number]:04/14/2025 Progress Notes Patient: Nessa ALIRIO FOWLER Account Number:[id number] Provider:?Reginaldo Hanley DODOB:1960???Age: 64 Y???Sex:FemaleDate:04/14/2025Phone:[phone]:[address] [place] [address] [place], [id number] Subjective: * Chief Complaints: * 1 month f/u chronic Billing Information: * Procedure Codes: * Electronic signature of Reginaldo Hanley DO on 10/02/2025 at 11:40 AM ESTSign off status: Pending * Appointment Provider: Amee Hanley DO Date: 0 04/14/2025 Generated for Printing/Faxing/eTransmitting on:?10/02/2025 11:40 AM EST
--- OUTSIDE RECORDS SUMMARY | 2025-04-14 06:15 | XMS_ITS ---
Author Organization [facility] Address [address] [place] [address] Care Team Providers Care Flat Lock Operator Name Role Phone Reginaldo Hanley Primary Care Provider [phone] Velasquez Karen Fidelia Retana [phone] REASON FOR VISIT [facility] @ 61 Social History Sex Assigned At : Social History Observation Description Sex Assigned At Female Encounters Encounter Location Date Provider Diagnosis [facility] [address] [place] [address] 04/14/2025 Fidelia Jones Plan Of Treatment Next Appt Details Provider Name:Reginaldo ihnton, 10/10/2025 01:30:00 PM, [address] [place], [address], Progress Notes * ALIRIO CUNHA DDOB: [birth year] (65 yo F)Acc No.[id number]:04/14/2025 Patient:?ALIRIO CUNHA Account Number:[id number] Provider:?Fidelia JonesDOB:1960???Age:64 Y ???Sex:FemaleDate:04/14/2025Phone:[phone]:[facility] [place], [id number]:Reginaldo Hanley Subjective: * Chief Complaints: * [facility] @ 10 Billing Information: * Procedure Codes: * Electronic signature of REY Hou FNP on 10/02/2025 at 11:39 AM EST Sign off status: Pending * Appointment Provider: Thelma Jones Date: 0 04/14/2025 Generated for Printing/Faxing/eTransmitting on:?10/02/2025 11:39 AM EST
--- OUTSIDE RECORDS SUMMARY | 2025-06-23 10:30 | XMS_ITS ---
Author Organization [facility] Address [address] [place] [address] Care Team Providers [employer] Name Role Phone Reginaldo Hanley Primary Care Provider [phone] REASON FOR VISIT rollator issues/ ADLS Medications Medication SIG (Take, Route, Frequency, Duration) Notes Start Date End Date Status amLODIPine Besylate 10 MG Tablet take 1 tablet by mouth once daily Orally Once a day; Duration: 30 days ActiveOmeprazole 40 MG Capsule Delayed Releasetake 1 capsule by mouth once daily; Duration: 30ActiveTirzepatide 2.5 MG/0.5ML Solution Auto-injectorTake 2.5 mg Subcutaneous Once a week; Duration: 28 days/5ActiveWalker - Miscellaneousas directed; Duration: 365 days5ActiveRA Alcohol Swabs 70 % Paduse as directed daily TO CHECK SUGARS 30; Duration: 30 daysActiveDULoxetine HCl 40 MG Capsule Delayed Release Particlestake 1 capsule by mouth twice a day Orally Once a day; Duration: 30 daysNot-Taking/PRNtest strips Freestyle Lite DIAGNOSIS: DIABETES WITH UNSPECIFIED COMPLICATION 250.90as directed externally twice a day; Duration: 90 days5ActiveGabapentin 600 MG Tablet 1 tablet Orally Once a day; Duration: 30 day(s)5ActivehydrOXYzine Pamoate 50 MG Capsule 1 capsule at bedtime as needed Orally every eight hours; Duration: 90 days As needed for anxiety attacks 4ActiveLancets - Miscellaneousas directed fingertip three times a day; Duration: 30 daysE11.9ActiveLevalbuterol HCl 0.63 MG/3ML Nebulization Solution3 mL as needed Inhalation every 6 hours; Duration: 30 days5ActiveAlcohol Prep 70 % PadUSE TO STERILIZE SKIN FOR TESTING BLOOD SUGAR THREE TIMES A DAY *NEW PRESCRIPTION REQUEST*; Duration: 3ActiveAspercreme Lidocaine 4 % CreamAPPLY TO AFFECTED AREA(S) TOPICALLY NEEDED *NEW PRESCRIPTION REQUEST*; Duration: 76 ActiveTrue Metrix Air Glucose Meter - Deviceas directed; Duration: 365 days 5ActiveGlucometer - -place 1 drop of blood externally TID12/07/2021 ActiveAtorvastatin Calcium 80 MG TabletTAKE 1 TABLET BY MOUTH EVERY DAY *NEW PRESCRIPTION REQUEST*; Duration: 90ActiveEPINEPHrine 0.3 MG/0.3ML Solution Auto-injectorINJECT DIRECTED NEEDED FOR ALLERGIC REACTION *NEW PRESCRIPTION REQUEST*; Duration: 6ActiveFluticasone Propionate 50 MCG/ACT Suspensioninstill 1 spray into each nostril twice a day if needed Nasally twice a day; Duration: 90 daysActiveMelatonin 3 MG TabletTAKE 3 TABLETS BY MOUTH EVERY NIGHT AT BEDTIME NEEDED FOR SLEEP *NEW PRESCRIPTION REQUEST*; Duration: 90 ActiveLosartan Potassium 50 MG TabletTAKE 1 TABLET BY MOUTH EVERY DAY *NEW PRESCRIPTION REQUEST*; Duration: 90ActiveOneTouch Ultra - StripUSE TO TEST BLOOD SUGAR 3 TIMES DAILY *NEW PRESCRIPTION REQUEST*; Duration: 100ActivePropranolol HCl ER 160 MG Capsule Extended Release 24 HourTAKE ONE (1) CAPSULE BY MOUTH ONCE DAILY *NEW PRESCRIPTION REQUEST*; Duration: 90ActivemetFORMIN HCl ER 750 MG Tablet Extended Release 24 HourTAKE 1 TABLET BY MOUTH EVERY DAY WITH EVENING MEAL *NEW PRESCRIPTION REQUEST*; Duration: 90ActiveNystatin 168522 UNIT/GM PowderAPPLY TO AFFECTED AREA(S) THREE TIMES A DAY *NEW PRESCRIPTION REQUEST*; Duration: 30ActiveSymbicort 80-4.5 MCG/ACT AerosolINHALE TWO (2) PUFFS BY MOUTH TWICE DAILY *NEW PRESCRIPTION REQUEST*; Duration: 90ActivePromethazine HCl 12.5 MG Tablet1 tablet as needed Orally every 6 hrs; Duration: 30 day(s)Active OneTouch Delica Plus [id number] - MiscellaneousUSE TO TEST BLOOD SUGAR 3 TIMES DAILY *NEW PRESCRIPTION REQUEST*; Duration: 90ActiveEPINEPHrine 0.3 MG/0.3ML Solution Prefilled SyringeInject one syringe in the outer thigh as needed for allergic reaction; Max daily dose 2 (TWO) syringes InjectionActive Social History Sex Assigned At : Social History Observation Description Sex Assigned At Female Encounters Encounter Location Date Provider Diagnosis [facility] [address] [place] [address] 06/23/2025 Reginaldo Hanley Plan Of Treatment Next Appt Details Provider Name:Reginaldo Potts Paula hinton, 10/10/2025 01:30:00 PM, [address], [place], [address], Progress Notes * ALIRIO CUNHA DDOB: [birth year] (65 yo F)Acc No.[id number]:06/23/2025 Virtual Primary Care Visit Patient: Nessa ALIRIO FOWLER Account Number:[id number] Provider:?DIPIKA CarterOB:1960???Age: 64 Y???Sex:FemaleDate:06/23/2025Phone:[phone]:[id number] [facility] Subjective: * Chief Complaints: * r ollator issues/ ADLS * Medications: T akingGlucometer - - place 1 drop of blood externally TID Lancets - Miscellaneous as directed fingertip three times a day , Notes to Pharmacist: E11.9test strips Freestjoshua Pack DIAGNOSIS: DIABETES WITH UNSPECIFIED COMPLICATION 250.90 as directed externally twice a day , stop date 10/30/2025hydrOXYzine Pamoate 50 MG Capsule 1 capsule at bedtime as needed Orally every eight hours As needed for anxiety attacksGabapentin 600 MG Tablet 1 tablet Orally Once a day RA Alcohol Swabs 70 % Pad use as directed daily TO CHECK SUGARS 30 Omeprazole 40 MG Capsule Delayed Release take 1 capsule by mouth once daily amLODIPine Besylate 10 MG Tablet take 1 tablet by mouth once daily Orally Once a day Walker - Miscellaneous as directed Tirzepatide 2.5 MG/0.5ML Solution Auto-injector Take 2.5 mg Subcutaneous Once a week , stop date 07/05/2025EPINEPHrine 0.3 MG/0.3ML Solution Prefilled Syringe Inject one syringe in the outer thigh as needed for allergic reaction; Max daily dose 2 (TWO) syringes Injection OneTouch Delica Plus [id number] - Miscellaneous USE TO TEST BLOOD SUGAR 3 TIMES DAILY *NEW PRESCRIPTION REQUEST* Promethazine HCl 12.5 MG Tablet 1 tablet as needed Orally every 6 hrs Propranolol HCl ER 160 MG Capsule Extended Release 24 Hour TAKE ONE (1) CAPSULE BY MOUTH ONCE DAILY *NEW PRESCRIPTION REQUEST* OneTouch Ultra - Strip USE TO TEST BLOOD SUGAR 3 TIMES DAILY *NEW PRESCRIPTION REQUEST* Symbicort 80-4.5 MCG/ACT Aerosol INHALE TWO (2) PUFFS BY MOUTH TWICE DAILY *NEW PRESCRIPTION REQUEST* Nystatin 113952 UNIT/GM Powder APPLY TO AFFECTED AREA(S) THREE TIMES A DAY *NEW PRESCRIPTION REQUEST* metFORMIN HCl ER 750 MG Tablet Extended Release 24 Hour TAKE 1 TABLET BY MOUTH EVERY DAY WITH EVENING MEAL *NEW PRESCRIPTION REQUEST* Losartan Potassium 50 MG Tablet TAKE 1 TABLET BY MOUTH EVERY DAY *NEW PRESCRIPTION REQUEST* Melatonin 3 MG Tablet TAKE 3 TABLETS BY MOUTH EVERY NIGHT AT BEDTIME NEEDED FOR SLEEP *NEW PRESCRIPTION REQUEST* Fluticasone Propionate 50 MCG/ACT Suspension instill 1 spray into each nostril twice a day if needed Nasally twice a day EPINEPHrine 0.3 MG/0.3ML Solution Auto-injector INJECT DIRECTED NEEDED FOR ALLERGIC REACTION *NEW PRESCRIPTION REQUEST* Atorvastatin Calcium 80 MG Tablet TAKE 1 TABLET BY MOUTH EVERY DAY *NEW PRESCRIPTION REQUEST* Aspercreme Lidocaine 4 % Cream APPLY TO AFFECTED AREA(S) TOPICALLY NEEDED *NEW PRESCRIPTION REQUEST* Alcohol Prep 70 % Pad USE TO STERILIZE SKIN FOR TESTING BLOOD SUGAR THREE TIMES A DAY *NEW PRESCRIPTION REQUEST* Levalbuterol HCl 0.63 MG/3ML Nebulization Solution 3 mL as needed Inhalation every 6 hours True Metrix Air Glucose Meter - Device as directed Taking Glucometer - - place 1 drop of blood externally TID Taking Lancets - Miscellaneous as directed fingertip three times a day , Notes to Pharmacist: E11.9Taking test strips Mary Pack DIAGNOSIS: DIABETES WITH UNSPECIFIED COMPLICATION 250.90 as directed externally twice a day , stop date 10/30/2025Taking hydrOXYzine Pamoate 50 MG Capsule 1 capsule at bedtime as needed Orally every eight hours As needed for anxiety attacksTaking Gabapentin 600 MG Tablet 1 tablet Orally Once a day Taking RA Alcohol Swabs 70 % Pad use as directed daily TO CHECK SUGARS 30 Taking Omeprazole 40 MG Capsule Delayed Release take 1 capsule by mouth once daily Taking amLODIPine Besylate 10 MG Tablet take 1 tablet by mouth once daily Orally Once a day Taking Walker - Miscellaneous as directed Taking Tirzepatide 2.5 MG/0.5ML Solution Auto-injector Take 2.5 mg Subcutaneous Once a week , stop date 07/05/2025Taking EPINEPHrine 0.3 MG/0.3ML Solution Prefilled Syringe Inject one syringe in the outer thigh as needed for allergic reaction; Max daily dose 2 (TWO) syringes Injection Taking OneTouch Delica Plus [id number] - Miscellaneous USE TO TEST BLOOD SUGAR 3 TIMES DAILY *NEW PRESCRIPTION REQUEST* Taking Promethazine HCl 12.5 MG Tablet 1 tablet as needed Orally every 6 hrs Taking Propranolol HCl ER 160 MG Capsule Extended Release 24 Hour TAKE ONE (1) CAPSULE BY MOUTH ONCE DAILY *NEW PRESCRIPTION REQUEST* Taking OneTouch Ultra - Strip USE TO TEST BLOOD SUGAR 3 TIMES DAILY *NEW PRESCRIPTION REQUEST* Taking Symbicort 80-4.5 MCG/ACT Aerosol INHALE TWO (2) PUFFS BY MOUTH TWICE DAILY *NEW PRESCRIPTION REQUEST* Taking Nystatin 942754 UNIT/GM Powder APPLY TO AFFECTED AREA(S) THREE TIMES A DAY *NEW PRESCRIPTION REQUEST* Taking metFORMIN HCl ER 750 MG Tablet Extended Release 24 Hour TAKE 1 TABLET BY MOUTH EVERY DAY WITH EVENING MEAL *NEW PRESCRIPTION REQUEST* Taking Losartan Potassium 50 MG Tablet TAKE 1 TABLET BY MOUTH EVERY DAY *NEW PRESCRIPTION REQUEST* Taking Melatonin 3 MG Tablet TAKE 3 TABLETS BY MOUTH EVERY NIGHT AT BEDTIME NEEDED FOR SLEEP *NEW PRESCRIPTION REQUEST* Taking Fluticasone Propionate 50 MCG/ACT Suspension instill 1 spray into each nostril twice a day if needed Nasally twice a day Taking EPINEPHrine 0.3 MG/0.3ML Solution Auto-injector INJECT DIRECTED NEEDED FOR ALLERGIC REACTION *NEW PRESCRIPTION REQUEST* Taking Atorvastatin Calcium 80 MG Tablet TAKE 1 TABLET BY MOUTH EVERY DAY *NEW PRESCRIPTION REQUEST* Taking Aspercreme Lidocaine 4 % Cream APPLY TO AFFECTED AREA(S) TOPICALLY NEEDED *NEW PRESCRIPTION REQUEST* Taking Alcohol Prep 70 % Pad USE TO STERILIZE SKIN FOR TESTING BLOOD SUGAR THREE TIMES A DAY *NEW PRESCRIPTION REQUEST* Taking Levalbuterol HCl 0.63 MG/3ML Nebulization Solution 3 mL as needed Inhalation every 6 hours Taking True Metrix Air Glucose Meter - Device as directed Not-Taking/PRNDULoxetine HCl 40 MG Capsule Delayed Release Particles take 1 capsule by mouth twice a day Orally Once a day Not-Taking/PRN DULoxetine HCl 40 MG Capsule Delayed Release Particles take 1 capsule by mouth twice a day Orally Once a day Billing Information: * Procedure Codes: * Electronic signature of Reginaldo Hanley DO on 10/02/2025 at 11:41 AM ESTSign off status: Pending * Appointment Provider: Amee Hanley DO Date: 0 06/23/2025 Generated for Printing/Faxing/eTransmitting on:?10/02/2025 11:41 AM EST
--- OUTSIDE RECORDS SUMMARY | 2025-06-24 08:15 | XMS_ITS ---
Author Organization [facility] Servic es Address [address] [place] [address] Care Team Providers Care Printing Plate Clerk Name Role Phone Reginaldo Hanley Primary Care Provider REASON FOR VISIT rollator issues,adl Medications Medication SIG (Take, Route, Frequency, Duration) Notes Start Date End Date Status Alcohol Prep 70 % Pad USE TO STERILIZE S KIN FOR TESTING BLOOD SUGAR THREE TIMES A DAY *NEW PRESCRIPTION REQUEST*; Duration: 3 ActiveLevalbuterol HCl 0.63 MG/3ML Nebulization Solution3 mL as needed Inhalation every 6 hours; Duration: 30 days5ActiveAtorvastatin Calcium 80 MG TabletTAKE 1 TABLET BY MOUTH EVERY DAY *NEW PRESCRIPTION REQUEST*; Duration: 90ActiveAspercreme Lidocaine 4 % CreamAPPLY TO AFFECTED AREA(S) TOPICALLY NEEDED *NEW PRESCRIPTION REQUEST*; Duration: 76ActiveTrue Metrix Air Glucose Meter - Deviceas directed; Duration: 365 days5Active Fluticasone Propionate 50 MCG/ACT Suspensioninstill 1 spray into each nostril twice a day if needed Nasally twice a day; Duration: 90 daysActiveEPINEPHrine 0.3 MG/0.3ML Solution Auto-injectorINJECT DIRECTED NEEDED FOR ALLERGIC REACTION *NEW PRESCRIPTION REQUEST*; Duration: 6ActiveLosartan Potassium 50 MG TabletTAKE 1 TABLET BY MOUTH EVERY DAY *NEW PRESCRIPTION REQUEST*; Duration: 90 ActiveMelatonin 3 MG TabletTAKE 3 TABLETS BY MOUTH EVERY NIGHT AT BEDTIME NEEDED FOR SLEEP *NEW PRESCRIPTION REQUEST*; Duration: 90ActivemetFORMIN HCl ER 750 MG Tablet Extended Release 24 HourTAKE 1 TABLET BY MOUTH EVERY DAY WITH EVENING MEAL *NEW PRESCRIPTION REQUEST*; Duration: 90ActivePropranolol HCl ER 160 MG Capsule Extended Release 24 HourTAKE ONE (1) CAPSULE BY MOUTH ONCE DAILY *NEW PRESCRIPTION REQUEST*; Duration: 90ActiveOneTouch Ultra - StripUSE TO TEST BLOOD SUGAR 3 TIMES DAILY *NEW PRESCRIPTION REQUEST*; Duration: 100Active Promethazine HCl 12.5 MG Tablet1 tablet as needed Orally every 6 hrs; Duration: 30 day(s)ActiveSymbicort 80-4.5 MCG/ACT AerosolINHALE TWO (2) PUFFS BY MOUTH TWICE DAILY *NEW PRESCRIPTION REQUEST*; Duration: 90ActiveNystatin 075615 UNIT/GM PowderAPPLY TO AFFECTED AREA(S) THREE TIMES A DAY *NEW PRESCRIPTION REQUEST*; Duration: 30ActiveOneTouch Delica Plus Myafhn54Z - MiscellaneousUSE TO TEST BLOOD SUGAR 3 TIMES DAILY *NEW PRESCRIPTION REQUEST*; Duration: 90Active Tirzepatide 2.5 MG/0.5ML Solution Auto-injectorTake 2.5 mg Subcutaneous Once a week; Duration: 28 days/5ActiveEPINEPHrine 0.3 MG/0.3ML Solution Prefilled SyringeInject one syringe in the outer thigh as needed for allergic reaction; Max daily dose 2 (TWO) syringes InjectionActiveamLODIPine Besylate 10 MG Tablettake 1 tablet by mouth once daily Orally Once a day; Duration: 30 daysActiveWalker - Miscellaneousas directed; Duration: 365 days 5ActiveRA Alcohol Swabs 70 % Paduse as directed daily TO CHECK SUGARS 30; Duration: 30 daysActiveOmeprazole 40 MG Capsule Delayed Releasetake 1 capsule by mouth once daily; Duration: 30ActivehydrOXYzine Pamoate 50 MG Capsule 1 capsule at bedtime as needed Orally every eight hours; Duration: 90 days As needed for anxiety attacks 4ActiveGabapentin 600 MG Tablet1 tablet Orally Once a day; Duration: 30 day(s)5ActiveDULoxetine HCl 40 MG Capsule Delayed Release Particlestake 1 capsule by mouth twice a day Orally Once a day; Duration: 30 days Not-Taking/PRNtest strips Freestyle Lite DIAGNOSIS: DIABETES WITH UNSPECIFIED COMPLICATION 250.90as directed externally twice a day; Duration: 90 days tiveGlucometer - -place 1 drop of blood externally TID 12/07/2021ctiveLancets - Miscellaneousas directed fingertip three times a day; Duration: 30 daysE11.9Active Social History Sex Assigned At : Social History Observation Description Sex Assigned At Female Encounters Encounter Location Date Provider Diagnosis [facility] [address] [place] [address] 06/24/2025 Reginaldo Hanley Plan Of Treatment Next Appt Details Provider Name:Reginaldo Potts Paula hinton, 10/10/2025 01:30:00 PM, [address], [place], [address], Progress Notes * ALIRIO CUNHA DDOB: [birth year] (65 yo F)Acc No.[id number]:06/24/2025 Virtual Primary Care Visit Patient: Nessa ALIRIO FOWLER Account Number:[id number] Provider:?DIPIKA CarterOB:1960???Age: 64 Y???Sex:FemaleDate:06/24/2025Phone:[phone]:[address] [place], [place]-[address] Subjective: * Chief Complaints: * R ollator issues,adl * Medications: T akingGlucometer - - place 1 drop of blood externally TID Lancets - Miscellaneous as directed fingertip three times a day , Notes to Pharmacist: E11.9test strips Mary Pack DIAGNOSIS: DIABETES WITH UNSPECIFIED [...] 2 (TWO) syringes Injection OneTouch Delica Plus Scklgz14B - Miscellaneous USE TO TEST BLOOD SUGAR [...] MOUTH TWICE DAILY *NEW PRESCRIPTION REQUEST* Nystatin 310250 UNIT/GM Powder APPLY TO AFFECTED AREA(S) THREE [...] (TWO) syringes Injection Taking OneTouch Delica Plus Vjhghv16S - Miscellaneous USE TO TEST BLOOD SUGAR [...] TWICE DAILY *NEW PRESCRIPTION REQUEST* Taking Nystatin 110547 UNIT/GM Powder APPLY TO AFFECTED AREA(S) THREE [...] Appointment Provider: Amee Hanley DO Date: 0 06/24/2025 Generated for Printing/Faxing/eTransmitting on:?10/02/2025 11:40 AM EST
--- OUTSIDE RECORDS SUMMARY | 2025-06-28 10:15 | XMS_ITS ---
Author Organization [facility] Serv[facility] Address [address] [place] [address] Care Team Providers Care Theater Education Teacher Name Role Phone Talon Reginaldo Primary Care Provider REASON FOR VISIT rollator issue Social History Sex Assigned At : Social History Observation Description Sex Assigned At Female Encounters Encounter Location Date Provider Diagnosis [facility] [address] [place] [address] 06/28/2025 Reginaldo Hanley Plan Of Treatment Next Appt Details Provider Name:Reginaldo hinton, 10/10/2025 01:30:00 PM, [address], [place], [address], Progress Notes * ALIRIO CUNHA DDOB: [birth year] (65 yo F)Acc No.[id number]:06/28/2025 Progress Notes Patient: Nessa ALIRIO FOWLER Account Number:[id number] Provider:?Reginaldo Hanley DODOB:1960???Age: 64 Y???Sex:FemaleDate:06/28/2025Phone:[phone]:[address] [facility] [place], [place] Subjective: * Chief Complaints: * R ollator issue * Electronic signature of Reginaldo Hanley DO on 10/02/2025 at 11:40 AM ESTSign off status: Pending * Appointment Provider: Amee Hanley DO Date: 0 06/28/2025 Generated for Printing/Faxing/eTransmitting on:?10/02/2025 11:40 AM EST
--- OUTSIDE RECORDS SUMMARY | 2025-10-02 11:40 | XMS_ITS | Clinical Summary ---
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 Role Phone Argelia Bocanegra MD Primary Care Provider [phone] Allergies Active AllergyReactionsCriticalityNoted DateCommentsBee VenomAnaphylaxisHigh 5Coconut Fatty ObolMxogeftebswAtrm63/05/2025CorticosteroidsAnaphylaxis High04/28/2025 PATIENT REPORTS ALL STEROIDS Fish BogewxqMozorzligdlOvci53/05/9958InwojznTleggXxqe44/21/2018IbuprofenHives High08/14/20185683KplrviypipiXfrzkQssg16/21/2018Sulfa OyzxcbjuahaIqhspDclm23/21/2018 Tramadol RgtGjpriYtqt23/21/2018 Medications MedicationSigDispense QuantityRefillsLast FilledStart DateEnd DateStatus propranolol (INDERAL LA) 120 MG extended release capsule Take 160 mg by mouth dailyActive lidocaine (LMX) 4 % cream Indications:Lumbar radiculopathyApply a half dollar sized amount to intact skin topically up to twice daily as needed for pain 1 Tube ctive Additional Information Patient not taking.Reported on 04/28/2025 naloxone 4 MG/0.1ML LIQD nasal spray 1 spray by Nasal route as needed for Opioid Reversal 1 each 03/19/2021ctive Additional Information Patient not taking.Reported on 04/28/2025 diphenoxylate-atropine (LOMOTIL) 2.5-0.025 MG per tablet Take 1 tablet by mouth 4 times daily as needed for Diarrhea. Max Daily Amount: 4 tabletsActive guaiFENesin (MUCINEX) 600 MG extended release tablet Take 1 tablet by mouth 2 times dailyActive promethazine (PHENERGAN) 12.5 MG tablet Take 1 tablet by mouth every 6 hours as needed for NauseaActive acetaminophen (TYLENOL) 325 MG tablet Take 2 tablets by mouth every 6 hours as needed for PainActive amLODIPine (NORVASC) 10 MG tablet Take 1 tablet by mouth dailyActive gabapentin (NEURONTIN) 600 MG tablet Take 1 tablet by mouth daily.Active atorvastatin (LIPITOR) 80 MG tablet Take 1 tablet by mouth dailyActive losartan (COZAAR) 50 MG tablet Take 1 tablet by mouth dailyActive metFORMIN (GLUCOPHAGE) 500 MG tablet Take 1 tablet by mouth 2 times daily (with meals)Active omeprazole (PRILOSEC) 20 MG delayed release capsule Take 2 capsules by mouth dailyActive budesonide-formoterol (SYMBICORT) 80-4.5 MCG/ACT AERO Inhale 2 puffs into the lungs 2 times dailyActive ipratropium (ATROVENT HFA) 17 MCG/ACT inhaler Inhale 2 puffs into the lungs 4 times daily as needed for WheezingActive tiZANidine (ZANAFLEX) 4 MG tablet Take 1 tablet by mouth every 6 hours as needed (muscle spasms)Active hydrOXYzine pamoate (VISTARIL) 50 MG capsule Take 1 capsule by mouth 3 times daily as needed for Anxiety (Sleep)Active melatonin 3 MG TABS tablet Take 10 mg by mouth nightly as needed (sleep aid)Active levalbuterol (XOPENEX) 0.63 MG/3ML nebulization Indications:COPD exacerbation (HCC)Take 3 mLs by nebulization 4 times daily 120 each 5Active Active Problems ProblemNoted DateDiagnosed DateCOPD rgoqzifgygmf88/05/2025Diabetes mellitus without zxkiadxlzngo51/05/2025Opioid uacyzeiyrx70/05/2025Post-laminectomy xagfofsx30/05/2025Primary qbogmsivvbui51/07/2022Tobacco use09/30/2022 Family History Medical HistoryRelationNameCommentsArthritisFatherCancerFatherDiabetesFather Heart DiseaseFatherHigh Blood PressureFatherArthritisMotherCancerMotherHeart DiseaseMotherRelationNameStatusCommentsFatherMother Social History Tobacco UseTypesPacks/DayYears UsedDateSmoking Tobacco: Every DayCigarettes0.330 Smokeless Tobacco: Never Tobacco Cessation:Ready to Q uit: Yes; Counseling Given: Yes Alcohol UseStandard Drinks/WeekCommentsYes0 (1 standard drink = 0.6 oz pure alcohol)[facility] UtilitiesAnswerDate RecordedIn the past 12 months has the [employer], [employer], oil, or water [employer] threatened to shut off services in your home?No 04/28/2025UDIT-CAnswerDate RecordedQ1: How often do you have a drink containing alcohol?Never04/28/2025Q2: How many drinks containing alcohol do you have on a typical day when you are drinking?Patient does not drink04/28/2025Q3: How often do you have six or more drinks on one occasion?Never04/28/2025Hunger Vital Sign AnswerDate RecordedWithin the past 12 months, you worried that your food would run out before you got the money to buymore.Never true04/28/2025Within the past 12 months, the food you bought just didn't last and you didn't have money to get more.Never true04/28/2025PRAPARE - TransportationAnswerDate RecordedIn the past 12 months, has lack of transportation kept you from medical appointments or from getting medications?No04/28/2025In the past 12 months, has lack of transportation kept you from meetings, work, or from getting things needed for daily living?No04/28/2025Housing Stability Vital SignAnswerDate RecordedIn the last 12 months, was there a time when you were not able to pay the mortgage or rent on time?No04/28/2025In the past 12 months, how many times have you moved where you were living?t any time in the past 12 months, were you homeless or living in a care home (including now)?No04/28/2025Food Insecurity AnswerDate RecordedWithin the past 12 months, you worried that your food would run out before you got the money to buymore.Within the past 12 months, the food you bought just didn't last and you didn't have money to get more.Interpersonal Safety Domain Source: IP Abuse ScreeningAnswerDate RecordedPhysical iclftZexevo99/05/2025Verbal dvcmbIrzhzy05/05/2025Emotional awmqqIajahp66/05/2025Financial bjppjGfpmiy92/05/2025Sexual bxfayOjljye33/05/2025 CommentsUnknownSex and Gender InformationValueDate RecordedSex Assigned at BirthNot on fileLegal DiaWidtwa16/13/2013 1:45 AM ESTGender IdentityNot on fileSexual OrientationNot on file Last Filed Vital Signs Vital SignReadingTime TakenCommentsBlood Fqznfeqy874/8405/02/2025 12:11 PM EDT Uvyrp843605/02/2025 3:42 PM DPDHsgqvumrtdg04.8 ??C (98.3 ??F)05/02/2025 7:18 AM EDTRespiratory Alyc378005/02/2025 3:42 PM EDTOxygen Fzghegxirz48%05/02/2025 3:42 PM EDTInhaled Oxygen Concentration--Ctzlow701.2 kg (223 lb)05/02/2025 11:58 AM JWYAaqpqm543.9 cm (4' 11.02 )05/02/2025 11:58 AM EDTBody Mass Index45.02 05/02/2025 11:58 AM EDT Plan of Treatment Health MaintenanceDue DateLast DoneCommentsDiabetic foot exam1972Lipids 1972Depression Jdmvjq9808/07/1974HIV rjqhhn2308/07/1977Diabetic Alb to Cr ratio (uACR) test1980Diabetic retinal exam1980Hepatitis C screen 1980Pap smear1983Cervical cancer jkwlff2508/07/1992HPV (without or with Pap)1992Breast cancer yexxut8008/07/20022663Zhgkwvgsmrj67/14/2007Colorectal Cancer Fgryed4708/07/2007FIT/FOBT: Average risk2007Fecal-DNA (Cologuard): Average risk2007Sigmoidoscopy/CT rpuwvhyrhnhw67/14/2007Pneumococcal 50+ years Vaccine (2 of 2 - PCV)Shingles vaccine (2 of 2) Respiratory Syncytial Virus (RSV) or age 60 yrs+ (1 - Risk 60-74 years 1-dose series)2022Flu vaccine (#1), 10/06/2022, 08/30/2021, Additional history existsCOVID-19 Vaccine (3 - 2024- season)/10/2021, 1A1C test (Diabetic or Prediabetic) GFR test (Diabetes, CKD 3-4, OR last GFR 15-59)05/02/2026 05/02/2025, 05/01/2025, 04/30/2025, Additional history existsDTaP/Tdap/Td vaccine (2 - Td or Tdap)Pneumococcal 0-49 years Vaccine Htdrzmfgzrle00/17/2018Diabetes vxayzjRvrqmyzmaere89/14/2025Hepatitis A vaccine Aged OutNo longer eligible based on patient's age to complete this topic Hepatitis B vaccineAged OutNo longer eligible based on patient's age to complete this topicHib vaccineAged OutNo longer eligible based on patient's age to complete this topicMeningococcal (ACWY) vaccineAged OutNo longer eligible based on patient's age to complete this topicMeningococcal B vaccineAged OutNo longer eligible based on patient's age to complete this topicPolio vaccineAged OutNo longer eligible based on patient's age to complete this topic Procedures Procedure NamePriorityDate/TimeAssociated DiagnosisCommentsBASIC METABOLIC PANEL W/ REFLEX TO MG FOR LOW YUijrcgn23/09/2025 5:30 AM EDT HEMOGLOBIN U6LPqmrgnm59/14/2025 7:50 AM EDT from Last 3 Months or Most Recently Relevant to Health Maintenance Results * (ABNORMAL) Basic Metabolic Panel w/ Reflex to MG (05/02/2025 5:30 AM EDT) ComponentValueRef RangeTest MethodAnalysis TimePerformed AtPathologist VacclckytWhaocw250911 - 145 mmol/L05/02/2025 5:30 AM [facility] LABPotassium4.23.7 - 5.3 mmol/L05/02/2025 5:30 AM [facility] PVORhnhmfgr23915 - 107 mmol/L05/02/2025 5:30 AM [facility] FNFSO62563 - 31 mmol/L05/02/2025 5:30 AM [facility] LABAnion Rpr556 - 16 mmol/L05/02/2025 5:30 AM [facility] PMLLpdarlh820(H)74 - 99 mg/dL05/02/2025 5:30 AM EDT [facility] GQCWYI616 - 23 mg/dL05/02/2025 5:30 AM [facility] LABCreatinine0.90.50 - 0.90 mg/dL05/02/2025 5:30 AM EDT [facility] LABEst, Glom Filt Rate73>60 mL/min/1.73m2 05/02/2025 5:30 AM [facility] LABComment: ? These results are not intended for use in patients <18 years of age. ? eGFR results are calculated without a race factor using the 2020 CKD-EPI equation. Careful clinical correlation is recommended, particularly when comparing to results calculated using previous equations. The CKD-EPI equation is less accurate in patients with extremes of muscle mass, extra-renal metabolism of creatine, excessive creatine ingestion, or following therapy that affects renal tubular secretion. BUN/Creatinine Yfqno683 - 5:30 AM [facility] SUQHvanfqp37.28.6 - 10.4 mg/dL05/02/2025 5:30 AM [facility] LABSpecimen (Source)Anatomical Location / LateralityCollection Method / Volume Collection TimeReceived TimeBLOOD SPECIMEN / Fifjgwu2905/02/2025 5:30 AM EDT 05/02/2025 6:07 AM EDT Narrative Authorizing ProviderResult TypeResult StatusChristopher Emmanuel Delatorre MDCHEMISTRY ORDERABLESFinal ResultPerforming OrganizationAddressCity/State/ZIP CodePhone Number [facility] [address] [place], [place] [id number], [facility] [phone] * (ABNORMAL) Hemoglobin A1C (03/07/2025 7:50 AM EDT)ComponentValueRef RangeTest MethodAnalysis TimePerformed AtPathologist SignatureHemoglobin A1C6.4(H)4.0 - 6.0 %03/07/2025 7:50 AM EDTMERCY LABORATORIESEstimated Avg Davbjsv509yk/dL 03/07/2025 7:50 AM EDTMERCY LABORATORIESComment: The ADA and AACC recommend providing the estimated average glucose result to permit better patient understanding of their HBA1c result. Specimen (Source)Anatomical Location / LateralityCollection Method / Volume Collection TimeReceived Time03/07/2025 7:50 AM EDT03/07/2025 8:22 AM EDT Narrative Authorizing ProviderResult TypeResult StatusErnest Leonardo [employer] COXSWAIN - CNPCHEMISTRY ORDERABLESFinal ResultPerforming OrganizationAddressCity/State/ZIP CodePhone Number [facility] [address] [place], [place] [id number], [facility] [phone] [place] [id number], [facility] [phone] from Last 3 Months or Most Recently Relevant to Health Maintenance Insurance * Guarantor: Casie PatrickAccount TypeRelation to PatientDate of BirthPhone Billing AddressPersonal/XrqiywNkgr1960 [facility] [place] [address] Advance Directives TypeDate RecordedPatient RepresentativeExplanationACP-Advance Directive05/02/2025 2:11 PMSears... DNR Form 04/29/25ACP-Do Not Resuscitate04/29/2025 2:44 PMDNR-CCA * DNR-CCA (Latest Code Status on File) Date ActivatedDate InactivatedComments04/29/2025 12:10 PM05/02/2025 8:49 PM * Full Code Date ActivatedDate InactivatedComments04/28/2025 8:45 PM04/29/2025 12:10 PM NameRelationshipHealthcare Agent RelationshipCommunicationNate Nayeli Primary Decision Maker* Care Teams Team MemberRelationshipSpecialtyStart DateEnd Date Argelia Bocanegra MD PCP - General01/12/21
--- OUTSIDE RECORDS SUMMARY | 2025-10-02 11:40 | XMS_ITS | Clinical Summary ---
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 Name Role Phone Rochelle Jose MD Primary Care Provider [phone] Allergies Active AllergyReactionsCriticalityNoted LdjrDfkqznfnJcdxliwQkphy75/08/2018 Bfefbaxzbnitmq83/08/2018Coconut CnvYkjfo45/27/7346Nupbqdrfokskjjx63/08/2018 Wvbnfhoquozk59/08/7670QjpstpwhvawackRiqte16/26/2024 Other Reaction(s): Unknown, Unknown DoxycyclineNausea and Mqbuuyfc11/30/2008 Other Reaction(s): GI intolerance Osamvibocesm59/08/2449Ryugzijng05/08/2018Fish IwypbarFdyhklwsoksYfjq49/05/2025 Zhszclvca85/08/8117Sjslcwwwykl95/08/2018Iodinated Diagnostic AgentsAnaphylaxis, Hives,UzpjlgtbHktp14/30/2008 Other Reaction(s): Anaphylactic Shock Other Reaction(s): Swelling of Lip/Tongue/Throat Rhaldf9601/01/20187617Vexzshmnu80/08/2018Ivp Dye, Iodine Nwzqgtyzbb70/08/2018LatexRash Low12/19/20230556Nfbszposkk32/08/7898Jniodcdw70/08/6025Jeqkll49/08/2018Ondansetron Achajzgb97/23/1873Jcasgvukrtt13/08/1531Kayewjnw11/08/7432Nsqfeujj74/08/2018 Shellfish-Derived Jnicmgfi79/06/2022 Other Reaction(s): Anaphylactic Shock Sulfa Ksfoglyfnrm50/08/7684PaucmmtkryIzevn40/21/5505Iioakcpp05/08/2018 Medications MedicationSigDispense QuantityRefillsLast FilledStart DateEnd DateStatus atorvastatin 80 MG Tab tablet 12/15/2017Active EPIPEN 2-TERRA 0.3 MG/0.3ML Solution Auto-injector injection 12/30/2017Active fluticasone 50 MCG/ACT Suspension nasal spray 12/15/2017Active Propranolol HCl CR 160 MG Cap SR 24HR 12/08/2017Active amLODIPine 5 MG tablet Take 1 tablet by mouth daily.02/18/2023ctive metFORMIN 500 MG tablet Take 1 tablet by mouth 2 times daily with meals.Active budesonide-formoterol 80-4.5 mcg/puff Aerosol inhaler Inhale 2 puffs 2 times daily.11/06/2023ctive levalbuterol 0.63 MG/3ML Nebu Soln inhalation solution Indications:Chronic obstructive pulmonary disease, unspecified COPD typeInhale 3 mL every 6 hours as needed. 3 mL 5Active Mucus Relief 600 MG Tab SR 12 HR tablet SR Indications:Chronic coughTAKE 1 TABLET BY MOUTH TWICE DAILY 56 tablet 1105Active Atrovent HFA 17 MCG/ACT Aero Soln inhaler Indications:Chronic obstructive pulmonary disease, unspecified COPD typeINHALE 2 PUFFS BY MOUTH EVERY 4 HOURS NEEDED FOR WHEEZING 12.9 g 1105Active hydrOXYzine hcl 50 MG tablet Indications:KELLIE (generalized anxiety disorder)TAKE 1 TABLET BY MOUTH 3 TIMES DAILY NEEDED FOR ANXIETY 84 tablet 1105Active omeprazole [address] capsule Indications:Gastroesophageal reflux disease, unspecified whether esophagitis presentTAKE 1 CAPSULE BY MOUTH DAILY 28 capsule 1105Active gabapentin 600 MG tablet Indications:Neuropathy of right lower extremityTake 1 tablet by mouth 3 times daily. 84 tablet 5ActiveHospital, Clinic, or Other Facility Administered Medication Ordered DoseRouteFrequencyStart DateEnd DateStatus acetaminophen (TYLENOL) tablet 650 mg Indications:Trochanteric bursitis of right jqh982 mgPOEVERY 4 HOURS NEEDED 01/01/2018Active Active Problems ProblemNoted DateDiagnosed DateCocaine use uxdjlxuz33/07/2025lcohol use disorder, severe, ivilrkipqs21/10/2025hronic low back pain with right-sided /10/2025Iron deficiency znazcl0806/02/2025Elevated brain natriuretic peptide (BNP) level06/02/2025Gastroesophageal reflux xsglivz9506/02/2025GAD (generalized anxiety disorder)06/02/2025hronic cough06/02/2025Neuropathy of right lower goalmguty10/10/2025hronic obstructive pulmonary vyfjgzw5106/02/2025 Encounters DateTypeDepartmentCare QqcuEwhdwamozwq31/06/2025Refill [facility] [address] [facility] [place] [address] Nichole Anton, DO Neuropathy of right lower jmdkjohwt47/03/2025Refill [facility] [address] [facility] [place] [address] Nichole Anton, DO Neuropathy of right lower uvelhyceo68/18/2025 11:45 AM EDTTelemedicine [facility] [address] [facility] [place] [address] Nichole Anton, DO Alcohol use disorder, severe, dependence (Primary Dx); Cocaine use disorder; Neuropathy of right lower ujfbowigk91/22/2025[facility] [address] [facility] [place] [address] Nichole Anton, DO Neuropathy of right lower pkbtqalvu07/21/2025 3:00 PM EDTTelemedicine [facility] [address] [facility] [place] [address] Nichole Anton, DO Alcohol use disorder, severe, dependence (Primary Dx); Cocaine use disorder; Neuropathy of right lower wuibwaxob04/21/2025Refill [facility] [address] [facility] [place] [address] Nichole Anton, DO Chronic cough; Chronic obstructive pulmonary disease, unspecified COPD type; KELLIE (generalized anxiety disorder); Gastroesophageal reflux disease, unspecified whether esophagitis present 07/04/2025Refill [facility] [address] [facility] [place] [address] Nichole Anton, DO Cocaine use /10/2025Refill [facility] [address] [facility] [place] [address] Nichole Anton, Neuropathy of right lower extremityfrom Last 3 Months Family History Medical HistoryRelationNameCommentsDiabetesFatherHypertensionFatherLung Cancer FatherHeart Disease - OtherMotherThyroid CancerMotherMental IllnessSister RelationNameStatusCommentsFatherMotherSister Social History Tobacco UseTypesPacks/DayYears UsedDateSmoking Tobacco: FormerCigarettes Smokeless Tobacco: Never Tobacco Cessation:Counseling Given: Not Answered Alcohol UseStandard Drinks/WeekCommentsNot Currently0 (1 standard drink = 0.6 oz pure alcohol)CommentsUnknownSex and Gender InformationValueDate Recorded Sex Assigned at BirthNot on fileLegal OquDakmfz22/06/2017 7:25 PM ESTGender ItgctjjzXmtzhq13/23/2018 2:12 PM ESTSexual OrientationNot on file Last Filed Vital Signs Vital SignReadingTime TakenCommentsBlood Pressure--Pulse--Tskxcmlbevl66.6 ??C (96.1 ??F)04/30/2023 3:22 PM EDTRespiratory Rate--Oxygen Saturation--Inhaled Oxygen Concentration--Ivrmwy512.4 kg (232 lb 6.4 oz)06/30/2025 9:36 AM EDTHeight 165.1 cm (5' 5 )06/30/2025 9:36 AM EDTBody Mass Index38.6708 9:36 AM EDT Plan of Treatment Health MaintenanceDue DateLast DoneCommentsHEPATITIS C VIRUS WXCBURQHC1962 HIV SCREENING BFKSFPMWPB51/14/1977CERVICAL CANCER SCREENING CABQNBTKIG01/14/1983 LIPID GRTHGLYYG31/14/2002MAMMOGRAM SCREENING XMSYZZTHWV16/14/2002COLORECTAL CANCER SCREENING JTDTJFXCYQ87/14/2007RSV VACCINE (1 - Risk 50-74 years 1-dose series)2012PNEUMOCOCCAL VACCINE SERIES (2 of 2 - PCV) ZOSTER (SHINGLES) VACCINE (2 of 2)COVID-19 VACCINE (1 - 2024- season)2025INFLUENZA VACCINE (#1)/2022, 10/06/2022, 08/30/2021, Additional history zwekqiMZPYCSJ18/04/05600501/25/2019PNEUMOCOCCAL VACCINE RCEJNSDsltzjcgornl51/17/2018TDAP (ADULT)Waeomjtwr19/04/2019HEP B VACCINE Aged OutNo longer eligible based on patient's age to complete this topic Insurance Care Teams Team MemberRelationshipSpecialtyStart DateEnd Date Rochelle Jose MD PCP - GeneralFamily Medicine03/20/23
--- OUTSIDE RECORDS SUMMARY | 2025-10-02 11:41 | XMS_ITS | Patient Health Record ---
Author Organization [facility] Servic es Address [address] [place] [address] Care Team Providers Care Squirrel Man Name Role Phone PaulajamaalReginaldo Primary Care Provider Fidelia Jones Unavailable [phone] Herminia Gonzalez Unavailable [phone] Allergies Allergen (clinical drug ingredient) Drug/Non Drug Allergy documented on EMR Reaction Allergy Type Onset Date Status IV dye (uncoded)anaphylaxisAllergyActiverifampton (uncoded)hivesAllergyActive Shellfish (FN)shellfish (uncoded)hivesAllergyActivesome steroids (uncoded) anaphylaxisAllergyActiveisoniazidIsoniazidanaphylaxisDrug AllergyActiveDarvocet N-100 # 30anaphylaxisDrug AllergyActiveASArashDrug AllergyActiveSubstance with sulfonamide structure and antibacterial mechanism of action (substance)Sulfa (uncoded)anaphylaxisAllergyActivePCN (uncoded)anaphylaxisAllergyActivetramadol UltramanaphylaxisDrug AllergyActivelisinoprilLisinoprilanaphylaxisDrug Allergy ActiverizatriptanRizatriptanhivesDrug AllergyActive Results Component Value Reference Range Notes Hemoglobin A1c Reviewed date:01/18/2025 09:36:20 AM Interpretation: Performing Lab: Notes/Report: Hemoglobin A1c 6.3% 5 - 7.9 % Urine Drug Screen Reviewed date:12/20/2024 10:46:00 AM Interpretation: Performing Lab: Notes/Report: pHNEGSGNEGCreateNEGTHCNEGCOCNEGAMPNEGOPINEGMAMPNEGPCPNEGBARNEGBZONEGMTONEGMDMA NEGOXYNEGBUPNEGUrinalysis automated Reviewed date:12/20/2024 10:44:16 AM Interpretation: Performing Lab: Notes/Report: Urine-ColorYELLOWAppearanceCLEARSpecific Gravity1.010pH6.0GlucoseNEGProteinNEG Occult BloodNEGBilirubinNEGUrobilinogen,Semi-Qn3.5Nitrite, UrineNEGKetonesNEGWBC Esterase2+Hemoglobin A1c Reviewed date:09/09/2025 01:56:56 PM Interpretation:6.5% Performing Lab: Notes/Report: 6.5%Hemoglobin A1c6.5%5 - 7.9 %Hemoglobin A1c Reviewed date:06/07/2025 02:41:58 PM Interpretation:6.7% Performing Lab: Notes/Report: 6.7%Hemoglobin A1c6.7%5 - 7.9 % Reason For Referral Reason NEW REFERRAL PLACED Pt would like a different pain management. She is displeased with her treatment at her current one. Diagnosis 1 Lumbago with sciatic a, right side (M54.41) Referral Organization [facility] Referring Provider First Name Reginaldo Referring Provider Last Name Talon Referring Provider [facility] ctice Referred Provider [facility] PAIN, MANAG EMENT Referred Provider Specialty Pain Medicin e General Notes Nila Hopkins 2024 08:06:38 AM >PT WAS D/C FROM [facility] Referral Priority Routine Reason PT N/S APPT DO NOT SEND TO DR GUTIERRES!!!! She would like to see pain management in [place]. Diagnosis 1 Neuropathic pain (M7 9.2) Referral Organization [facility] Referring Provider First Name Reginaldo Referring Provider Last Name Talon Referring Provider [facility] ctice Referred Provider [facility] Referred Provider Specialty Pain Medicin e Referral Priority Routine Reason DMITRIY DECLINED - LVM WITH PT 06/10; [facility] [place], [facility] AND DMITRIY HAVE ALL DECLINED DUE TO N/S Pt would like one in or near [place] for her low back pain and chronic pain. Diagnosis 1 Other chronic pain ( G89.29) Referral Organization [facility] Referring Provider First Name Reginaldo Referring Provider Last Name Talon Referring Provider [facility] ctice Referred Provider Specialty Pain Medicin e General Notes Nila Hopkins 2024 08:30:38 AM >[facility] [phone] Referral Priority Routine Reason Help with diet for T 2DM and is interested in the [employer] program. Diagnosis 1 Type 2 diabetes rani itus with unspecified complications (E11.8) Referral Organization [facility] ices Referring Provider First Name Reginaldo Referring Provider Last Name Talon Referring Provider Speciality [facility] Referred Provider Specialty Child Specialist Referral Priority Routine Medications Medication SIG (Take, Route, Frequency, Duration) Notes Start Date End Date Status Lancets - Miscellaneous as directed fing ertip three times a day; Duration: 30 days E11.9 Activetest strips Freestyle Lite DIAGNOSIS: DIABETES WITH UNSPECIFIED COMPLICATION 250.90as directed externally twice a day; Duration: 90 days 5ActiveGabapentin 600 MG TabletTAKE 1 TABLET BY MOUTH ONCE DAILY; Duration: 30ActiveOmeprazole 40 MG Capsule Delayed Releasetake 1 capsule by mouth once daily; Duration: 30ActivePen [place] 31G X 8 MM Miscellaneousas directed; Duration: 90 days5ActiveLomotil 2.5-0.025 MG Tablet1 tablet as needed Orally Four times a day; Duration: 30 days5ActiveamLODIPine Besylate 10 MG Tablettake 1 tablet by mouth once daily Orally Once a day; Duration: 30 daysActiveRollator Ultra-Light - Miscellaneousas directed; Duration: 365 days5ActiveRA Alcohol Swabs 70 % Paduse as directed daily TO CHECK SUGARS 30; Duration: 30 daysActiveOneTouch Delica Plus Bpghsb67V - MiscellaneousUSE TO TEST BLOOD SUGAR 3 TIMES DAILY *NEW PRESCRIPTION REQUEST*; Duration: 90ActiveDULoxetine HCl 40 MG Capsule Delayed Release Particlestake 1 capsule by mouth twice a day Orally Once a day; Duration: 30 daysNot-Taking/PRN Promethazine HCl 12.5 MG Tablet1 tablet as needed Orally every 6 hrs; Duration: 30 day(s)ActiveWalker - Miscellaneousas directed; Duration: 365 days06/07/2025 ActiveEPINEPHrine 0.3 MG/0.3ML Solution Prefilled SyringeInject one syringe in the outer thigh as needed for allergic reaction; Max daily dose 2 (TWO) syringes InjectionActiveAlbuterol Sulfate 0.63 MG/3ML Nebulization Solutionas directed Inhalation twice a day5ActivehydrOXYzine Pamoate 50 MG Capsule 1 capsule at bedtime as needed Orally every eight hours; Duration: 90 days As needed for anxiety attacks 4ActiveTrue Metrix Air Glucose Meter - Deviceas directed; Duration: 365 days5ActiveAlcohol Prep 70 % PadUSE TO STERILIZE SKIN FOR TESTING BLOOD SUGAR THREE TIMES A DAY *NEW PRESCRIPTION REQUEST*; Duration: 3ActivePropranolol HCl ER 160 MG Capsule Extended Release 24 HourTAKE ONE (1) CAPSULE BY MOUTH ONCE DAILY *NEW PRESCRIPTION REQUEST*; Duration: 90ActiveLosartan Potassium 50 MG TabletTAKE 1 TABLET BY MOUTH EVERY DAY *NEW PRESCRIPTION REQUEST*; Duration: 90 ActiveMelatonin 3 MG TabletTAKE 3 TABLETS BY MOUTH EVERY NIGHT AT BEDTIME NEEDED FOR SLEEP *NEW PRESCRIPTION REQUEST*; Duration: 90Not-Taking/PRNNystatin 633920 UNIT/GM PowderAPPLY TO AFFECTED AREA(S) THREE TIMES A DAY *NEW PRESCRIPTION REQUEST*; Duration: 30ActiveLevalbuterol HCl 0.63 MG/3ML Nebulization Solution3 mL as needed Inhalation every 6 hours; Duration: 30 days Pt has greatest benefit from this beta agonist. Albuterol is too strong for her based on the side effects.5ActivemetFORMIN HCl ER 750 MG Tablet Extended Release 24 HourTAKE 1 TABLET BY MOUTH EVERY DAY WITH EVENING MEAL *NEW PRESCRIPTION REQUEST*; Duration: 90ActiveAtorvastatin Calcium 80 MG TabletTAKE 1 TABLET BY MOUTH EVERY DAY *NEW PRESCRIPTION REQUEST*; Duration: 90Active Glucometer - -place 1 drop of blood externally TID2ActiveAspercreme Lidocaine 4 % CreamAPPLY TO AFFECTED AREA(S) TOPICALLY NEEDED *NEW PRESCRIPTION REQUEST*; Duration: 76ActiveFluticasone Propionate 50 MCG/ACT Suspensioninstill 1 spray into each nostril twice a day if needed Nasally twice a day; Duration: 90 daysActiveVictoza 18 MG/3ML Solution Pen-injectorINJECT 1.2 MG SUBCUTANEOUSLY DAILY Subcutaneous once a week; Duration: 60 daysActive EPINEPHrine 0.3 MG/0.3ML Solution Auto-injectorINJECT DIRECTED NEEDED FOR ALLERGIC REACTION *NEW PRESCRIPTION REQUEST*; Duration: 6ActiveOneTouch Ultra - StripUSE TO TEST BLOOD SUGAR 3 TIMES DAILY *NEW PRESCRIPTION REQUEST*; Duration: 100ActiveSymbicort 80-4.5 MCG/ACT AerosolINHALE TWO (2) PUFFS BY MOUTH TWICE DAILY *NEW PRESCRIPTION REQUEST*; Duration: 90Active Immunizations Vaccine Route Administration Date Status Comme nts Influenza 3+ PRIVATE IM Intramuscular 08/30/2021 Administe red xxxDO NOT USExxx Influenza Adult (FLUCELVAX - SINGLE USE)Hbbtqpy2007/10/2018 Administered PNEUMOVAX 23 given at [facility]. AFLURIA QUAD given at [facility]. xxxDO NOT USExxx Influenza Adult (FLUCELVAX - SINGLE USE)IM Intramuscular 10/23/2017AdministeredEncouraged patient to wait x 20 min. after vaccine administration to observe pt. for s/sx of adverse reaction;declined to do so. xxxxDO NOT USE-Pneumovax 10Syelzre78/17/2018AdministeredPNEUMOVAX 23 given at [facility].MODERNAIM Rctixbrxhtfpc36/14/2022dministered Social History Tobacco Use: Social History Observation Description Date Details (start date - stop date) Current Smoker NA - NA Sex Assigned At : Social History Observation Description Sex Assigned At Female Social History Social DeterminantsSocial InfoQuestionAnswerNotesPRAPAREDate Completed/Updated: 12/20/2024What is your current housing situation?I have housingAre you worried about losing your housing?NoWhat is the highest level of school that you have finished?High school diploma or GEDWhat is your current work situation?Otherwise unemployed but not seeking work (ex. student, retired, disabled, unpaid primary care associate)In the past year, have you or any family members you live with been unable to get any of the following when it was really needed? Check all that applyI do not have problems meeting my needsHas lack of transportation kept you from medical appointments, meetings, work or from getting things needed for daily living?Yes, it has kept me from medical appointments or from getting my medicationsHow often do you see or talk to people that you care about and feel close to? (For example: talkingto friends on the phone, visiting friends or family, going to yazidi or club meetings)Less than once a weekHow stressed are you? Stress is when someone feels tense, nervous, anxious, or cant sleep at night because their mind is troubledNot at allIn the past year have you spent more than 2 nights in a row in a retirement, fpc, correction center, orjuvenile correctional facility?NoAre you a refugee?NoWhat country are you from?[place]Do you feel physically and emotionally safe where you currently live?YesIn the past year, have you been afraid of your partner or ex-partner?NoPRAPARE Score:6GeneralSocial InfoQuestionAnswerNotesTransition of Care:ER/UC/hospital since last office visit?NoSpecialist seen since last office visit?NoSubstance abuse/mental health issues of patient/familyPatient -DeniesAbility to understand healthcare/treatmentPatient:FairSocial/Support Concerns:Patient:No Family/Caregiver:NoBehaviors affecting healthPoor/Risky Behaviors:Denies- Communication Barrier:Language Barrier?:NoFood Insecurity ScreeningSocial Info QuestionAnswerNotesDrugsDrug useDenies drug usepositive drug screen for cocaine 2016.Drug/Alcohol:Social InfoQuestionAnswerNotesAUDIT-C (Standard)Did you have a drink containing alcohol in the past year?Yes? How often did you have a drink containing alcohol in the past year?Monthly or less (1 point)? How many drinks did you have on a typical day when you were drinking in the past year?1 or 2 drinks (0 point)? How often did you have six or more drinks on one occasion in the past year?Never (0 point)Ujkatm7RqatmqtgrazjitChtwrysuNoqqnsj Use:Social InfoQuestionAnswerNotesTobacco Control (Standard)Tobacco use:Current smoker? How often do you smoke cigarettes?Every day? How many cigarettes a day do you smoke? 6-10? How soon after you wake up do you smoke your first cigarette?Within 5 minutesSection Notes: smokes 1/3 ppd x 10 years, [...] Disorder due to type 2 diabetes mellitus (842485211) Type 2 diabetes mellitus with unspecified complications (E11.8) ActiveconfirmedProblemMorbid obesity (disorder) (721292563)Morbid (severe) obesity due to excess calories (E66.01)ActiveconfirmedProblemHypercalcemia (43801959)Hypercalcemia (E83.52)ActiveconfirmedProblemTobacco user (966243213) Nicotine dependence, unspecified, uncomplicated (F17.200)ActiveconfirmedProblem Chronic postoperative pain (437615197480097)Other chronic postprocedural pain (G89.28)ActiveconfirmedProblemChronic pain (70564055)Other chronic pain (G89.29) ActiveconfirmedProblemEssential hypertension (25356613)Essential (primary) hypertension (I10)ActiveconfirmedProblemSciatica (93148490)Lumbago with sciatica, right side (M54.41)ActiveconfirmedProblemSciatica (51720739)Lumbago with sciatica, left side (M54.42)ActiveconfirmedProblemLow back pain (716241481) Low back pain (M54.5)ActiveconfirmedProblemHyperlipidemia (34835188) Hyperlipidemia (E78.5)ActiveconfirmedProblemAnxiety (20849484)Anxiety (F41.9) ActiveconfirmedProblemAsthma (285616289)Asthma (J45.909)ActiveconfirmedProblem Neuropathy (759015911)Neuropathy (G62.9)ActiveconfirmedProblemUrinary frequency (224972815)Urinary frequency (R35.0)ActiveconfirmedProblemChronic pain (94546681)Other chronic pain (G89.29)ActiveconfirmedProblemChronic sinusitis (85115140)Sinusitis, unspecified chronicity, unspecified location (J32.9)Active confirmedProblemMigraine (61233348)Migraine without status migrainosus, not intractable, unspecified migraine type (G43.909)ActiveconfirmedProblemPulmonary emphysema (68150209)Pulmonary emphysema, unspecified emphysema type (J43.9) ActiveconfirmedProblemGastroesophageal reflux disease (424425930) Gastroesophageal reflux disease, esophagitis presence not specified (K21.9) ActiveconfirmedProblemInsomnia (147938719)Insomnia, unspecified type (G47.00) ActiveconfirmedProblemInfection of tooth (disorder) (234546207)Tooth infection (K04.7)ActiveconfirmedProblemXerostomia (88402665)Xerostomia (K11.7)Active confirmedProblemDifficulty walking (810829812)Difficulty walking (R26.2)Active confirmedProblemChronic sinusitis (53698445)Chronic sinusitis, unspecified location (J32.9)ActiveconfirmedProblemSciatica (84024366)Sciatica of right side (M54.31)ActiveconfirmedProblemChronic idiopathic constipation (07485954)Chronic idiopathic constipation (K59.04)ActiveconfirmedProblemCallous ulcer (morphologic abnormality) (412954994)Callous ulcer, limited to breakdown of skin (L98.491) ActiveconfirmedProblemMixed bipolar affective disorder, moderate (728944032) Bipolar 1 disorder, mixed, moderate (F31.62)ActiveconfirmedProblemMajor depression, single episode (73041861)Major depressive episode (F32.9)Active confirmedProblemBipolar 2 disorder (57135628)Bipolar 2 disorder (F31.81)Active confirmedProblemHypercalcemia (62582995)Serum calcium elevated (E83.52)Active confirmedProblemStenosis of left carotid artery (373210635498688)Stenosis of left carotid artery (I65.22)ActiveconfirmedProblemType II diabetes mellitus without complication (759681503)Type 2 diabetes mellitus without complication, unspecified whether 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 insulin use (E11.9)ActiveconfirmedProblemAlcohol abuse (77628102)Alcohol use disorder, mild, abuse (F10.10)ActiveconfirmedProblem Atherosclerosis of both carotid arteries (503577560622174)Atherosclerosis of both carotid arteries (I65.23)ActiveconfirmedProblemGait difficulty (36948012) Gait difficulty (R26.9)ActiveconfirmedProblemPersistent depressive disorder (3038055592)Persistent depressive disorder (F34.1)ActiveconfirmedProblemBody mass index 40+ - severely obese (277689890)Body mass index [BMI] 40.0-44.9, adult (Z68.41)ActiveconfirmedProblemCholelithiasis without obstruction (13478251)Symptomatic cholelithiasis (K80.20)ActiveconfirmedProblemObese class III (finding) (834127663)Obesity, class 3 (E66.813)Activeconfirmed Vital Signs Heart Rate 79 /min 09/09/2025 Ajlzbllptsp72.0 degrees Hkweswzifn29/17/2025Respiratory Rate20 /min07/01/2025 Yuaughzf61 %09/09/2025lood pressure mm Hg09/09/20254453Lhkeoo27 in 09/09/2025lood pressure mm Hg09/09/20257231Clfjfa905 lbs10MI 46.65 kg/m209/09/2025 Encounters Encounter Location Date Provider Diagnosis [facility] [address] [place] [address] 10/12/2024 Reginaldo Hanley Anxiety F41.9 [facility] [address] [place] [address] 10/20/2024 [facility] [place] [address]/03/2024 Reginaldo HanleyNausea and vomiting, unspecified vomiting type R11.2[facility] [address] [place] [address]/04/2024[facility] [place] [address]/10/2024 Reginaldo MitchellJustin back pain M54.5[facility] [address] [place] [address]/[facility] [place] [address]/[facility] [place] [address]/08/2025[facility] [place] [address] [facility] [place] [address] [facility] [place] [address]/01/2025 Reginaldo House, class [address] [place] [address]/01/2025[facility] [place] [address]/04/2025[facility] [place] [address]/08/2025[facility] [address] [place] [address]/09/2025[facility] [place] [address]/ Hair VincentInsomnia, unspecified type G47.[address] [address] [place] [address]/[place] Vincent Anxiety F41.9[facility] [address] [place] [address]/Stanton VincentIntertriginous candidiasis B37.2[facility] [address] [place] [address]/[facility] [place] [address]/ [facility] [place] [address]/Stanton VincentPulmonary emphysema, unspecified emphysema type J43.9[facility] [place] [address] 06/17/2025[facility] [facility] [place] [address]/[facility] [address] [place] [address]/[facility] [place] [place] [address]/11/2024[facility] [address] [place] [address]/11/2024[facility] [place] [place] [address]/09/2025[facility] [place] [place] [address]/11/2025[facility] [place] [address]/[facility] [place] [address] 07/12/2025[facility] [address] [place] [address]/02/2025[facility] [address] [place] [address]/[facility] [place] [address]/[facility] [place] [address]/[facility] [place] [address]/ [facility] [place] [address]/07/2025[facility] [place] [address]/03/2025[facility] [place] [address]/[facility] CenterentType 2 diabetes mellitus with unspecified complications E11.8 ; Pain management contract signed Z02.89 ; Intertriginous candidiasis B37.2 ; Anxiety F41.9 ; Sciatica of right side M54.31 and Low back pain M54.5[facility] [address] [place] [address]/[facility] CenterentPain management contract broken Z91.148 ; Pain in right hip M25.551 ; Pain in left hip M25.552 ; Lumbago with sciatica, right side M54.41 ; Lumbago with sciatica, left side M54.42 ; Other chronic pain G89.29 ; Essential hypertension I10 ; Right flank pain R10.9 and Increased urinary frequency R35.0[facility] [place] [address]/[facility] VincentType 2 diabetes mellitus with unspecified complications E11.8 ; Lumbago with sciatica, right side M54.41 ; Screening due Z13.9 ; Screening mammogram for breast cancer Z12.31 ; Morbid (severe) obesitydue to excess calories E66.01 ; Body mass index [BMI] 40.0-44.9, adult Z68.41 ; Obesity, class 3 E66.813 ; Major depressive episode F32.9 ; Persistent depressive disorder F34.1 and Essential hypertension S77MvgouaHind General Hospital[address] [facility] [place] [address]/n Vincent Neuropathic pain M79.2 ; Neuropathy G62.9 ; Asthma J45.909 ; Type 2 diabetes mellitus with unspecified complications E11.8 and Screening due Z13.9[place] [address] [facility] [place] [address]/[facility] hospitaln VincentType 2 diabetes mellitus with unspecified complications E11.8 ; Low back pain M54.5 ; Sciatica of right side M54.31 ; Gait difficulty R26.9 ; Other chronic pain G89.29 ; Screening due Z13.9 ; Intertriginous candidiasis B37.2 ; Morbid (severe) obesity due to excess calories E66.01 and Pulmonary emphysema, unspecified emphysema type J43.9[place] [address] [place] [address]/anton VincentLumbago with sciatica, left side M54.42 ; Lumbago with sciatica, right side M54.41 ; Difficulty walking R26.2 ; Other chronic pain G89.29 ; Gait difficulty R26.9 ; Low back pain M54.5 and Sciatica ofright side M54.31[place] [address] [place] [address]/[facility] hospitaln VincentType 2 diabetes mellitus with unspecified complications E11.8 ; Pulmonary emphysema, unspecified emphysema type J43.9 ; Neuropathic pain M79.2 ; Body mass index [BMI] 40.0-44.9, adult Z68.41 and Obesi ty, class 3 E66.813[facility] [place] [address]/lexa zzzMurrayLack of access to transportation Z91.89[facility] [place] [address]/lexa zzzMurrayLack of access to transportation Z91.89[facility] [place] [address]/lexa zzzMurrayLack of access to transportation Z91.89 Assessments Encounter Date Diagnosis (ICD Code) Assessment Notes Treatment Notes Treatment Clinical Notes Section Notes 12/20/2024 Lack of access to transportation (ICD-10 - Z91.89) Pt transported to and from tuygcnyzukk03/27/2025Pain in right hip (ICD-10 - M25.551)12/20/2024Pain management contract broken (ICD-10 - Z91.148)Drug screen reveals negativity for all drugs. Due [...] care. Follow-up in 1 month concerning blood pressure.01/18/2025Lack of access to transportation (ICD- 10 - Z91.89)Pt transported to and from vsupwdgmpzq75/25/2025Type 2 diabetes mellitus with unspecified complications (ICD-10 - E11.8)A1c is 6.3% today. Diet and exercise were discussed with patient. Patient notes it is difficult forher to exercise due to her pain in [...] office. Patient voices understanding and agreement to theplan of care. Follow-up in 1 month for chronic care needs. 01/18/2025Lumbago with sciatica, right side (ICD-10 - M54.41)01/24/2025Obesity, class 3 (ICD-10 - E66.813)03/15/2025Insomnia, unspecified type (ICD-10 - G47.00) 03/15/2025nxiety (ICD-10 - F41.9)03/15/2025Lack of access to transportation (ICD-10 - Z91.89)Pt transported to and from ipirsexswvr49/22/2025Neuropathy (ICD-10 - G62.9)03/15/2025Neuropathic pain (ICD-10 - M79.2)- Referral to pain management has been sent to [place] to ensure appropriate management of pain symptoms.- Gabapentin prescription has been refilled. Monitoring of kidney function is necessary beforefurther refills.- A kidney function test is required [...] virtual consultation is available to accommodate transportation challenges.04/05/2025Intertriginous candidiasis (ICD-10 - B37.2) 06/07/2025Type 2 diabetes mellitus with unspecified complications (ICD-10 - E11.8)Pertaining to the patient's type 2 diabetes mellitus with A1c at 6.7% today, I instruct the patientto watch her carbohydrate intake and to watch her diet. Patient voices understanding and agrees to do this. I will increase her metformin to 750 mg once a day and send Mounjaro at this time. Concerning her low back pain, sciatica of right side, gait difficulty, and other chronic pain, I will send aprescription for a walker and shower chair at this time. She would also like a pain management referral to the area of [facility]. I have sent this at this time. Pertaining to her hospital visit in [place], I will have the patient sign a medical release form to get more information about her hospital stay there and alter treatment accordingly. 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 Patient voices understanding to this. Refills are placed at this time for losartan, nystatin, and epinephrine. Patient also needs a refill of her beta- rory for her nebulizer. This has been placed at this time. All questions and concerns were addressed with the patient. Follow-up in 3 months for chronic conditions.06/07/2025Low back pain (ICD-10 - M54.5)06/17/2025Pulmonary emphysema, unspecified emphysema type (ICD-10 - J43.9)07/01/2025Lumbago with sciatica, left side (ICD-10 - M54.42)Medical necessity as described as above. I will print off the note today and give it to the patient. I will personally sign it myself. Preceptor will also sign the note from today as well. We will send the paperwork with the fax from the rollator supply company. We will await their decision. Prescription for rollator is sent at this time. All questions and concerns were addressed to the patient. Follow-up for chronic needs as scheduled.11/04/2024Low back pain (ICD-10 - M54.5)11/04/2024Type 2 diabetes mellitus with unspecified complications (ICD-10 - E11.8)11/04/2024ain management contract signed (ICD-10 - Z02.89)Pain management contract was extensively explained to the [...] refilled at this time. Follow-up in 1 month.10/28/2024Nausea and vomiting, unspecified vomiting type (ICD-10 - R11.2)10/12/2024nxiety (ICD-10 - F41.9) 09/09/2025Type 2 diabetes mellitus with unspecified complications (ICD-10 - E11.8)For patient's type 2 diabetes mellitus, I will send referral to dietitian at this time for the foodis medicine program. Due to Victoza not having much of an effect on suppressing her appetite, we will increase it to 1.2 mg/day. I have refilled the leave albuterol at this time. Again, patient needsthis medication other than albuterol because of the side effects that the patient had under albuterol which include severe anxiety, jitteriness, and racing heart. Refills are placed at this time. PFTsent to assess current lung function. I informed the patient to get her baseline labs done which are in place already. Patient voices that she will do so. Patient notes that she will get her labs done within the next few days. Patient is slowly improving on her diabetes care. I am hopeful that we will be able to get it under 6.5 soon. All questions and concerns were addressed with the patient. Follow-up in 1 month for diabetes and weight.09/09/2025Pulmonary emphysema, unspecified emphysema type (ICD-10 - J43.9)09/09/2025Neuropathic pain (ICD-10 - M79.2)11/04/2024Intertriginous candidiasis (ICD-10 - B37.2)07/01/2025Lumbago with sciatica, right side (ICD-10 - M54.41)06/07/2025Sciatica of right side (ICD-10 - M54.31)03/15/2025sthma (ICD-10 - J45.909)03/15/2025nxiety (ICD-10 - F41.9)01/18/2025Screening due (ICD-10 - Z13.9)12/20/2024Pain in left hip (ICD-10 - M25.552)12/20/2024Lumbago with sciatica, right side (ICD-10 - M54.41)03/15/2025Type 2 diabetes mellitus with unspecified complications (ICD-10 - E11.8)01/18/2025Screening mammogram for breast cancer (ICD-10 - Z12.31)06/07/2025Gait difficulty (ICD-10 - R26.9) 4Anxiety (ICD-10 - F41.9)07/01/2025Difficulty walking (ICD-10 - R26.2) 09/09/2025ody mass index [BMI] 40.0-44.9, adult (ICD-10 - Z68.41)09/09/2025 Obesity, class 3 (ICD-10 - E66.813)07/01/2025Other chronic pain (ICD-10 - G89.29)11/04/2024Sciatica of right side (ICD-10 - M54.31)03/15/2025Screening due (ICD-10 - Z13.9)06/07/2025Other chronic pain (ICD-10 - G89.29)12/20/2024Lumbago with sciatica, left side (ICD-10 - M54.42)02/25/2025Morbid (severe) obesity due to excess calories (ICD-10 - E66.01)12/20/2024Other chronic pain (ICD-10 - G89.29)06/07/2025Screening due (ICD-10 - Z13.9)01/18/2025ody mass index [BMI] 40.0-44.9, adult (ICD-10 - Z68.41)11/04/2024Low back pain (ICD-10 - M54.5) 07/01/2025Gait difficulty (ICD-10 - R26.9)01/18/2025Obesity, class 3 (ICD-10 - E66.813)06/07/2025Intertriginous candidiasis (ICD-10 - B37.2)07/01/2025Low back pain (ICD-10 - M54.5)12/20/2024Essential hypertension (ICD-10 - I10)06/07/2025 Morbid (severe) obesity due to excess calories (ICD-10 - E66.01)01/18/2025Major depressive episode (ICD-10 - F32.9)12/20/2024Right flank pain (ICD-10 - R10.9) 07/01/2025Sciatica of right side (ICD-10 - M54.31)01/18/2025Persistent depressive disorder (ICD-10 - F34.1)06/07/2025Pulmonary emphysema, unspecified emphysema type (ICD-10 - J43.9)12/20/2024Increased urinary frequency (ICD-10 - R35.0)01/18/2025Essential hypertension (ICD-10 - I10)11/04/2024OtherBody Mass Index: Care Instructions material was printed, Body Mass Index: Care Instructions material was printed, Learning About Benefits of Quitting Smoking material was cyjgunw6506/07/2025OtherBody Mass Index: Care Instructions material was printed, Learning About Benefits of Quitting Smoking material was printed 07/01/2025OtherBody Mass Index: Care Instructions material was published, Learning About Benefits of Quitting Smoking material was published Plan Of Treatment Pending Test Test Name Order Date Comprehensive Metabolic Panel 03/15/2025 Lipid Panel 03/15/2025 Thyroid Stim Hormone w/Rflx 03/15/2025 Complete Blood Count Auto Diff CT abdomen pelvis wo con 12/20/2024 MM screening mammo BI w/CAD 01/18/2025 PFT pre/post spirometry 09/09/2025 Next Appt Details Provider Name:Reginaldo hinton, 10/10/2025 01:30:00 PM, [address], [place], [address], Insurance Providers Payer Name Payer Address Payer Phone Subscriber Number Group Number Insured Name Patient Relationship to Insured Coverage Start Date Coverage End Date [facility] [address] [place] [address] [id number] Laron CUNHA - patient is the qbwfmcq9612/25/2022Wrap ABD CareSourcePO [address] [place] [id number], HEATHERSelf - patient is the rlptfgo2412/25/2022[employer]-termed 12/24/22[address] [place] [id number], HEATHERSelf - patient is the insured zMEDICAID ABD after [employer] 12/24/22[address] [place] [id number], HEATHERSelf - patient is the [id number] [employer] 12/24/22[address] [place] [phone], HEATHERSelf - patient is the jjeqahq3901/22/2021zDENTAL DQ [employer] 12/24/22[address] [place] [phone], HEATHERSelf - patient is the insured 05/24/2021zDental Medicaid ABD after [employer] 12/24/22[address] [place] [id number], HEATHERSelf - patient is the jfthawv8606/24/2021MEDICAID [address] [place] [address] [phone], HEATHERSelf - patient is the [id number]/24/2023 .Transport ABD [employer] wrapPO [address] [place] [phone] [id number], HEATHERSelf - patient is the lxylfrp5512/25/2023[facility] [place] [phone], HEATHERSelf - patient is the Medical (General) History Medical History History ICD Code LEVEL 4 HTNDMOA of spinebipolaremphysemaHernia [place] [facility] (hypertension)[id number] gallstonesSurgical History Surgery Date(Month/Year) back surgery 04,05,06 tonsilectomy as child appendectomy as teenagerTKA R kneeOct 2014TKA L kneefe 2015total abdominal [id number]/2024Hospitalization History Reason Date(Month/Year) ICU stay for pneumonia 2011 Vaginal Lacerations 2019
[2025-10-02 11:44] VITALS: BP 134/88; PULSE 92; TEMP 36.6; O2SAT 95; BMI 44.9
[2025-10-02] MEDS: HYDROMORPHONE HCL 0.5 MG/0.5 ML SYRINGE IM (12:05)
[2025-10-02] MEDS: ORPHENADRINE 60 MG/2 ML VIAL IM (12:06)
[2025-10-02] MEDS: HYDROCODONE/ACET 5-325 MG TABLET 2 TAB PO (12:58)
--- NOTE | 2025-10-02 17:30 | ED.GENADUL1 ---
HPI HPI - General Adult General Chief complaint: Back Pain/Injury Stated complaint: BACK AND SIDE PAIN RADIATING TO THE FOOT Time Seen by Provider: 10/02/25 11:35 Source: patient Mode of arrival: Wheelchair History of Present Illness HPI narrative: Patient is 65-year-old female, history significant for chronic right-sided radiculopathy/sciatica, presenting to the emergency department questing pain medications for her sciatica. She denies any recent falls or injuries. No loss of bladder/bowel function. No numbness/tingling/weakness in the lower extremities. She has chronic foot drop, which is unchanged today. She has yet to follow-up with a pain management doctor because she cannot find a place that we will take her Medicaid. Related Data Home Medications ?Medication ?Instructions ?Recorded ?Confirmed amlodipine 10 mg tablet 10 mg PO DAILY 05/26/25 10/02/25 atorvastatin 80 mg tablet 80 mg PO DAILY 05/26/25 10/02/25 budesonide-formoterol HFA 80 2 inh inhalation Q12H 05/26/25 10/02/25 mcg-4.5 mcg/actuation aerosol inhaler (Symbicort) fluticasone propionate 50 2 spray intranasal Q12H 05/26/25 10/02/25 mcg/actuation nasal spray,suspension gabapentin 600 mg tablet 600 mg PO DAILY 05/26/25 10/02/25 ipratropium bromide 17 2 inh inhalation Q4H PRN shortness 05/26/25 10/02/25 mcg/actuation HFA aerosol inhaler of breath or wheezing (Atrovent HFA) losartan 50 mg tablet 50 mg PO DAILY 05/26/25 10/02/25 melatonin 3 mg tablet 3 mg PO BEDTIME 05/26/25 10/02/25 metformin 500 mg tablet,extended 500 mg PO DAILY 05/26/25 10/02/25 release 24 hr omeprazole 40 mg capsule,delayed 40 mg PO DAILY 05/26/25 10/02/25 release propranolol 160 mg capsule,24 160 mg PO Q24H 05/26/25 10/02/25 hr,extended release liraglutide 0.6 mg/0.1 mL (18 mg/3 0.6 mg subcut Q24H 08/18/25 10/02/25 mL) subcutaneous pen injector ([employer]-Neeraj) hydroxyzine HCl 50 mg tablet mg 10/02/25 lidocaine HCl 4 % topical cream 10/02/25 (Aspercreme (lidocaine HCl)) nystatin 100,000 unit/gram topical topical 10/02/25 powder tizanidine 4 mg tablet mg 10/02/25 Allergies Allergy/AdvReac Type Severity Reaction Status Date / Time Penicillins Allergy Severe Unknown Verified 05/26/25 08:29 topiramate (From Topamax) Allergy Severe Hives Verified 07/24/25 11:40 aspirin Allergy Unknown Unknown Verified 05/26/25 08:29 Iodinated Contrast Media Allergy Unknown Unknown Verified 05/26/25 08:29 lisinopril Allergy Unknown Unknown Verified 05/26/25 08:29 prednisone Allergy Unknown Unknown Verified 05/26/25 08:29 Sulfa (Sulfonamide Allergy Unknown Unknown Verified 05/26/25 08:29 Antibiotics) sumatriptan (From Imitrex) Allergy Unknown Unknown Verified 05/26/25 08:29 tramadol (From Ultram) Allergy Unknown Unknown Verified 05/26/25 08:29 ondansetron AdvReac Intermediate Migraine Verified 07/24/25 12:28 Opioid HPI Opioid Management Most Recent Opioid Data: Last Pain Scale 10 08/18/25, 05:37 Review of Systems ROS Status of ROS 10 or more systems reviewed and unremarkable except as noted in history and below PFSH PFSH Social History Little interest or pleasure in doing things: not at all Feeling down, depressed, or hopeless: not at all Exam Narrative Exam Narrative: CONSTITUTIONAL: No acute distress, answering questions and following commands appropriately SKIN: Was warm and dry. EYES: Sclerae white. EARS, NOSE, THROAT: Moist oral mucosa. RESPIRATORY: Clear to auscultation bilaterally, no wheezes, crackles, or stridor, no use of accessory muscles CARDIOVASCULAR: Normal rate and regular rhythm. There is no S3, S4, murmur, rub. GASTROINTESTINAL: Abdomen is nondistended. MUSCULOSKELETAL: Full range of motion in the bilateral lower extremities. No peripheral edema. Ambulates with a steady gait. NEUROLOGIC: Patient is awake and alert. 5/5 strength with hip flexion/extension, knee flexion/extension, ankle plantar/dorsiflexion of bilateral lower extremities. Sensation intact light touch in the bilateral lower extremities, including in the inner thighs. Facies were symmetrical. Constitutional Vital Signs, click to edit/add: Last Vital Signs Temp 98 F 10/02/25 11:44 Pulse 92 H 10/02/25 11:44 Resp 20 10/02/25 11:44 BP 134/88 10/02/25 11:44 Pulse Ox 95 10/02/25 11:44 O2 Del Method Room Air 10/02/25 11:44 Course Vital Signs Vital signs: Vital Signs Temperature 98 F 10/02/25 11:44 Pulse Rate 92 H 10/02/25 11:44 Respiratory Rate 20 10/02/25 11:44 Blood Pressure 134/88 10/02/25 11:44 Pulse Oximetry 95 10/02/25 11:44 Oxygen Delivery Method Room Air 10/02/25 11:44 Temperature 98 F 10/02/25 11:44 Pulse Rate 92 H 10/02/25 11:44 Respiratory Rate 20 10/02/25 11:44 Blood Pressure 134/88 10/02/25 11:44 Pulse Oximetry 95 10/02/25 11:44 Oxygen Delivery Method Room Air 10/02/25 11:44 Medical Decision Making [facility] Narrative Medical decision making narrative: Patient is a 65 female, history significant for chronic right-sided sciatica and foot drop, presenting to the emergency department for acute exacerbation of her sciatica pain. Her vital signs on arrival are within normal limits. She is afebrile and hemodynamically stable. Examination as noted above. Clinical impression is of the patient symptoms are secondary to acute on chronic sciatica pain. She has neurovascular intact in lower extremities without evidence of cauda equina syndrome. She was treated symptomatically with [place], Norflex, Zofran, and IM Dilaudid. On reevaluation, patient states her symptoms have improved. She was given 2 tabs of [place] to go home with. She was instructed to follow-up with her PCP for further care. Return precautions were given including any new or concerning symptoms. Patient understands and agrees to the plan. FINAL IMPRESSION: #Acute on chronic right-sided sciatica DISPOSITION: Discharged home CONDITION: Good Medical Records Medical records reviewed: Yes I reviewed the patient's medical records Discharge Plan Discharge Chief Complaint: Back Pain/Injury Clinical Impression: Sciatica Patient Disposition: Home, Self-Care Time of Disposition Decision: 12:41 Condition: Good Mode of Transportation: Private Vehicle Prescriptions / Home Meds: No Action amlodipine 10 mg tablet 10 mg PO DAILY atorvastatin 80 mg tablet 80 mg PO DAILY budesonide-formoterol [Symbicort] 80-4.5 mcg/actuation HFA aerosol inhaler 2 inh INHALATION Q12H fluticasone propionate 50 mcg/actuation spray,suspension 2 spray INTRANASAL Q12H gabapentin 600 mg tablet 600 mg PO DAILY Atrovent HFA 17 mcg/actuation HFA aerosol inhaler 2 inh INHALATION Q4H PRN (Reason: shortness of breath or wheezing) metformin 500 mg tablet extended release 24 hr 500 mg PO DAILY melatonin 3 mg tablet 3 mg PO BEDTIME losartan 50 mg tablet 50 mg PO DAILY omeprazole 40 mg capsule,delayed release(DR/EC) 40 mg PO DAILY propranolol 160 mg capsule,extended release 24 hr 160 mg PO Q24H liraglutide [Victoza 2-Neeraj] 0.6 mg/0.1 mL (18 mg/3 mL) pen injector 0.6 mg SUBCUT Q24H tizanidine 4 mg tablet hydroxyzine HCl 50 mg tablet nystatin 100,000 unit/gram powder TOPICAL lidocaine HCl [Aspercreme (lidocaine HCl)] 4 % cream Print Language: Liberian Instructions: Sciatica (ED) Referrals: [facility] [Primary Care Provider] - 1 week Discharge Date/Time: 10/02/25 13:05
== END 2025-10-02 13:05 | disposition home or self-care (01) ==
PROVIDERS: Emergency Provider Student in an Organized Health Care Education/Training Program
DX: M54.31 Sciatica, right side (principal); M21.371 Foot drop, right foot
CPT/HCPCS: 96372; 99284; J1171; J2360